=== PATIENT | female | born 1995 | race Caucasian/White ===

== ENCOUNTER → 2017-01-31 | Outpatient (CLI) | payer BC ==
--- NOTE | 2017-01-31 10:18 | REP ---
Clinical: . Technique: AP, lateral, bilateral oblique views right foot. Comparison: 04/05/2014. Findings: The osseous structures and joint spaces are intact and normal. There is no evidence for acute fracture or dislocation. Surrounding soft tissues are unremarkable. No subcutaneous emphysema or radiodense foreign body. Impression: Normal examination. No obvious pathology. Stable compared to 2013. Signed by Kunal Perez MD 01/31/2017 10:10 A
== END ==
LOC: M LRY 09:54
PROVIDERS: ATTEND Physician Assistant
DX: M79.671 Pain in right foot (principal)

== ENCOUNTER → 2017-07-31 | Outpatient (REF) | payer BC | LOC: M SFHCLERA 12:13 | PROVIDERS: ATTEND Nurse Practitioner Family | DX: J02.9 Acute pharyngitis, unspecified (principal) ==

== ENCOUNTER → 2017-12-29 | Outpatient (REF) | payer BC | LOC: M SFHCLERA 09:34 | DX: J02.9 Acute pharyngitis, unspecified (principal) ==

== ENCOUNTER → 2017-12-30 | Outpatient (REF) | payer BC | LOC: M SFHCLERA 10:29 | DX: R30.0 Dysuria (principal) | CPT/HCPCS: 87086 ==

== ENCOUNTER → 2018-10-31 | Outpatient (REF) | payer BC | LOC: M SFHCLERA 10:58 | PROVIDERS: ATTEND Family Medicine | DX: K50.00 Crohn's disease of small intestine without complications (principal) ==

== ENCOUNTER 2019-05-06 06:48 | Day surgery (SDC) | payer BC ==
[~2019-05-06] VITALS: Ht 121.9 cm; Wt 68.5 kg
[~2019-05-06 06:48] MED LIST: DULE100A IN; JULE1TAB PO; NS 1,000 ML IV ONE; SING10TA32 PO; ZYRTTAB8 PO
[2019-05-06] MEDS ORDERED: PROPOFOL 500 MG/50 ML VIAL As Ordered ONE (07:36)
[2019-05-06] MEDS ORDERED: LIDOCAINE 2% INJ 100 MG/5 ML SDV (FOR ANES.) As Ordered ONE (07:36)
--- NOTE | 2019-05-06 08:07 | ROOR ---
Patient Name: Aimee Morales Procedure Date: 05/06/2019 7:29 AM Date of : 1995 Age: 24 Room: [facility] Gender: Female Note Status: Finalized Procedure: Colonoscopy Indications: Suspected Crohn's disease of the small bowel, Abnormal CT of the GI tract Providers: Sonido Santacruz MD Referring MD: [facility] ALYSSA [facility], Admin. Requesting Provider: Medicines: Monitored Anesthesia Care Complications: No immediate complications. Procedure: Pre-Anesthesia Assessment: - Prior to the procedure, a History and Physical was performed, and patient medications and allergies were reviewed. The patient is competent. The risks and benefits of the procedure and the sedation options and risks were discussed with the patient. All questions were answered and informed consent was obtained. Patient identification and proposed procedure were verified by the physician, the nurse and the anesthesiologist in the procedure room. Mental Status Examination: alert and oriented. Airway Examination: normal oropharyngeal airway and neck mobility. Respiratory Examination: clear to auscultation. CV Examination: normal. Prophylactic Antibiotics: The patient does not require prophylactic antibiotics. Prior Anticoagulants: The patient has taken no previous anticoagulant or antiplatelet agents. ASA Grade Assessment: II - A patient with mild systemic disease. After reviewing the risks and benefits, the patient was deemed in satisfactory condition to undergo the procedure. The anesthesia plan was to use monitored anesthesia care (MAC). Immediately prior to administration of medications, the patient was re-assessed for adequacy to receive sedatives. The heart rate, respiratory rate, oxygen saturations, blood pressure, adequacy of pulmonary ventilation, and response to care were monitored throughout the procedure. The physical status of the patient was re-assessed after the procedure. The Colonoscope was introduced through the anus and advanced to the terminal ileum, with identification of the appendiceal orifice and IC valve. The colonoscopy was performed without difficulty. The patient tolerated the procedure well. The quality of the bowel preparation was good. The terminal ileum, ileocecal valve, appendiceal orifice, and rectum were photographed. Scope insertion time was 3 minutes. Scope withdrawal time was 9 minutes. The total duration of the procedure was 12 minutes. Findings: The perianal and digital rectal examinations were normal. The ileocecal valve contained a benign-appearing, intrinsic severe stenosis that was non-traversed. Multiple biopsies were obtained in the terminal ileum and at the ileocecal valve with cold forceps for histology. Verification of patient identification for the specimen was done by the physician and nurse using the patient's name, date and medical record number. Estimated blood loss was minimal. A patchy area of granular mucosa was found in the cecum. Biopsies for histology were taken with a cold forceps for evaluation of celiac disease. Normal mucosa was found from rectum to ascending colon. The retroflexed view of the distal rectum and anal verge was normal and showed no anal or rectal abnormalities. Impression: - Stricture at the ileocecal valve. - Granularity in the cecum. Biopsied. - Normal mucosa from rectum to ascending colon. - The distal rectum and anal verge are normal on retroflexion view. - Multiple biopsies were obtained in the terminal ileum and at the ileocecal valve. Recommendation: - Patient has a contact number available for emergencies. The signs and symptoms of potential delayed complications were discussed with the patient. Return to normal activities tomorrow. Written discharge instructions were provided to the patient. - Resume previous diet. - Continue present medications. - Await pathology results. - Check IBD serology at appointment to be scheduled. - Return to GI clinic 2-3 weeks. Please call GI clinic @ [phone] for apppointment date and time. - Return to primary care physician. Sonido Santacruz MD Sonido Santacruz MD 05/06/2019 8:07:15 AM Electronically signed by Sonido Santacruz MD Number of Addenda: 0 Note Initiated On: 05/06/2019 7:29 AM Estimated Blood Loss: Estimated blood loss was minimal.
[2019-05-06 08:29] VITALS: BP 94/60
== END 2019-05-06 08:31 | disposition home or self-care (01) ==
LOC: M OPP 06:48
PROVIDERS: ATTEND Internal Medicine Gastroenterology
DX: K56.699 Other intestinal obstruction unspecified as to partial versus complete obstruction (principal); K52.9 Noninfective gastroenteritis and colitis, unspecified; R93.3 Abnormal findings on diagnostic imaging of other parts of digestive tract

== ENCOUNTER → 2019-05-26 | Outpatient (CLI) | payer BC ==
[~2019-05-26] MED LIST changes: +AZAT50TA2; +BUDE3CAP; -NS 1,000 ML IV ONE; +OMEP40CA97 PO; +ONDA4TAB6 PO; +PERC5TAB12 PO
[2019-05-26 07:21] LABS: BASO % 0.4 % (0.0-1.0); EOS % 0.1 % (0.0-3.0); HEMATOCRIT 42.4 % (36.0-47.0); HEMOGLOBIN 13.1 g/dl (12.0-15.5); LYMPH # 0.9 10^3/uL (1.5-6.5); LYMPH % 14.1 % (24.0-44.0); MEAN CORPUSCULAR HEMOGLOBIN 25.7 pg (27.0-33.0); MEAN CORPUSCULAR HGB CONC 30.9 g/dl (32.0-36.5); MEAN CORPUSCULAR VOLUME 83.3 fl (80.0-96.0); MONO # 0.2 10^3/uL (0.0-0.8); MONO % 2.5 % (0.0-5.0); NEUTROPHILS # 5.5 10^3/uL (1.8-7.7); NEUTROPHILS % 82.8 % (36.0-66.0); PLATELET COUNT, AUTOMATED 391 10^3/uL (150-450); RED BLOOD COUNT 5.09 10^6/uL (4.00-5.40); WHITE BLOOD COUNT 6.7 10^3/uL (4.0-10.0)
[2019-05-26 07:46] LABS: ALBUMIN 3.5 GM/DL (3.2-5.2); ALT/SGPT 37 U/L (12-78); BILIRUBIN,DIRECT 0.1 MG/DL (0.0-0.2); BILIRUBIN,TOTAL 0.3 MG/DL (0.2-1.0); BLOOD UREA NITROGEN 10 MG/DL (7-18); CREATININE FOR GFR 0.76 MG/DL (0.55-1.30); GLOMERULAR FILTRATION RATE > 60.0 (>60); TOTAL PROTEIN 7.9 GM/DL (6.4-8.2)
[2019-05-26 11:37] LABS: HEPATITIS C VIRUS ABY INDEX 0.1 INDEX (<0.8)
[2019-05-26 12:09] LABS: HEPATITIS B SURFACE ANTIBODY NEGATIVE (POSITIVE)
[2019-05-27 10:39] LABS: HEPATITIS B CORE ANTIBODY IGG Negative (Negative)
== END ==
LOC: M LAB 05-24 13:29
PROVIDERS: ATTEND Internal Medicine Gastroenterology
DX: K50.018 Crohn's disease of small intestine with other complication (principal)

== ENCOUNTER → 2019-06-23 | Outpatient (CLI) | payer BC ==
[~2019-06-23] MED LIST changes: +OMEP40CA2 PO; -OMEP40CA97 PO
[2019-06-23 13:42] LABS: BASO # 0.1 10^3/uL (0.0-0.2); BASO % 0.6 % (0.0-1.0); EOS # 0.3 10^3/uL (0.0-0.50); EOS % 2.6 % (0.0-3.0); HEMATOCRIT 40.7 % (36.0-47.0); HEMOGLOBIN 12.1 g/dl (12.0-15.5); LYMPH # 2.9 10^3/uL (1.5-6.5); LYMPH % 28.6 % (24.0-44.0); MEAN CORPUSCULAR HEMOGLOBIN 25.6 pg (27.0-33.0); MEAN CORPUSCULAR HGB CONC 29.7 g/dl (32.0-36.5); MEAN CORPUSCULAR VOLUME 86.2 fl (80.0-96.0); MONO # 0.7 10^3/uL (0.0-0.8); MONO % 6.4 % (0.0-5.0); NEUTROPHILS # 6.3 10^3/uL (1.8-7.7); NEUTROPHILS % 61.5 % (36.0-66.0); PLATELET COUNT, AUTOMATED 475 10^3/uL (150-450); RED BLOOD COUNT 4.72 10^6/uL (4.00-5.40); WHITE BLOOD COUNT 10.2 10^3/uL (4.0-10.0)
[2019-06-23 14:15] LABS: ALBUMIN 3.3 GM/DL (3.2-5.2); ALT/SGPT 24 U/L (12-78); BILIRUBIN,DIRECT < 0.1 MG/DL (0.0-0.2); BILIRUBIN,TOTAL 0.3 MG/DL (0.2-1.0); TOTAL PROTEIN 7.3 GM/DL (6.4-8.2)
== END ==
LOC: M LAB 07:15
PROVIDERS: ATTEND Internal Medicine Gastroenterology
DX: K50.018 Crohn's disease of small intestine with other complication (principal)

== ENCOUNTER 2019-06-25 11:26 | Emergency (ER) | payer BC ==
[~2019-06-25] VITALS: Ht 149.9 cm; Wt 70.2 kg
[~2019-06-25 11:26] MED LIST changes: -AZAT50TA2; -BUDE3CAP; -OMEP40CA2 PO; -ONDA4TAB6 PO; -PERC5TAB12 PO
[2019-06-25] MEDS ORDERED: AZAT50TA2 (11:32)
[2019-06-25] MEDS ORDERED: OMEP40CA97 PO (11:32)
[2019-06-25] MEDS ORDERED: BUDE3CAP (11:32)
[2019-06-25 12:55] LABS: BASO # 0.1 10^3/uL (0.0-0.2); BASO % 0.4 % (0.0-1.0); EOS # 0.1 10^3/uL (0.0-0.50); EOS % 1.1 % (0.0-3.0); HEMATOCRIT 39.9 % (36.0-47.0); HEMOGLOBIN 11.9 g/dl (12.0-15.5); LYMPH # 1.6 10^3/uL (1.5-6.5); LYMPH % 12.1 % (24.0-44.0); MEAN CORPUSCULAR HEMOGLOBIN 26.6 pg (27.0-33.0); MEAN CORPUSCULAR HGB CONC 29.8 g/dl (32.0-36.5); MEAN CORPUSCULAR VOLUME 89.3 fl (80.0-96.0); MONO # 0.7 10^3/uL (0.0-0.8); MONO % 5.6 % (0.0-5.0); NEUTROPHILS # 10.5 10^3/uL (1.8-7.7); NEUTROPHILS % 80.4 % (36.0-66.0); PLATELET COUNT, AUTOMATED 418 10^3/uL (150-450); RED BLOOD COUNT 4.47 10^6/uL (4.00-5.40)
[2019-06-25 13:19] LABS: ALBUMIN 3.1 GM/DL (3.2-5.2); ALT/SGPT 18 U/L (12-78); BILIRUBIN,DIRECT 0.2 MG/DL (0.0-0.2); BILIRUBIN,TOTAL 0.5 MG/DL (0.2-1.0); BLOOD UREA NITROGEN 10 MG/DL (7-18); CALCIUM LEVEL 8.8 MG/DL (8.5-10.1); CARBON DIOXIDE LEVEL 26 MEQ/L (21-32); CHLORIDE LEVEL 105 MEQ/L (98-107); CREATININE FOR GFR 0.68 MG/DL (0.55-1.30); GLOMERULAR FILTRATION RATE > 60.0 (>60); GLUCOSE, FASTING 73 MG/DL (70-100); LIPASE 296 U/L (73-393); SODIUM LEVEL 140 MEQ/L (136-145); TOTAL PROTEIN 6.9 GM/DL (6.4-8.2)
[2019-06-25] MEDS ORDERED: GI COCKTAIL 50ML BTL(HYOSCYAMINE/MAALOX/LIDOCAINE VISCOUS)(1:3:1) PO ONE (13:45)
[2019-06-25 14:06] LABS: CK-MB VALUE MASS < 1.0 NG/ML (<3.6); CPK CREATINE PHOSPHOKINASE 41 U/L (26-192); MB/CK RELATIVE INDEX 2.44 (< OR =4); TROPONIN I < 0.02 NG/ML (< 0.10)
--- NOTE | 2019-06-25 14:19 | REP ---
Chest x-ray: Two views. History: Epigastric pain . Comparison study: January 18, 2015 . Findings: The lungs are well inflated and free of infiltrate. The pleural angles are sharp. The heart size is normal. Pulmonary vasculature is not increased. No significant bony abnormality is seen. Impression: Negative chest x-ray. Electronically Signed by Vladimir Pena MD 06/25/2019 02:10 P
[2019-06-25] MEDS ORDERED: ONDANSETRON 4MG/2ML VIAL (J2405) IV ONE (14:45)
[2019-06-25] MEDS ORDERED: KETOROLAC 30 MG/ML VIAL (J1885) IV ONE (15:45)
--- NOTE | 2019-06-25 16:44 | REP ---
Right upper quadrant sonography: History: Upper abdominal pain. Rule out gallstones. Comparison study: No comparison study. Findings: Scanning through the right upper quadrant of the abdomen demonstrates a normal sized, thin-walled gallbladder without evidence of stone or polyp. Common bile duct is normal measuring 0.2 cm in greatest diameter. No focal liver lesion is seen. Liver size is normal. No pancreatic abnormality is observed. No right renal abnormality is seen. There is no evidence of ascites. The right kidney measures 8.6 x 4.2 x 3.5 cm. Impression: Negative right upper quadrant sonography. Electronically Signed by Vladimir Pena MD 06/25/2019 04:35 P
[2019-06-25] MEDS ORDERED: ONDA4TAB6 PO (16:58)
[2019-06-25] MEDS ORDERED: PERC5TAB12 PO (16:58)
[2019-06-25 17:21] VITALS: BP 119/76
--- NOTE | 2019-06-25 18:04 | ECGEPIP ---
[facility] - ED Test Date: 2019-06-25 Pat Name: ROJELIO MATOS Department: Room: - Gender: Female Benefits Advisor: RUY : 1995 Requested By: BENITO King PA-C Order Number: [id number] Reading MD: Rachele Germain Measurements Intervals Hubbard Rate: 96 P: 27 LA: 147 QRS: 34 QRSD: 90 T: 9 QT: 342 QTc: 433 Interpretive Statements SINUS RHYTHM NONSPECIFIC T-WAVE ABNORMALITY NO PRIOR Electronically Signed on 06-25-2019 18:04:05 EDT by Rachele Germain
== END 2019-06-25 17:16 | disposition home or self-care (01) ==
LOC: M ED 11:26
DX: R10.13 Epigastric pain (principal); K50.90 Crohn's disease, unspecified, without complications; J45.909 Unspecified asthma, uncomplicated; K52.9 Noninfective gastroenteritis and colitis, unspecified; Z79.899 Other long term (current) drug therapy; Z79.51 Long term (current) use of inhaled steroids; Z79.3 Long term (current) use of hormonal contraceptives
CPT/HCPCS: 71046; 76705; 80048; 80076; 81001; 82550; 82553; 83690; 84484; 84702; 85025; 87086; 93005; 96374; 96375; 99284; J1885; J2405

== ENCOUNTER 2019-09-19 11:05 | Outpatient (CLI) | payer BC ==
[~2019-09-19] VITALS: Ht 149.9 cm; Wt 70.2 kg
[~2019-09-19 11:05] MED LIST changes: +AZAT50TA2; +BUDE3CAP; +OMEP40CA97 PO; +ONDA4TAB6 PO; +PERC5TAB12 PO
[2019-09-19 11:15] VITALS: BP 132/74
[2019-09-19] MEDS ORDERED: 0.22 MICRON FILTER (METHACHOLINE/OCREVUS) XX ONE (11:45)
[2019-09-19 12:30] VITALS: BP 122/59
[2019-09-19] MEDS ORDERED: USTEKINUMAB 390 MG in NS 172 ML IV ONE (12:30)
[2019-09-19 13:00] VITALS: BP 117/65
[2019-09-19 13:30] VITALS: BP 118/67
[2019-09-19 14:00] VITALS: BP 114/65
== END 2019-09-19 14:30 | disposition home or self-care (01) ==
LOC: M INFU 11:05
PROVIDERS: ATTEND Internal Medicine Gastroenterology
DX: K50.90 Crohn's disease, unspecified, without complications (principal)
CPT/HCPCS: 96365; 96366; J3358

== ENCOUNTER → 2019-10-24 | Outpatient (CLI) | payer BC ==
[2019-10-24 10:55] LABS: BASO % 0.5 % (0.0-1.0); EOS # 0.1 10^3/uL (0.0-0.5); EOS % 1.2 % (0.0-3.0); HEMATOCRIT 38.5 % (36.0-47.0); LYMPH # 1.7 10^3/uL (1.5-5.0); LYMPH % 25.6 % (24.0-44.0); MEAN CORPUSCULAR HEMOGLOBIN 26.4 pg (27.0-33.0); MEAN CORPUSCULAR HGB CONC 31.2 g/dl (32.0-36.5); MEAN CORPUSCULAR VOLUME 84.6 fl (80.0-96.0); MONO # 0.5 10^3/uL (0.0-0.8); MONO % 7.3 % (0.0-5.0); NEUTROPHILS # 4.3 10^3/uL (1.5-8.5); NEUTROPHILS % 65.1 % (36.0-66.0); PLATELET COUNT, AUTOMATED 354 10^3/uL (150-450); RED BLOOD COUNT 4.55 10^6/uL (4.00-5.40); WHITE BLOOD COUNT 6.6 10^3/uL (4.0-10.0)
[2019-10-24 11:20] LABS: ALBUMIN 3.5 GM/DL (3.2-5.2); BILIRUBIN,DIRECT 0.1 MG/DL (0.0-0.2); BILIRUBIN,TOTAL 0.3 MG/DL (0.2-1.0); C REACTIVE PROTEIN QUANTITATIV 1.29 MG/DL (0.00-0.30); PERCENT SATURATION 12.1 % (13.2-45.0); TOTAL PROTEIN 7.5 GM/DL (6.4-8.2)
[2019-10-24 11:23] LABS: ERYTHROCYTE SEDIMENTATION RATE 31 mm/hr (0-20)
== END ==
LOC: M LAB 09:57
PROVIDERS: ATTEND Internal Medicine Gastroenterology
DX: K50.018 Crohn's disease of small intestine with other complication (principal)

== ENCOUNTER → 2019-11-14 | Outpatient (CLI) | payer BC ==
--- NOTE | 2019-11-19 08:58 | REP ---
Examination Requested: SBFT Reason For Exam: Crohn disease Small Bowel Follow Through The procedure was performed by LC Toth, under the direct supervision of Dr. Pena. The images were reviewed with Dr. Pena. The wash plant operator film shows no organomegaly or pathological masses. The intestinal gas pattern appears normal. The barium was administered and the barium column was followed through the small bowel to the level of the terminal ileum. Small bowel transit time was approximately 65 minutes. During fluoroscopy gentle palpation demonstrates a long section and irregular mucosa at the terminal ileum. There is a separation of loops. Mucosal irregularities and pad effect appears to have decreased since previous study dated 06/02/2019. These findings are consistent with Crohn disease. The remainder of the small bowel is unremarkable. Impression: 1. There is a separation of loops. Mucosal irregularities and pad effect appears to have decreased since previous study dated 06/02/2019. These findings are consistent with Crohn disease. 0.5 minutes of fluoroscopy time was utilized for this procedure. Some fluoroscopic images are performed with last image hold technology. These images require no additional radiation. Reviewed by LC Page 11/14/2019 05:31 P Electronically Signed by Vladimir Pena MD 11/19/2019 08:50 A
== END ==
LOC: M RAD 08:04
PROVIDERS: ATTEND Internal Medicine Gastroenterology
DX: K50.019 Crohn's disease of small intestine with unspecified complications (principal); R93.3 Abnormal findings on diagnostic imaging of other parts of digestive tract

== ENCOUNTER → 2020-01-06 | Outpatient (REF) | payer BC | LOC: M SFHCLERA 11:51 | PROVIDERS: ATTEND Nurse Practitioner Family | DX: R39.9 Unspecified symptoms and signs involving the genitourinary system (principal) ==

== ENCOUNTER → 2020-01-06 | Outpatient (CLI) | payer BC ==
[2020-01-06 08:11] LABS: BASO # 0.1 10^3/uL (0.0-0.2); BASO % 0.7 % (0.0-1.0); EOS # 0.2 10^3/uL (0.0-0.5); EOS % 2.2 % (0.0-3.0); HEMATOCRIT 38.8 % (36.0-47.0); HEMOGLOBIN 12.2 g/dl (12.0-15.5); LYMPH # 1.8 10^3/uL (1.5-5.0); LYMPH % 25.9 % (24.0-44.0); MEAN CORPUSCULAR HEMOGLOBIN 26.3 pg (27.0-33.0); MEAN CORPUSCULAR HGB CONC 31.4 g/dl (32.0-36.5); MEAN CORPUSCULAR VOLUME 83.6 fl (80.0-96.0); MONO # 0.5 10^3/uL (0.0-0.8); MONO % 6.8 % (0.0-5.0); NEUTROPHILS # 4.4 10^3/uL (1.5-8.5); NEUTROPHILS % 64.3 % (36.0-66.0); PLATELET COUNT, AUTOMATED 327 10^3/uL (150-450); RED BLOOD COUNT 4.64 10^6/uL (4.00-5.40); WHITE BLOOD COUNT 6.9 10^3/uL (4.0-10.0)
[2020-01-06 08:29] LABS: ERYTHROCYTE SEDIMENTATION RATE 26 mm/hr (0-20)
[2020-01-06 08:40] LABS: ALBUMIN 3.6 GM/DL (3.2-5.2); ALT/SGPT 22 U/L (12-78); BILIRUBIN,DIRECT < 0.1 MG/DL (0.0-0.2); BILIRUBIN,TOTAL 0.3 MG/DL (0.2-1.0); C REACTIVE PROTEIN QUANTITATIV 1.26 MG/DL (0.00-0.30); IRON (FE) 50 UG/DL (50-170); PERCENT SATURATION 9.7 % (13.2-45.0); TOTAL IRON BINDING CAPACITY 518 UG/DL (250-450); TOTAL PROTEIN 7.8 GM/DL (6.4-8.2)
[2020-01-06 09:42] LABS: H PYLORI QUALITATIVE IgG NEGATIVE (NEGATIVE)
[2020-01-08 08:06] LABS: IGASUB2 138.5 mg/dL (73.2-301.2); IGASUB3 30.5 mg/dL (13.4-97.9); IgA SERUM (part of Subclasses) 182 mg/dL (87-352); TISSUE TRANSGLUTAMINASE IgA <2 U/mL (0-3); UNITSIGA FOR GLIADIN IGA 5 units (0-19); UNITSIGG FOR GLIADIN IGG 5 units (0-19)
== END ==
LOC: M LAB 07:27
PROVIDERS: ATTEND Internal Medicine Gastroenterology
DX: K50.018 Crohn's disease of small intestine with other complication (principal)

== ENCOUNTER → 2020-01-10 | Outpatient (REF) | payer BC ==
[2020-01-10 14:46] LABS: APPEARANCE, URINE CLOUDY (CLEAR); BACTERIA, URINE AUTO 1+ (NEGATIVE); BILIRUBIN, URINE AUTO NEGATIVE (NEGATIVE); BLOOD, URINE BLOOD NEGATIVE (NEGATIVE); COLOR, URINE YELLOW (YELLOW); GLUCOSE, URINE (UA) AUTO NEGATIVE (NEGATIVE); KETONE, URINE AUTO NEGATIVE (NEGATIVE); LEUKOCYTE ESTERASE, URINE AUTO TRACE (NEGATIVE); MUCUS, URINE SMALL (NEGATIVE); NITRITE, URINE AUTO NEGATIVE (NEGATIVE); PROTEIN, URINE AUTO NEGATIVE (NEGATIVE); RBC, URINE AUTO 3 /HPF (0-3); SQUAMOUS EPITHELIAL CELL UR AU 17 /HPF (0-6); UROBILINOGEN, URINE AUTO 0.2 mg/dL (0.0-2.0); WBC, URINE AUTO 6 /HPF (0-3)
[2020-01-10 14:49] LABS: BLOOD UREA NITROGEN 7 MG/DL (7-18); CALCIUM LEVEL 9.3 MG/DL (8.5-10.1); CARBON DIOXIDE LEVEL 24 MEQ/L (21-32); CHLORIDE LEVEL 107 MEQ/L (98-107); CREATININE FOR GFR 0.73 MG/DL (0.55-1.30); GLOMERULAR FILTRATION RATE > 60.0 (>60); GLUCOSE, FASTING 76 MG/DL (70-100); POTASSIUM SERUM 4.2 MEQ/L (3.5-5.1); SODIUM LEVEL 138 MEQ/L (136-145)
== END ==
LOC: M SFHCLERA 09:26
PROVIDERS: ATTEND Family Medicine
DX: R31.9 Hematuria, unspecified (principal)

== ENCOUNTER → 2020-01-12 | Outpatient (CLI) | payer BC ==
--- NOTE | 2020-01-12 17:14 | REP ---
RENAL ULTRASOUND: Real-time sonographic evaluation of the kidneys performed. The study is limited due to patient body habitus and motion. The left kidney is smaller than the right. The right kidney measures 9. 2 x 4.6 x 3.6 cm and left kidney 8.2 x 3.5 x 4.2 cm. There is no hydronephrosis bilaterally. No gross renal stone or mass is seen. Urinary bladder is empty. IMPRESSION: Limited exam due to patient body habitus and motion. Somewhat small size left kidney. No hydronephrosis or other abnormality. Electronically Signed by Marques Crowder MD 01/13/2020 07:48 P
== END ==
LOC: M RAD 14:55
PROVIDERS: ATTEND Family Medicine
DX: R31.9 Hematuria, unspecified (principal)

== ENCOUNTER → 2020-01-13 | Outpatient (REF) | payer BC | LOC: M SFHCLERA 11:33 | PROVIDERS: ATTEND Family Medicine | DX: R35.0 Frequency of micturition (principal); Z53.9 Procedure and treatment not carried out, unspecified reason ==

== ENCOUNTER → 2020-01-23 | Outpatient (REF) | payer BC ==
[2020-01-23 13:38] LABS: APPEARANCE, URINE CLOUDY (CLEAR); BILIRUBIN, URINE AUTO NEGATIVE (NEGATIVE); BLOOD, URINE BLOOD NEGATIVE (NEGATIVE); COLOR, URINE YELLOW (YELLOW); GLUCOSE, URINE (UA) AUTO NEGATIVE (NEGATIVE); KETONE, URINE AUTO NEGATIVE (NEGATIVE); LEUKOCYTE ESTERASE, URINE AUTO TRACE (NEGATIVE); NITRITE, URINE AUTO NEGATIVE (NEGATIVE); PROTEIN, URINE AUTO NEGATIVE (NEGATIVE); SPECIFIC GRAVITY URINE AUTO 1.019 (1.002-1.035); UROBILINOGEN, URINE AUTO 0.2 mg/dL (0.0-2.0)
[2020-01-23 13:45] LABS: BACTERIA, URINE AUTO 2+ (NEGATIVE); MUCUS, URINE SMALL (NEGATIVE); RBC, URINE AUTO 3 /HPF (0-3); SQUAMOUS EPITHELIAL CELL UR AU 8 /HPF (0-6); WBC, URINE AUTO 6 /HPF (0-3)
== END ==
LOC: M SMT 13:19
PROVIDERS: ATTEND Nurse Practitioner Women's Health
DX: R39.89 Other symptoms and signs involving the genitourinary system (principal)

== ENCOUNTER → 2020-01-27 | Outpatient (REF) | payer BC ==
[2020-01-27 13:18] LABS: APPEARANCE, URINE CLEAR (CLEAR); BACTERIA, URINE AUTO 1+ (NEGATIVE); BILIRUBIN, URINE AUTO NEGATIVE (NEGATIVE); BLOOD, URINE BLOOD NEGATIVE (NEGATIVE); COLOR, URINE YELLOW (YELLOW); GLUCOSE, URINE (UA) AUTO NEGATIVE (NEGATIVE); KETONE, URINE AUTO NEGATIVE (NEGATIVE); LEUKOCYTE ESTERASE, URINE AUTO NEGATIVE (NEGATIVE); MUCUS, URINE SMALL (NEGATIVE); NITRITE, URINE AUTO NEGATIVE (NEGATIVE); PROTEIN, URINE AUTO NEGATIVE (NEGATIVE); RBC, URINE AUTO 2 /HPF (0-3); SPECIFIC GRAVITY URINE AUTO 1.021 (1.002-1.035); SQUAMOUS EPITHELIAL CELL UR AU 2 /HPF (0-6); UROBILINOGEN, URINE AUTO 0.2 mg/dL (0.0-2.0); WBC, URINE AUTO 2 /HPF (0-3)
== END ==
LOC: M SMT 12:39
PROVIDERS: ATTEND Nurse Practitioner Women's Health
DX: R39.9 Unspecified symptoms and signs involving the genitourinary system (principal)

== ENCOUNTER → 2020-02-23 | Outpatient (CLI) | payer BC ==
[2020-02-23 10:37] LABS: BASO % 0.4 % (0.0-1.0); EOS # 0.2 10^3/uL (0.0-0.5); EOS % 2.3 % (0.0-3.0); HEMATOCRIT 41.1 % (36.0-47.0); HEMOGLOBIN 13.2 g/dl (12.0-15.5); LYMPH # 2.1 10^3/uL (1.5-5.0); LYMPH % 29.3 % (24.0-44.0); MEAN CORPUSCULAR HGB CONC 32.1 g/dl (32.0-36.5); MEAN CORPUSCULAR VOLUME 81.1 fl (80.0-96.0); MONO # 0.4 10^3/uL (0.0-0.8); MONO % 5.1 % (0.0-5.0); NEUTROPHILS # 4.5 10^3/uL (1.5-8.5); NEUTROPHILS % 62.6 % (36.0-66.0); PLATELET COUNT, AUTOMATED 319 10^3/uL (150-450); RED BLOOD COUNT 5.07 10^6/uL (4.00-5.40); WHITE BLOOD COUNT 7.1 10^3/uL (4.0-10.0)
[2020-02-23 11:02] LABS: ALBUMIN 3.3 GM/DL (3.2-5.2); ALT/SGPT 21 U/L (12-78); BILIRUBIN,TOTAL 0.3 MG/DL (0.2-1.0); BLOOD UREA NITROGEN 7 MG/DL (7-18); CALCIUM LEVEL 8.8 MG/DL (8.5-10.1); CARBON DIOXIDE LEVEL 22 MEQ/L (21-32); CHLORIDE LEVEL 108 MEQ/L (98-107); CREATININE FOR GFR 0.74 MG/DL (0.55-1.30); GLOMERULAR FILTRATION RATE > 60.0 (>60); GLUCOSE, FASTING 76 MG/DL (70-100); IMMUNOGLOBULIN G 1170 MG/DL (681-1648); POTASSIUM SERUM 4.1 MEQ/L (3.5-5.1); RHEUMATOID FACTOR QUANT < 10.0 IU/ML (<15.0); SODIUM LEVEL 140 MEQ/L (136-145); TOTAL PROTEIN 7.6 GM/DL (6.4-8.2)
--- NOTE | 2020-02-24 03:53 | REP ---
Clinical: Chronic asthma with restrictive pulmonary function testing Comparison: 06/25/2019 . Technique: PA and lateral. Findings: The mediastinum and cardiac silhouette are normal. The lung babcock are clear and without acute consolidation, effusion, or pneumothorax. The skeletal structures are intact and normal. Impression: 1. No acute cardiopulmonary process. Electronically Signed by Kunal Perez MD 02/24/2020 03:45 A
[2020-02-24 14:15] LABS: ANTINUCLEAR ANTIBODIES DIRECT Negative (Negative)
== END ==
LOC: M LAB 09:46
PROVIDERS: ATTEND Allergy & Immunology
DX: R05 Cough (principal); R06.00 Dyspnea, unspecified; R53.81 Other malaise

== ENCOUNTER → 2020-05-17 | Outpatient (CLI) | payer BC ==
[2020-05-17 11:55] LABS: BASO % 0.5 % (0.0-1.0); EOS # 0.2 10^3/uL (0.0-0.5); EOS % 2.5 % (0.0-3.0); HEMATOCRIT 41.3 % (36.0-47.0); HEMOGLOBIN 12.9 g/dl (12.0-15.5); LYMPH % 33.3 % (24.0-44.0); MEAN CORPUSCULAR HEMOGLOBIN 25.2 pg (27.0-33.0); MEAN CORPUSCULAR HGB CONC 31.2 g/dl (32.0-36.5); MEAN CORPUSCULAR VOLUME 80.7 fl (80.0-96.0); MONO # 0.3 10^3/uL (0.0-0.8); MONO % 5.4 % (0.0-5.0); NEUTROPHILS # 3.5 10^3/uL (1.5-8.5); NEUTROPHILS % 58.1 % (36.0-66.0); PLATELET COUNT, AUTOMATED 357 10^3/uL (150-450); RED BLOOD COUNT 5.12 10^6/uL (4.00-5.40)
[2020-05-17 12:43] LABS: ERYTHROCYTE SEDIMENTATION RATE 36 mm/hr (0-20)
[2020-05-17 12:55] LABS: ALBUMIN 3.6 GM/DL (3.2-5.2); ALT/SGPT 14 U/L (12-78); BILIRUBIN,DIRECT < 0.1 MG/DL (0.0-0.2); BILIRUBIN,TOTAL 0.4 MG/DL (0.2-1.0); C REACTIVE PROTEIN QUANTITATIV 1.31 MG/DL (0.00-0.30); FERRITIN 13 NG/ML (8-252); IRON (FE) 59 UG/DL (50-170); TOTAL IRON BINDING CAPACITY 537 UG/DL (250-450)
== END ==
LOC: M LAB 10:51
PROVIDERS: ATTEND Internal Medicine Gastroenterology
DX: K50.018 Crohn's disease of small intestine with other complication (principal)

== ENCOUNTER → 2020-05-26 | Outpatient (REF) | payer BC ==
[2020-05-26 19:18] LABS: AMORPHOUS SEDIMENT SMALL (NEGATIVE); APPEARANCE, URINE TURBID (CLEAR); BACTERIA, URINE AUTO NEGATIVE (NEGATIVE); BILIRUBIN, URINE AUTO NEGATIVE (NEGATIVE); BLOOD, URINE BLOOD 1+ (NEGATIVE); COLOR, URINE YELLOW (YELLOW); GLUCOSE, URINE (UA) AUTO NEGATIVE (NEGATIVE); KETONE, URINE AUTO NEGATIVE (NEGATIVE); LEUKOCYTE ESTERASE, URINE AUTO TRACE (NEGATIVE); NITRITE, URINE AUTO NEGATIVE (NEGATIVE); PROTEIN, URINE AUTO NEGATIVE (NEGATIVE); RBC, URINE AUTO 0 /HPF (0-3); SQUAMOUS EPITHELIAL CELL UR AU 4 /HPF (0-6); UROBILINOGEN, URINE AUTO 0.2 mg/dL (0.0-2.0); WBC, URINE AUTO 10 /HPF (0-3)
== END ==
LOC: M SMT 16:40
PROVIDERS: ATTEND Nurse Practitioner Women's Health
DX: R35.0 Frequency of micturition (principal)

== ENCOUNTER 2020-06-18 07:30 | Day surgery (SDC) | payer BC ==
[2020-06-18] MEDS ORDERED: propofoL 200 MG/20 ML VIAL As Ordered ONE ×2 (08:29→09:10)
--- NOTE | 2020-07-21 11:33 | ROOR ---
Patient Name: Aimee Morales Procedure Date: 06/18/2020 9:10 AM Date of : 1995 Age: 25 Room: [facility] Gender: Female Note Status: Finalized Procedure: Colonoscopy Indications: Disease activity assessment of Crohn's disease of the small bowel and colon, Assess therapeutic response to therapy of Crohn's disease of the small bowel and colon Providers: Sonido Santacruz MD Referring MD: More Hinton Md Requesting Provider: Medicines: Monitored Anesthesia Care Complications: No immediate complications. Procedure: Pre-Anesthesia Assessment: - Prior to the procedure, a History and Physical was performed, and patient medications and allergies were reviewed. The patient is competent. The risks and benefits of the procedure and the sedation options and risks were discussed with the patient. All questions were answered and informed consent was obtained. Patient identification and proposed procedure were verified by the physician, the nurse and the anesthesiologist in the procedure room. Mental Status Examination: alert and oriented. Airway Examination: normal oropharyngeal airway and neck mobility. Respiratory Examination: clear to auscultation. CV Examination: normal. Prophylactic Antibiotics: The patient does not require prophylactic antibiotics. Prior Anticoagulants: The patient has taken no previous anticoagulant or antiplatelet agents. ASA Grade Assessment: I - A normal, healthy patient. After reviewing the risks and benefits, the patient was deemed in satisfactory condition to undergo the procedure. The anesthesia plan was to use monitored anesthesia care (MAC). Immediately prior to administration of medications, the patient was re-assessed for adequacy to receive sedatives. The heart rate, respiratory rate, oxygen saturations, blood pressure, adequacy of pulmonary ventilation, and response to care were monitored throughout the procedure. The physical status of the patient was re-assessed after the procedure. The Colonoscope was introduced through the anus and advanced to the terminal ileum, with identification of the appendiceal orifice and IC valve. The colonoscopy was performed without difficulty. The patient tolerated the procedure well. The quality of the bowel preparation was excellent. The terminal ileum, ileocecal valve, appendiceal orifice, and rectum were photographed. Scope insertion time was 2 minutes. Scope withdrawal time was 10 minutes. The total duration of the procedure was 12 minutes. Findings: The perianal and digital rectal examinations were normal. The terminal ileum appeared normal. Biopsies were taken with a cold forceps for histology. Verification of patient identification for the specimen was done by the physician and nurse using the patient's name, date and medical record number. Estimated blood loss was minimal. Normal mucosa was found in the entire colon. Biopsies for histology were taken with a cold forceps from the right colon, left colon, transverse colon and rectosigmoid colon for evaluation of microscopic colitis. The retroflexed view of the distal rectum and anal verge was normal and showed no anal or rectal abnormalities. There is no endoscopic evidence of inflammation, stricture or ulcerations at 20 cm from the IC valve. Impression: - The examined portion of the ileum was normal. Biopsied. - Normal mucosa in the entire examined colon. Biopsied. Recommendation: - Patient has a contact number available for emergencies. The signs and symptoms of potential delayed complications were discussed with the patient. Return to normal activities tomorrow. Written discharge instructions were provided to the patient. - High fiber diet. - Continue present medications. - Await pathology results. - Repeat colonoscopy in 8 years for surveillance based on pathology results. - Telephone GI clinic for pathology results in 2 weeks. - Return to primary care physician. Sonido Santacruz MD Sonido Santacruz MD 06/18/2020 9:45:13 AM Number of Addenda: 0 Note Initiated On: 06/18/2020 9:10 AM Estimated Blood Loss: Estimated blood loss was minimal.
== END 2020-06-18 10:10 | disposition home or self-care (01) ==
LOC: M OPP 07:30
PROVIDERS: ATTEND Internal Medicine Gastroenterology
DX: K50.80 Crohn's disease of both small and large intestine without complications (principal); R10.31 Right lower quadrant pain; Z08 Encounter for follow-up examination after completed treatment for malignant neoplasm; Z79.899 Other long term (current) drug therapy

== ENCOUNTER → 2021-02-15 | Outpatient (CLI) | payer BC ==
[2021-02-15 12:48] LABS: ALBUMIN 3.3 GM/DL (3.2-5.2); ALT/SGPT 16 U/L (12-78); BILIRUBIN,DIRECT < 0.1 MG/DL (0.0-0.2); BILIRUBIN,TOTAL 0.2 MG/DL (0.2-1.0); BLOOD UREA NITROGEN 8 MG/DL (7-18); C REACTIVE PROTEIN QUANTITATIV 1.18 MG/DL (0.00-0.30); CREATININE FOR GFR 0.67 MG/DL (0.55-1.30); GLOMERULAR FILTRATION RATE > 60.0 (>60); IRON (FE) 55 UG/DL (50-170); PERCENT SATURATION 11.6 % (13.2-45.0); TOTAL IRON BINDING CAPACITY 473 UG/DL (250-450)
== END ==
LOC: M LAB 10:46
PROVIDERS: ATTEND Internal Medicine Gastroenterology
DX: K50.80 Crohn's disease of both small and large intestine without complications (principal)

== ENCOUNTER → 2021-03-17 | Outpatient (CLI) | payer BC ==
[2021-03-17 14:44] LABS: FREE T4 0.95 NG/DL (0.76-1.46); THYROID STIMULATING HORMONE 2.54 uIU/ML (0.358-3.740)
== END ==
LOC: M LAB 13:33
PROVIDERS: ATTEND Family Medicine
DX: R00.2 Palpitations (principal)

== ENCOUNTER → 2021-03-31 | Outpatient (CLI) | payer BC ==
--- NOTE | 2021-04-04 10:13 | ECHO ---
DATE OF PROCEDURE: 03/31/2021 Age: 25 Gender: Female REFERRING PHYSICIAN: More Hinton MD. REASON FOR STUDY: Palpitations. 2D MEASUREMENTS: IVS 0.84 cm LV 4.0 cm LVPW 0.92 cm LA 3.7 cm Aorta 2.6 cm IVC 1.4 cm DOPPLER MEASUREMENT Peak velocity across the aortic valve 1.3 m/s Peak velocity across the LVOT 0.71 m/s Mitral E 0.86 Mitral A 0.75 with a ratio of 1.1 Maximum tricuspid valve velocity 2.4 m/s 2D COMMENTS: 1. Normal left ventricular size, wall thickness, and normal global left ventricular systolic function. The estimated left ventricular systolic ejection fraction is 60% to 65%. 2. Normal left atrium. Normal right atrium and right ventricle. 3. The atrial septum appeared to be normal without evidence of defect or shunt. 4. Normal aortic root. 5. No pericardial effusion seen. 6. The aortic valve, mitral valve, tricuspid valve, and pulmonic valve appear to be normal. 7. The inferior vena cava was normal in size. Central venous pressure is most likely normal. DOPPLER: Only [id number] tricuspid regurgitation detected. The calculated pulmonary artery systolic pressure varies between 30 to 40 mmHg. Assessment of the left ventricular diastolic function was normal. IMPRESSION: 1. Normal global left ventricular systolic and diastolic function. 2. [id number] tricuspid regurgitation with probably mild pulmonary hypertension. MTDD
== END ==
LOC: M CARPUL 14:29
PROVIDERS: ATTEND Family Medicine
DX: R00.2 Palpitations (principal)

== ENCOUNTER → 2021-09-02 | Outpatient (CLI) | payer BC ==
[~2021-09-02] MED LIST changes: +OMEP40CA4 PO; -OMEP40CA97 PO
--- NOTE | 2021-09-02 08:06 | REP ---
INDICATION: PAIN IN RIGHT KNEE COMPARISON: None. TECHNIQUE: AP, lateral, bilateral oblique and sunrise views. FINDINGS: The osseous structures and joint spaces are intact and normal. There is no evidence for acute fracture or dislocation. No joint effusion is appreciated. Surrounding soft tissues are unremarkable. No subcutaneous emphysema or radiodense foreign body. IMPRESSION: Normal age-appropriate right knee examination. No acute fracture or dislocation. <Electronically signed by Kunal Perez > 09/02/21 0841
== END ==
LOC: M RAD 07:21
PROVIDERS: ATTEND Student in an Organized Health Care Education/Training Program
DX: M25.561 Pain in right knee (principal)

== ENCOUNTER 2021-10-17 16:17 | Emergency (ER) | payer OTHER, BC ==
[~2021-10-17] VITALS: Ht 149.9 cm; Wt 80.6 kg
--- OUTSIDE RECORDS SUMMARY | 2021-10-17 16:24 | CCD ---
Author Author [facility] Organization [facility] Address Unknown Phone Unavailable Care Team Providers Care Volleyball Assembler Name Role Phone Carroll, Emliy Unavailable PROBLEMS Type Condition ICD9-CM Code AST51-UP Code Onset Dates Condition S tatus W/U Status Risk SNOMED Code Notes Problem Moderate persistent asthma without complication J4 5.40 Active confirmed 908447749 Problem Obesity (BMI 30.0-34.9) E66.9 Active confirmed 269094896902602 Problem Nocturia R35.1 Active confirmed 234235005 Problem Generalized anxiety disorder F41.1 Active confirme d 82637257 Problem Crohn's disease without comp lication, unspecified gastrointestinal tract location K50.90 Active confirmed 78778400 Problem Seasonal allergic rhinitis, unspecified trigger J3 0.2 Active confirmed 712270192 Problem Intrinsic eczema L20.84 Active confirmed 240 68013 ALLERGIES Allergen (clinical drug ingredient) Drug/Non Drug Allergy do cumented on EMR Reaction Allergy Type Onset Date Status seasonal and environmental sneezing, watery, itchiness Non Drug Allergy Active ENCOUNTERS from 1995 to 2021-08-16 Encounter Location Date Provider Diagnosis [facility] Dermatology [address] [place] [address] [place] [address] Aug, Emily Hodges IMMUNIZATIONS Vaccine Route Administration Date Status COVID-19 dose #2 given elsewhere Unspecified Unknown March 14, 2021 Administered COVID-19 dose #1 given elsewhere Unspecified Unknown Apr 2020 Administered Meningococcal 0.5mL Menveo Groups A,C,Y & W-135 IM Intramuscular Oct 31, 2017 Administered TDAP 0.5mL (Boostrix) IM Intramuscular Jun 26, 2019 Administe red Influenza 6mo & up Fluzone Unknown Sep 19, 2017 Admin istered Influenza 6mo & up Fluzone Unknown January 18, 2015 Other s Hepatitis B Adult 1.0mL Engerix-B IM Intramuscular March 16, 2020 Administered Hepatitis B Adult 1.0mL Engerix-B IM Intramuscular Nov 19, 2019 Administered Hepatitis B Adult 1.0mL Engerix-B IM Intramuscular Aug 22, 2019 Administered SOCIAL HISTORY Tobacco Use: Social History Observation Description Date Details (start date - stop date) Never Smoker Sex Assigned At : Social History Observation Description Sex Assigned At Unknown Education: Question Answer Notes Level of Education: College Audit Question Answer Notes Total Score: 0 Interpretation: Alcohol Education Language: Question Answer Notes Languages spoken: Emir[place] Latter Day: Question Answer Notes Latter Day 33 None Sexual Hx: Question Answer Notes Had sex in the last 12 months (vaginal, oral, or anal)? No Have you ever had an STD? No Drug and Alcohol Question Answer Notes Total Score: 0 Interpretation: No problems reported Alcohol Screening: Question Answer Notes Did you have a drink containing alcohol in the past year? Ye s Points 1 Interpretation Negative How often did you have six or more drinks on one occas ion in the past year? Never (0 points) How many drinks did you have on a typica l day when you were drinking in the past year? 1 or 2 (0 points) How often did you have a drink containing alcohol in t he past year? Monthly or less (1 point) BMI Care Goal Follow-Up Question Answer Notes Above Normal BMI Follow-Up Dietary management educatio n, guidance, and counseling Tobacco Use: Question Answer Notes Are you a: never smoker REASON FOR REFERRAL No Information VITAL SIGNS No information MEDICATIONS Medication SIG (Take, Route, Frequency, Duration) Notes Start Da te End Date Status Dulera 100-5 MCG/ACT 2 puffs Inhalation Twice a day PRN Not-Taking Enskyce 0.15-30 MG-MCG TAKE 1 TABLET BY MOUTH EVERY DAY for 84 Active Hylatopic Plus - as directed Externally twice daily to trunk and extremities Dec, Not-Taking hydrOXYzine HCl 25 MG 2 tablet as needed Orally before bedtime f or 30 days Nov, Active Venlafaxine HCl 75 MG 1 tablet with food Orally Once a day for 3 0 day(s) May, Active Enskyce 0.15-0.03 MG 1 tablet Orally Once a day for 90 day(s) di maria isabel 3 packs Active Clobetasol Propionate 0.05 % 1 application Externally Twice a day for 14 day(s) Feb, Not-Taking Clindamycin Phosphate 1 % 1 application Externally Twice a day f or 30 days Feb, Not-Taking Albuterol Sulfate HFA 108 (90 Base) MCG/ACT 2 puffs as needed Inhalation every 4 hrs PRN Active ALPRAZolam 0.25 MG 1 tablet Orally Twice a day as needed for severe anxiety (MDD2) for 30 days Apr, Not-Taking Atopaderm - as directed Externally twice daily for 30 days Dec, Not-Taking Singulair 10 MG 1 tablet in the evening Orally Once a day Not-Taking Oxybutynin Chloride ER 15 MG 1 tablet Orally Once a day for 90 d ay(s) Feb, Active EPINEPHrine 0.3 MG/0.3ML INJECT INTRAMUSCULARLY INTO THIGH NEEDED FOR ALLERGIC EMERGENCY Injection for 2 Active Stelara 90 MG/ML INJECT THE CONTENTS OF ONE P EN UNDER THE SKIN EVERY 8 WEEKS FOR MAINTENANCE START AFTER 8 WEEKS OF IV INDUCTION DOSE Subcutaneous Active PROCEDURES No Information RESULTS No Results REASON FOR VISIT Cancel Appointment Request MEDICAL (GENERAL) HISTORY Type Description Date Medical History Allergies Medical History Asthma allergy induced Medical History GISSELLE Medical History CHROHN'S Medical History ANXIETY Medical History Depression Surgical History TONSILLS AND ADENOIDS Surgical History TUBES IN EARS X3 Hospitalization History abdominal pain 10/16/18 Hospitalization History AND INFANT FOR UTI'S Goals Section No Information Health Concerns No Information MEDICAL EQUIPMENT No Information MENTAL STATUS No Information FUNCTIONAL STATUS No Information ASSESSMENTS No Information PLAN OF TREATMENT Medication Medication Name Sig Start Date Stop Date Enskyce 0.15-0.03 MG 1 tablet Orally Once a day for 90 day(s) Oxybutynin Chloride ER 15 MG 1 tablet Orally Once a day for 90 day(s) Feb, Venlafaxine HCl 75 MG 1 tablet with food Orally Once a day f or 30 day(s) May, hydrOXYzine HCl 25 MG 2 tablet as needed Orally before bedti me for 30 days Nov, Enskyce 0.15-30 MG-MCG TAKE 1 TABLET BY MOUTH EVERY DAY for 84 Next Appt Details Provider Name:Liza Freitas, 2021-09-01 10:00:00 AM, [id number] [facility], , [place], [address], Provider Name:Beau Vick, 2021-11-21 03:15:00 PM, [address], , [place], [address], Provider Name:Emily Hodges, 2022-02-13 07:15:00 AM, [address] [place] [address], , [place], [address], Insurance Providers Payer Name Payer Address Payer Phone Insured Name Patient Relati onship to Insured Coverage Start Date Coverage End Date BCBS EFE [employer] PPO [phone] [facility] [place] [id number] VANESSA MATOS
--- OUTSIDE RECORDS SUMMARY | 2021-10-17 16:24 | CCD ---
Author Author [facility] Organization [facility] Address Unknown Phone Unavailable Care Team Providers Care Receptionist Clerk Name Role Phone Liza Freitas Unavailable PROBLEMS Type Condition ICD9-CM Code ZON69-SN Code Onset Dates Condition S tatus W/U Status Risk SNOMED Code Notes Problem Moderate persistent asthma without complication J4 5.40 Active confirmed 866466430 Problem Obesity (BMI 30.0-34.9) E66.9 Active confirmed 935398885132345 Problem Nocturia R35.1 Active confirmed 363488255 Problem Generalized anxiety disorder F41.1 Active confirme d 55773898 Problem Crohn's disease without comp lication, unspecified gastrointestinal tract location K50.90 Active confirmed 19067538 Problem Seasonal allergic rhinitis, unspecified trigger J3 0.2 Active confirmed 587234112 Problem Intrinsic eczema L20.84 Active confirmed 240 33253 ALLERGIES Allergen (clinical drug ingredient) Drug/Non Drug Allergy do cumented on EMR Reaction Allergy Type Onset Date Status seasonal and environmental sneezing, watery, itchiness Non Drug Allergy Active ENCOUNTERS from 1997 to 2021-09-06 Encounter Location Date Provider Diagnosis [facility] [address] [facility] [phone] [place] [address] Aug, Liza Freitas Acute pain of right knee M25 .561 and Elevated BP without diagnosis of hypertension R03.0 IMMUNIZATIONS Vaccine Route Administration Date Status TDAP 0.5mL (Boostrix) IM Intramuscular Jun 26, 2019 Administe red Meningococcal 0.5mL Menveo Groups A,C,Y & W-135 IM Intramuscular Oct 31, 2017 Administered COVID-19 dose #2 given elsewhere Unspecified Unknown March 14, 2021 Administered COVID-19 dose #1 given elsewhere Unspecified Unknown Feb Administered Influenza 6mo & up Fluzone Unknown Sep [...] Education Language: Question Answer Notes Languages spoken: Guinean Tenriism: Question Answer Notes Tenriism 33 None Sexual Hx: Question Answer Notes [...] REASON FOR REFERRAL No Information VITAL SIGNS Weight 175.4 lbs Aug, Weight-kg 79.56 kg Aug, Height 59 in Aug, BMI 35.42 kg/m2 Aug, Heart Rate 95 /min Aug, Respiratory Rate 18 /min Aug, Temperature 98.6 degrees Fahrenheit Aug, Oximetry 98 Aug, Blood pressure systolic 142 mm Hg Aug, Blood pressure diastolic 83 mm Hg Aug, MEDICATIONS Medication SIG (Take, Route, Frequency, Duration) Notes Start Da te End Date Status Atopaderm - as directed Externally twice daily for 30 days Dec, Not-Taking Singulair 10 MG 1 tablet in the evening Orally Once a day Not-Taking Stelara 90 MG/ML INJECT THE CONTENTS OF ONE P EN UNDER THE SKIN EVERY 8 WEEKS FOR MAINTENANCE START AFTER 8 WEEKS OF IV INDUCTION DOSE Subcutaneous Active Clindamycin Phosphate 1 % 1 application Externally Twice a day f or 30 days Feb, Not-Taking ALPRAZolam 0.25 MG 1 tablet Orally Twice a day as needed for severe anxiety (MDD2) for 30 days Apr, Not-Taking Clobetasol Propionate 0.05 % 1 application Externally Twice a day for 14 day(s) Feb, Not-Taking Dulera 100-5 MCG/ACT 2 puffs Inhalation Twice a day PRN Not-Taking Enskyce 0.15-0.03 MG 1 tablet Orally Once a day for 90 day(s) di spense 3 packs Active Albuterol Sulfate HFA 108 (90 Base) MCG/ACT 2 puffs as needed Inhalation every 4 hrs PRN Active Hylatopic Plus - as directed Externally twice daily to trunk and extremities Dec, Not-Taking Oxybutynin Chloride ER 15 MG 1 tablet Orally Once a day for 90 d ay(s) Feb, Active Enskyce 0.15-30 MG-MCG TAKE 1 TABLET BY MOUTH EVERY DAY for 84 Not-Taking Venlafaxine HCl 75 MG 1 tablet with food Orally Once a day for 3 0 day(s) May, Active EPINEPHrine 0.3 MG/0.3ML INJECT INTRAMUSCULARLY INTO THIGH NEEDED FOR ALLERGIC EMERGENCY Injection for 2 Active hydrOXYzine HCl 25 MG 2 tablet as needed Orally before bedtime f or 90 days Nov, Active PROCEDURES No Information RESULTS Component Value Reference Range [facility] Knee, complete Reviewed date:09/02/2021 12:47:41 Interpretation:Normal Performing Lab:[facility],[address]], ,[place] [address] REASON FOR VISIT FOLLOW UP MEDICAL (GENERAL) HISTORY Type Description Date Medical [...] No Information FUNCTIONAL STATUS No Information ASSESSMENTS Encounter Date Diagnosis Assessment Notes Treatment Notes Treatm ent Clinical Notes Aug, Acute pain of right knee (ICD-10 - M25.561) Aug, Elevated BP without diagnosis of hypertension (I CD-10 - R03.0) BP noted to be above 140/90 today. Advised low-salt diet and exercise as tolerated. Will continue to monitor at subsequent visits. PLAN OF TREATMENT Treatment Notes Assessment Notes Clinical Notes Elevated BP without diagnosis of hypertension BP noted to be above 140/90 today. Advised low-salt diet and exercise as tolerated. Will continue to monitor at subsequent visits. Next Appt Details prn Reason:as needed Provider Name:Isaias Gardner, 03:00:00 PM, [address], , [place], [address], Provider Name:Beau Vick IN ACTIVE, 2021-11-21 03:15:00 PM, [address], , [place], [address], Provider Name:Emily Hodges, 2022-02-13 07:15:00 AM, [address] [place] [address], , [place], [address], Follow Up:prnas needed Insurance Providers Payer Name Payer Address Payer Phone Insured Name Patient Relati onship to Insured Coverage Start Date Coverage End Date BCBS [place] PPO [id number] [facility] [employer] [address] VANESSA MATOS
--- OUTSIDE RECORDS SUMMARY | 2021-10-17 16:24 | CCD ---
Author Author Rex Nguyen MD [facility] Organization Rex Nguyen MD [facility] Address [address] [address] Phone Care Team Providers Care Refund Specialist Name Role Phone Patrick GREEN, MAX, Rex Tavares Unavailable [phone] Maury GREEN, More PP [phone] Alycia GREEN, FAAP, Juan Diego Unavailable [phone] Reason for Referral No Reason for Referral Recorded Problems Includes: Active, inactive, and resolved Problems All Visits Onset Date - Time Resolved Date - Time Provider Co ndition Status Ptosis Myogenic 05/28/2017 - 12:00AM Rex pérez MD, FACS Inactive Refractive Error - Myopia Bilateral 06/03/2015 - 12:00AM Rex Nguyen MD, FACS Active Note: Unchanged Astigmatism - Regular 05/19/2014 - 12:00AM Rex Sam MD, FACS Active Note: Unchanged - of the rig ht eye 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 - 12:00AM Rex Fontaine MD, FACS Active Note: Unchanged Refractive Error - Hypermetropia 05/19/2014 - 12:00AM Rex Nguyen MD, FACS Inactive Note: Unchanged - of the lef t eye Refractive Error - Myopia 05/19/2014 - 12:00AM Rex Nguyen MD, FACS Inactive Note: Unchanged - of the rig ht eye Conjunctivitis Chronic Allergic 10/16/2013 - 12:00AM Rex Nguyen MD, FACS Active Note: Unchanged - of both ey es Ptosis of Right Upper Eyelid 10/16/2013 - 12:00AM Rex Nguyen MD, FACS Active Note: Unchanged - congenital Plan of Treatment Future Appointments Date Time Location Provider 1 Year Follow-Up 05/31/2022 9:15AM Rex Nguyen MD [facility] Rex Nguyen MD, FACS Assessments Includes: Assessments for all patient encounters Findings Encounter Date Chronic allergic conjunctivitis 1 Year Follow-Up with Rex Nguyen MD, FACS 06/01/2021 Congenital ptosis 1 Year Follow-Up with Rex wade MD, FACS 06/01/2021 Chronic allergic conjunctivitis 1 Year Follow-Up with Rex Nguyen MD, FACS 06/01/2020 Congenital ptosis 1 Year Follow-Up with Rex wade MD, FACS 06/01/2020 Chronic allergic conjunctivitis 1 Year Follow-Up with Rex Nguyen MD, FACS 05/28/2019 Myogenic ptosis 1 Year Follow-Up with Rex wade MD, FACS 05/28/2019 Chronic allergic conjunctivitis 1 Year Follow-Up with Rex Nguyen MD, FACS 05/28/2018 Myogenic ptosis 1 Year Follow-Up with Rex wade MD, FACS 05/28/2018 Chronic allergic conjunctivitis 1 Year Follow-Up with Rex Nguyen MD, FACS 05/28/2017 Myogenic ptosis 1 Year Follow-Up with Rex wade MD, FACS 05/28/2017 Chronic allergic conjunctivitis 1 Year Follow-Up with Rex Nguyen MD, FACS 05/25/2016 Congenital ptosis 1 Year Follow-Up with Rex wade MD, FACS 05/25/2016 Bilateral myopia 1 Year Follow-Up with Rex wade MD, FACS 05/18/2015 Chronic allergic conjunctivitis both eyes 1 Year Foll ow-Up with Rex Fontaine MD, FACS 05/18/2015 Congenital ptosis right eye 1 Year Follow-Up with Rex Nguyen MD, FACS 05/18/2015 Ptosis of the right upper eyelid 1 Year Follow-Up with Rex Nguyen MD, FACS 05/18/2015 Chronic allergic conjunctivitis 6 Month Follow-Up with Rex Nguyen MD, FACS 05/19/2014 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 6 Month F ollow-Up with Rxe Nguyen MD, FACS 05/19/2014 Hypermetropia of the left eye 6 Month Follow-Up with Rex Nguyen MD, FACS 05/19/2014 Myopia of the right eye 6 Month Follow-Up with Rex Younger MD, FACS 05/19/2014 Regular astigmatism of the right eye 6 Month Follow-U p with Rex Nguyen MD, [facility] 05/19/2014 Chronic allergic conjunctivitis of both eyes 1 Year F ollow-Up with Rex Nguyen MD, [facility] 10/16/2013 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 1 Year Follow-Up with Rex Nguyen MD, [facility] 10/16/2013 Instructions Instructions not supported for this document typeNo Instructions Recorded Medical Equipment - Implanted Devices Includes: Current and historical DevicesNo Medical Equipment Recorded Medications Includes: Current and historical Medications Current Medications (continue as prescribed) PARoxetine HCl 10MG Oral Tablet 05/28/2018 Provider : Diagnosis: HydrOXYzine HCl 25MG Oral Tablet 05/28/2018 Provide r: Diagnosis: every 8 hours Dulera 100-5 MCG/ACT Aerosol 05/25/2016 Provider: Diagnosis: ZyrTEC Allergy 10 MG OR CAPS 10/16/2013 Provider: Diagnosis: Singulair 10 MG OR TABS 10/16/2013 Provider: Diagnosis: Ventolin HFA 108 (90 Base) MCG/ACT IN AERS 10/16/2013 Provider: Diagnosis: Allergy Shots SC INJ 10/16/2013 Provider: Diagnosis: Once every 3 weeks Past Medications on file Qvar 40 MCG/ACT IN AERS 05/19/2014 - 05/18/2015 Provider: Diagnosis: Lastacaft 0.25% OP SOLN 05/19/2014 - 05/18/2015 Provider: Rex Nguyen MD FACS Diagnosis: Chr Allrg Conjunctiv NEC Lastacaft 0.25% OP SOLN 10/16/2013 - 05/19/2014 Provider: Rex Nguyen MD FACS Diagnosis: Chr Allrg Conjunctiv NEC patient has savings card Medications Administered Includes: Administered Medications in patient's chartNo Administered Medications Recorded Vital Signs Includes: Vital Signs from 09/10/2020 through 09/10/2021No Vital Signs Recorded For Specified Dates Results Includes: Results from 09/10/2020 through 09/10/2021No Results Recorded For Specified Dates History of Present Illness History of Present Illness not supported for this document typeNo History of Present Illness Recorded Social History Description Last Updated Tobacco non-user 06/01/2021 Never smoked 06/01/2020 No consumption of alcohol 06/01/2020 No tobacco use 06/01/2020 Not using drugs 06/01/2020 Smoking status : Never smoker 06/01/2020 Never drank alcohol 10/16/2013 Procedures and Surgical History Surgical History Last Updated Surgical / procedural history : Bilateral Tubes Ears, T & A, Tonsillectomy 10/16/2013 Medical History Includes: Medical History in patient's chart Description Last Updated Not currently wearing eyeglasses 06/01/2020 Reported medical history : Seasonal Allergies, Crohn's Disease 06/01/2020 History of asthma 10/16/2013 No recent change in medical history 10/16/2013 Family History Includes: Family History in patient's chart Description Last Updated Paternal history of glaucoma 06/01/2020 Family medical history was unknown 05/18/2015 Review of Systems Review of Systems not supported for this document typeNo Review of Systems Recorded Mental Status Mental Status not supported for this document type Description Oriented to time, place, and person Functional Status Functional Status not supported for this document typeNo Functional Status Recorded Physical Exam Physical Exam not supported for this document typeNo Physical Exam Recorded Immunizations Includes: Immunizations in patient's chartNo Immunizations Recorded Allergies Includes: Active, inactive, and resolved AllergiesNo Known Allergies Encounters Includes: Encounters from 09/10/2020 through 09/10/2021 Encounter Provider Location Date Check-In Time Check-Out Time D iagnosis 1 Year Follow-Up Rex Nguyen MD, FACS Rex Garcia [facility] 06/01/2021 11:41AM 12:10PM Congenital Ptosis, C onjunctivitis Chronic Allergic Insurance Includes: Active Insurance Policies Plan Name Member ID Group # Subscriber Relationship Effective Da lin 1 - [employer] BC/BS [id number] Cristina Morales Child Advance Directives Includes: Current Advance DirectivesNo Advance Directives Recorded Health Concerns Includes: Active Health ConcernsNo Active Health Concerns Recorded Goals Includes: Active GoalsNo Active Goals Recorded Interventions Includes: Interventions for active GoalsNo Interventions Recorded Evaluations & Outcomes Includes: Evaluations & Outcomes for active GoalsNo Outcomes Recorded
--- OUTSIDE RECORDS SUMMARY | 2021-10-17 16:24 | CCD ---
Author Author [facility] Organization [facility] Address Unknown Phone Unavailable Care Team Providers Care Head Banquet Waitress Name Role Phone Zena, Liza Unavailable PROBLEMS Type Condition ICD9-CM Code [id number] Code Onset Dates Condition S tatus W/U Status Risk SNOMED Code Notes Problem Moderate persistent asthma without complication J4 5.40 Active confirmed 463507529 Problem Obesity (BMI 30.0-34.9) E66.9 Active confirmed 862098150271234 Problem Nocturia R35.1 Active confirmed 948404097 Problem Generalized anxiety disorder F41.1 Active confirme d 84308517 Problem Crohn's disease without comp lication, unspecified gastrointestinal tract location K50.90 Active confirmed 72942574 Problem Seasonal allergic rhinitis, unspecified trigger J3 0.2 Active confirmed 690092174 Problem Intrinsic eczema L20.84 Active confirmed 240 99629 ALLERGIES Allergen (clinical drug ingredient) Drug/Non Drug Allergy do cumented on EMR Reaction Allergy Type Onset Date Status seasonal and environmental sneezing, watery, itchiness Non Drug Allergy Active ENCOUNTERS from 1997 to 2021-08-01 Encounter Location Date Provider Diagnosis [facility] [address] [facility] [phone] [place] [address] 18 Jul, 2021 Liza Freitas Generalized anxiety disorder F41.1 IMMUNIZATIONS Vaccine Route Administration Date Status TDAP [...] Education Language: Question Answer Notes Languages spoken: Georgian Mandaeism: Question Answer Notes Mandaeism 33 None Sexual Hx: Question Answer Notes [...] Orally Once a day for 90 day(s) leida nicolas 3 packs Active Clobetasol Propionate 0.05 % [...] Information RESULTS No Results REASON FOR VISIT New Refill Request MEDICAL (GENERAL) HISTORY Type Description Date [...] Notes Treatment Notes Treatm ent Clinical Notes Jul, Generalized anxiety disorder (ICD-10 - F41.1) PLAN OF TREATMENT Medication Medication Name Sig Start Date Stop Date Enskyce 0.15-0.03 MG 1 tablet Orally Once a day for 90 day(s) Oxybutynin Chloride ER 15 MG 1 tablet Orally Once a day for 90 day(s) Feb, Venlafaxine HCl 75 MG 1 tablet with food Orally Once a day f or 30 day(s) 27 Wis[place], 2021 hydrOXYzine HCl 25 MG 2 tablet as needed Orally before bedti me for 30 days Nov, Enskyce 0.15-30 MG-MCG TAKE 1 TABLET BY MOUTH EVERY DAY for 84 Next Appt Details Provider Name:Liza Freitas, 2021-09-01 10:00:00 AM, [address] [facility], , [place], [address], Provider Name:Emily Hodges, 2021-09-01 11:15:00 AM, [address] [place] [address], , [place], [address], Provider Name:Beau Vick, 2021-11-21 03:15:00 PM, [address], , [place], [address], Insurance Providers Payer Name Payer Address Payer Phone Insured Name Patient Relati onship to Insured Coverage Start Date Coverage End Date BCBS [place] [employer] PPO [phone] [id number] [facility] [employer] [address] VANESSA MATOS
--- OUTSIDE RECORDS SUMMARY | 2021-10-17 16:24 | CCD ---
Author Author Rex Nguyen MD [facility] Organization Rex Nguyen MD [facility] Address [address] [address] Phone Care Team Providers Care Commis Chef Name Role Phone Patrick GREEN, MAX, Rex Tavares Unavailable [phone] Maury GREEN, More PP [phone] Alycia GREEN, FAAP, Juan Diego Unavailable [phone] Reason for Referral No Reason for Referral [...] Year Follow-Up 05/31/2022 9:15AM Rex Nguyen MD [facility] Rex Nguyen MD, FACS Assessments Includes: Assessments [...] upper eyelid 6 Month F ollow-Up with Rex Nguyen MD, FACS 05/19/2014 Hypermetropia of the left eye 6 Month Follow-Up with Rex Nguyen MD, FACS 05/19/2014 Myopia of the right eye 6 Month Follow-Up with Rex Younger MD, FACS 05/19/2014 Regular astigmatism of the right eye 6 Month Follow-U p with Rex Nguyen MD, [facility] 05/19/2014 Chronic allergic conjunctivitis of both eyes 1 Year F ollow-Up with Rex Nguyen MD, [facility] 10/16/2013 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 1 Year Follow-Up with Rex Nguyen MD, [facility] 10/16/2013 Instructions Instructions not supported for [...] Recorded Vital Signs Includes: Vital Signs from 10/13/2020 through 10/13/2021No Vital Signs Recorded For Specified Dates Results Includes: Results from 10/13/2020 through 10/13/2021No Results Recorded For Specified Dates History of Present Illness History of Present Illness not supported for this document typeNo History of Present Illness Recorded Social History Description Last Updated Tobacco non-user 06/01/2021 Never smoked 05/28/2019 No consumption of alcohol 05/28/2019 No tobacco use 05/28/2019 Not using drugs 05/28/2019 Smoking status : Never smoker 05/28/2019 Never drank alcohol 10/16/2013 Procedures and Surgical History Surgical History Last Updated Surgical / procedural history : Bilateral Tubes Ears, T & A, Tonsillectomy 10/16/2013 Medical History Includes: Medical History in patient's chart Description Last Updated Recent change in medical history Crohn's Disease 05/12 Reported medical history : Seasonal Allergies, Crohn's Disease 05/28/2019 Not currently wearing eyeglasses 05/28/2019 History of asthma 10/16/2013 Family History Includes: Family History in patient's chart Description Last Updated Paternal history of glaucoma 05/28/2019 Family medical history was unknown 05/18/2015 Review [...] AllergiesNo Known Allergies Encounters Includes: Encounters from 10/13/2020 through 10/13/2021 Encounter Provider Location Date Check-In Time Check-Out Time D iagnosis 1 Year Follow-Up Rex Nguyen MD, FACS Rex Garcia [facility] 06/01/2021 11:41AM 12:10PM Congenital Ptosis, C onjunctivitis Chronic Allergic Insurance Includes: Active Insurance Policies Plan Name Member ID Group # Subscriber Relationship Effective Da lin 1 - [employer] BC/BS [id number] Cristina Morales Child Advance Directives Includes: Current Advance DirectivesNo Advance Directives Recorded Health Concerns Includes: Active Health ConcernsNo Active Health Concerns Recorded Goals Includes: Active GoalsNo Active Goals Recorded Interventions Includes: Interventions for active GoalsNo Interventions Recorded Evaluations & Outcomes Includes: Evaluations & Outcomes for active GoalsNo Outcomes Recorded
--- OUTSIDE RECORDS SUMMARY | 2021-10-17 16:24 | CCD ---
Author Author [facility] Organization [facility] Address Unknown Phone Unavailable Care Team Providers Care Rig Hand Name Role Phone KendraIsaias ramos Unavailable PROBLEMS Type Condition ICD9-CM Code HIB26-HG Code Onset Dates Condition S tatus W/U Status Risk SNOMED Code Notes Problem Moderate persistent asthma without complication J4 5.40 Active confirmed 375013028 Problem Obesity (BMI 30.0-34.9) E66.9 Active confirmed 441178463208772 Problem Nocturia R35.1 Active confirmed 427125978 Problem Generalized anxiety disorder F41.1 Active confirme d 85775596 Problem Crohn's disease without comp lication, unspecified gastrointestinal tract location K50.90 Active confirmed 16861987 Problem Seasonal allergic rhinitis, unspecified trigger J3 0.2 Active confirmed 121665226 Problem Intrinsic eczema L20.84 Active confirmed 240 36449 ALLERGIES Allergen (clinical drug ingredient) Drug/Non Drug Allergy do cumented on EMR Reaction Allergy Type Onset Date Status seasonal and environmental sneezing, watery, itchiness Non Drug Allergy Active ENCOUNTERS from 1997 to 2021-10-14 Encounter Location Date Provider Diagnosis [facility] [address] [phone] [place] [address] Oct, Isaias Gardner IMMUNIZATIONS Vaccine Route Administration Date Status COVID-19 [...] Education Language: Question Answer Notes Languages spoken: Romanian Temple: Question Answer Notes Temple 33 None Sexual Hx: Question Answer Notes [...] Notes Start Da te End Date Status hydrOXYzine HCl 25 MG 2 tablet as needed Orally before bedtime f or 90 days Nov, Active Singulair 10 MG 1 tablet in the evening Orally Once a day Not-Taking Stelara 90 MG/ML INJECT THE CONTENTS OF ONE P EN UNDER THE SKIN EVERY 8 WEEKS FOR MAINTENANCE START AFTER 8 WEEKS OF IV INDUCTION DOSE Subcutaneous Active Venlafaxine HCl 75 MG 1 tablet with food Orally Once a day for 3 0 day(s) May, Active Oxybutynin Chloride ER 15 MG 1 tablet Orally Once a day for 90 d ay(s) 14 Feb, 2021 Active Clobetasol Propionate 0.05 % 1 application Externally Twice a day for 14 day(s) Feb, Not-Taking Atopaderm - as directed Externally twice daily for 30 days Dec, Not-Taking Clindamycin Phosphate 1 % 1 application Externally Twice a day f or 30 days Feb, Not-Taking ALPRAZolam 0.25 MG 1 tablet Orally Twice a day as needed for severe anxiety (MDD2) for 30 days Apr, Not-Taking Albuterol Sulfate HFA 108 (90 Base) MCG/ACT 2 puffs as needed Inhalation every 4 hrs PRN Active Mupirocin 2 % 1 application to left thumb nail Externally Twice a day for 10 days Sep, Active Dulera 100-5 MCG/ACT 2 puffs Inhalation Twice a day PRN Not-Taking Enskyce 0.15-0.03 MG 1 tablet Orally Once a day for 90 day(s) leida nicolas 3 packs Active EPINEPHrine 0.3 MG/0.3ML INJECT INTRAMUSCULARLY INTO THIGH NEEDED FOR ALLERGIC EMERGENCY Injection for 2 Active Hylatopic Plus - as directed Externally twice daily to trunk and extremities Dec, Not-Taking Enskyce 0.15-30 MG-MCG TAKE 1 TABLET BY MOUTH EVERY DAY for 84 Not-Taking PROCEDURES No Information RESULTS No Results REASON [...] Medication Name Sig Start Date Stop Date Mupirocin 2 % 1 application to left thumb nail Externally Twice a day for 10 days Sep, Next Appt Details Provider Name:Beau Longory IN ACTIVE, 2021-11-21 03:15:00 PM, [address], , [place], [address], Provider Name:Emily Hodges, 2022-02-13 07:15:00 AM, [address] [facility], , [place], [place], [facility], Insurance Providers Payer Name Payer Address Payer Phone Insured Name Patient Relati onship to Insured Coverage Start Date Coverage End Date BCBS EFE MERCADO O [id number] [facility] [place] [id number] VANESSA MATOS
--- OUTSIDE RECORDS SUMMARY | 2021-10-17 16:24 | CCD ---
Author Author [facility] Organization [facility] Address Unknown Phone Unavailable Care Team Providers Care Data Warehouse Architect Name Role Phone Zena, Liza Unavailable PROBLEMS Type Condition ICD9-CM Code [id number] Code Onset Dates Condition S tatus W/U Status Risk SNOMED Code Notes Problem Moderate persistent asthma without complication J4 5.40 Active confirmed 852021015 Problem Obesity (BMI 30.0-34.9) E66.9 Active confirmed 131350897345648 Problem Nocturia R35.1 Active confirmed 988581175 Problem Generalized anxiety disorder F41.1 Active confirme d 47847088 Problem Crohn's disease without comp lication, unspecified gastrointestinal tract location K50.90 Active confirmed 28685877 Problem Seasonal allergic rhinitis, unspecified trigger J3 0.2 Active confirmed 286866241 Problem Intrinsic eczema L20.84 Active confirmed 240 27550 ALLERGIES Allergen (clinical drug ingredient) Drug/Non Drug Allergy do cumented on EMR Reaction Allergy Type Onset Date Status seasonal and environmental sneezing, watery, itchiness Non Drug Allergy Active ENCOUNTERS from 1997 to 2021-08-22 Encounter Location Date Provider Diagnosis [facility] [address] [facility] [phone] [place] [address] Aug, Liza Freitas Generalized anxiety disorder F41.1 IMMUNIZATIONS Vaccine Route Administration Date Status COVID-19 [...] Education Language: Question Answer Notes Languages spoken: Urdu Temple: Question Answer Notes Temple 33 None [...] BY MOUTH EVERY DAY for 84 Active Albuterol Sulfate HFA 108 (90 Base) MCG/ACT 2 puffs as needed Inhalation every 4 hrs PRN Active Venlafaxine HCl 75 MG 1 tablet with food Orally Once a day for 3 0 day(s) May, Active Hylatopic Plus - as directed Externally twice daily to trunk and extremities Dec, Not-Taking Enskyce 0.15-0.03 MG 1 tablet Orally Once a day for 90 day(s) di gerdadenilson 3 packs Active Clobetasol Propionate 0.05 % 1 application Externally Twice a day for 14 day(s) Feb, Not-Taking Clindamycin Phosphate 1 % 1 application Externally Twice a day f or 30 days Feb, Not-Taking EPINEPHrine 0.3 MG/0.3ML INJECT INTRAMUSCULARLY INTO THIGH NEEDED FOR ALLERGIC EMERGENCY Injection for 2 Active ALPRAZolam 0.25 MG 1 tablet Orally Twice a day as needed for severe anxiety (MDD2) for 30 days Apr, Not-Taking Atopaderm - as directed Externally twice daily for 30 days Dec, Not-Taking Singulair 10 MG 1 tablet in the evening Orally Once a day Not-Taking Oxybutynin Chloride ER 15 MG 1 tablet Orally Once a day for 90 d ay(s) Feb, Active hydrOXYzine HCl 25 MG 2 tablet as needed Orally before bedtime f or 90 days Nov, Active Stelara 90 MG/ML INJECT THE CONTENTS OF ONE P EN UNDER THE SKIN EVERY 8 WEEKS FOR MAINTENANCE START AFTER 8 WEEKS OF IV INDUCTION DOSE Subcutaneous Active PROCEDURES No Information RESULTS No Results REASON FOR VISIT Hydroxyzine refill MEDICAL (GENERAL) HISTORY Type Description Date Medical [...] Treatment Notes Treatm ent Clinical Notes Aug, Generalized anxiety disorder (ICD-10 - F41.1) PLAN OF TREATMENT Medication Medication Name Sig Start Date Stop Date Enskyce 0.15-0.03 MG 1 tablet Orally Once a day for 90 day(s) Oxybutynin Chloride ER 15 MG 1 tablet Orally Once a day for 90 day(s) Feb, hydrOXYzine HCl 25 MG 2 tablet as needed Orally before bedti me for 90 days Nov, Venlafaxine HCl 75 MG 1 tablet with food Orally Once a day f or 30 day(s) May, Enskyce 0.15-30 MG-MCG TAKE 1 TABLET BY MOUTH EVERY DAY for 84 Next Appt Details Provider Name:Liza Freitas, 2021-09-01 10:00:00 AM, [address] [facility], , [place], [address], Provider Name:Beau Vick, 2021-11-21 03:15:00 PM, [address] , , [place], [address], Provider Name:Emily Hodges, 2022-02-13 07:15:00 AM, [address] [place] [address], , [place], [address], Insurance Providers Payer Name Payer Address Payer Phone Insured Name Patient Relati onship to Insured Coverage Start Date Coverage End Date BCBS EFE MERCADO PPO [phone] [facility] [place] [address] VANESSA MATOS
--- OUTSIDE RECORDS SUMMARY | 2021-10-17 16:24 | CCD | Continuity of Care Document ---
Author Author Aimee CASTILLO D.O. Organization Unknown Address [address] [place] [address], [address] [place] [address] Phone [phone] Care Team Providers Care Ground Crewman Aircraft Support Name Role Phone More Hinton MD AUT [phone] Problems Active Problems Provider Date Chronic allergic conjunctivitis Vladimir Gonzalez Onset: 0 03/10/2011 Allergic rhinitis Vladimir Gonzalez Onset: 03/10/2011 Allergic rhinitis due to pollen Vladimir Gonzalez Onset: 0 03/10/2011 Intrinsic asthma without status asthmaticus Vladimir Gonzalez Onset: 03/10/2011 Allergic asthma without status asthmaticus Anila Soria M.S., PA-C Onset: 04/30/2014 Exacerbation of asthma Anila Soria M.S., PA-C Onset: 03/08/2015 Cough Anila Soria M.S., PA-C Onset: Allergic rhinitis due to animals Frandy Castillo DO Onset : 06/06/2017 Uncomplicated moderate persistent asthma Frandy Castillo DO Onset: 06/06/2017 Social History Type Date Description Comments Sex Unknown Tobacco Use Reviewed: 08/08/19 Patient has never smoked Tobacco Use Reviewed: 05/26/21 Patient has never smoked Smoking Status Reviewed: 05/26/21 Patient has never smoked Allergies, Adverse Reactions, Alerts Description No Known Drug Allergies Medications Active Medications SIG Qnty Indications Ordering Provide r Date Ventolin HFA 108(90Base) mcg/Act A erosol inhale 2 puffs by mouth every 4-6 hours as needed 36gm J45.20 Frandy Castillo DO 04/04/2013 Epipen 2-Valentín 0.3mg/0 .3ML Solution Auto-Inject inject into thigh as needed for allergic emergency 2units Frandy Castillo, DO Stelara 90mg/ml Soln Prefill Syringe Unknown Hydroxyzine HCL 25mg Tablets Take Two Tablets By Mouth Every Day as Needed Before Bedtime Unknown Albuterol Sulfate HFA 108(90Base) mcg/Act Aerosol inhale 2 puffs by mouth every 4 to 6 hours as needed 8.500gm Frandy Castillo, DO Oxybutynin Chloride ER 15mg Tablets ER 24HR Unknown Venlafaxine HCL 37.5mg Tablets Take One Tablet By Mouth Every Day With Food Unknown Alprazolam 0.25mg Tablets More Mendiola MD Clindamycin Phosphate 1% Lotion Apply To Affected Area S Two Times A Day For 30 Days Unk nown Clobetasol Propionate 0.05% Ointme nt Apply To Affected Area S Two Times A Day For 14 Days Unknown Medications Administered in Office Medication SIG Qnty Indications Ordering Provider Date Covid-19 vaccine, Unspecified Inj ection Unknown 03/14/2021 Covid-19 vaccine, Unspecified Inj ection Unknown 02/11/2021 Immunizations CPT Code Status Date Vaccine Lot # U-[id number] Given 09/02/2020 Influenza,Unspecified Vital Signs Date Vital Result Comment 05/26/2021 10:49am Respiratory Rate 16 /min Heart Rate 130 /min BP Systolic 110 mmHg left arm BP Diastolic 78 mmHg left arm Height 59.5 inches 4'11.50" Weight 165.00 lb Body Temperature 98.8 F O2 % BldC Oximetry 98 % BMI (Body Mass Index) 32.8 kg/m2 01/20/2021 9:57am Respiratory Rate 16 /min Heart Rate 97 /min BP Systolic 106 mmHg left arm BP Diastolic 70 mmHg left arm Height 59.5 inches 4'11.50" Weight 164.25 lb Body Temperature 97.9 F O2 % BldC Oximetry 97 % BMI (Body Mass Index) 32.6 kg/m2 Results Description No Information Available Procedures Date Code Description Status 08/10/2021 83844 Allergy Mixed Antigens Completed 05/26/2021 25697 Office Visit - Level 4 Completed Medical Devices Description No Information Available Encounters Description No Information Available Assessments Date Code Description Provider 08/10/2021 J30.81 Allergic rhinitis due to animal (cat) (dog) hair and dander Allergy Injections 08/10/2021 J30.89 Other allergic rhinitis Allergy Injections 08/10/2021 J30.1 Allergic rhinitis due to pollen Allergy Injections 08/10/2021 H10.45 Other chronic allergic conjuncti vitis Allergy Injections 05/26/2021 J30.1 Allergic rhinitis due to pollen Frandy Castillo, DO 05/26/2021 J30.89 Other allergic rhinitis Frandy Castillo, 05/26/2021 J30.81 Allergic rhinitis due to animal (cat) (dog) hair and dander Frandy Castillo, 05/26/2021 H10.45 Other chronic allergic conjuncti vitis Frandy Castillo, DO 05/26/2021 J45.20 Mild intermittent asthma, uncomp licated Frandy Castillo DO Plan of Treatment Future Appointment(s):* 09/22/2021 9:45 am - Frandy Castillo DO at [place] [facility] * 09/21/2021 10:00 am - [facility] [place] [facility] [place] 05/26/2021 - Frandy Castillo DO* J30.1 Allergic rhinitis due to pollen* Comments:* To continue the allergy injections on 2 week schedule. * Follow up:* recheck in september PFT at that visit injections q 2 * J30.89 Other allergic rhinitis * J30.81 Allergic rhinitis due to animal (cat) (dog) hair and dander * H10.45 Other chronic allergic conjunctivitis * J45.20 Mild intermittent asthma, uncomplicated Functional Status Description No Information Available Mental Status Description No Information Available Referrals Description No Information Available
--- OUTSIDE RECORDS SUMMARY | 2021-10-17 16:24 | CCD ---
Author Author [facility] Organization [facility] Address Unknown Phone Unavailable Care Team Providers Care Geological Scout Name Role Phone Zena, Liza Unavailable PROBLEMS Type Condition ICD9-CM Code [id number] Code Onset Dates Condition S tatus W/U Status Risk SNOMED Code Notes Problem Moderate persistent asthma without complication J4 5.40 Active confirmed 750645404 Problem Obesity (BMI 30.0-34.9) E66.9 Active confirmed 154679082488928 Problem Nocturia R35.1 Active confirmed 779281270 Problem Generalized anxiety disorder F41.1 Active confirme d 38762484 Problem Crohn's disease without comp lication, unspecified gastrointestinal tract location K50.90 Active confirmed 33680952 Problem Seasonal allergic rhinitis, unspecified trigger J3 0.2 Active confirmed 211272697 Problem Intrinsic eczema L20.84 Active confirmed 240 57558 ALLERGIES Allergen (clinical drug ingredient) Drug/Non Drug Allergy do cumented on EMR Reaction Allergy Type Onset Date Status seasonal and environmental sneezing, watery, itchiness Non Drug Allergy Active ENCOUNTERS from 1997 to 2021-08-25 Encounter Location Date Provider Diagnosis [facility] [address] [facility] [phone] [place] [address] Aug, Liza Freitas Generalized anxiety disorder F41.1 [...] Education Language: Question Answer Notes Languages spoken: Pashto Muslim: Question Answer Notes Muslim 33 None Sexual Hx: Question Answer Notes [...] BY MOUTH EVERY DAY for 84 Active EPINEPHrine 0.3 MG/0.3ML INJECT INTRAMUSCULARLY INTO THIGH NEEDED FOR ALLERGIC EMERGENCY Injection for 2 Active Hylatopic Plus - as directed Externally twice daily to trunk and extremities Dec, Not-Taking Albuterol Sulfate HFA 108 (90 Base) MCG/ACT 2 puffs as needed Inhalation every 4 hrs PRN Active Enskyce 0.15-0.03 MG 1 tablet Orally Once a day for 90 day(s) di maria isabel 3 packs Active Clobetasol Propionate 0.05 % 1 application Externally Twice a day for 14 day(s) Feb, Not-Taking Clindamycin Phosphate 1 % 1 application Externally Twice a day f or 30 days Feb, Not-Taking hydrOXYzine HCl 25 MG 2 tablet as needed Orally before bedtime f or 90 days Nov, Active ALPRAZolam 0.25 MG 1 tablet Orally Twice a day as needed for severe anxiety (MDD2) for 30 days Apr, Not-Taking Atopaderm - as directed Externally twice daily for 30 days Dec, Not-Taking Singulair 10 MG 1 tablet in the evening Orally Once a day Not-Taking Oxybutynin Chloride ER 15 MG 1 tablet Orally Once a day for 90 d ay(s) Feb, Active Venlafaxine HCl 75 MG 1 tablet with food Orally Once a day for 3 0 day(s) May, Active Stelara 90 MG/ML INJECT THE CONTENTS [...] before bedti me for 90 days Nov, Enskyce 0.15-30 MG-MCG TAKE 1 TABLET BY MOUTH EVERY DAY for 84 Next Appt Details Provider Name:Liza Freitas, 2021-09-01 10:00:00 AM, [address] [facility], , [place], [address], Provider Name:Beau Vick, 2021-11-21 03:15:00 PM, [address] , , [place], [address], Provider Name:Emily Hodges, 2022-02-13 07:15:00 AM, [address] [place] [address], , [place], [address], Insurance Providers Payer Name Payer Address Payer Phone Insured Name Patient Relati onship to Insured Coverage Start Date Coverage End Date BCBS UTIBRIDGETTE MERCADO PPO [phone] [id number] [facility] [email or web address] [id number] VANESSA MATOS
--- OUTSIDE RECORDS SUMMARY | 2021-10-17 16:24 | CCD ---
Author Author [facility] Organization [facility] Address Unknown Phone Unavailable Care Team Providers Care Supervisor Shipping Room Name Role Phone Carroll, Emily Unavailable PROBLEMS Type Condition ICD9-CM Code [id number] Code Onset Dates Condition S tatus W/U Status Risk SNOMED Code Notes Problem Moderate persistent asthma without complication J4 5.40 Active confirmed 990624204 Problem Obesity (BMI 30.0-34.9) E66.9 Active confirmed 478838524790784 Problem Nocturia R35.1 Active confirmed 488879690 Problem Generalized anxiety disorder F41.1 Active confirme d 83549661 Problem Crohn's disease without comp lication, unspecified gastrointestinal tract location K50.90 Active confirmed 90317006 Problem Seasonal allergic rhinitis, unspecified trigger J3 0.2 Active confirmed 842509266 Problem Intrinsic eczema L20.84 Active confirmed 240 63999 ALLERGIES Allergen (clinical drug ingredient) Drug/Non Drug Allergy do cumented on EMR Reaction Allergy Type Onset Date Status seasonal and environmental sneezing, watery, itchiness Non Drug Allergy Active ENCOUNTERS from 1997 to 2021-08-16 Encounter Location Date Provider Diagnosis [facility] Dermatology [address] [place] [address] [place] [address] Aug, Emily Hodges IMMUNIZATIONS Vaccine Route Administration [...] Education Language: Question Answer Notes Languages spoken: Marshallese Evangelical: Question Answer Notes Evangelical 33 None Sexual Hx: Question Answer Notes [...] Information RESULTS No Results REASON FOR VISIT Reschedule Appointment Request MEDICAL (GENERAL) HISTORY Type Description Date Medical History Allergies Medical History Asthma allergy induced Medical History GISSELLE Medical History CHROHN'S Medical History ANXIETY Medical History Depression Surgical History TONSILLS AND ADENOIDS Surgical History TUBES IN EARS X3 Hospitalization History abdominal pain 10/16/18 Hospitalization History AND FOR UTI'S Goals Section No Information Health [...] Details Provider Name:Liza Freitas, 2021-09-01 10:00:00 AM, [address] [facility], , [place], [address], Provider Name:Beau Vick, 2021-11-21 03:15:00 PM, [address] [facility], , [place], [address], Provider Name:Emily Hodges, 2022-02-13 07:15:00 AM, [address] [place] [address], , [place], [address], Insurance Providers Payer Name Payer Address Payer Phone Insured Name Patient Relati onship to Insured Coverage Start Date Coverage End Date BCBS UTIBRIDGETTE MERCADO PPO [phone] [facility] [place] [address] VANESSA MATOS
--- OUTSIDE RECORDS SUMMARY | 2021-10-17 16:24 | CCD ---
Author Author [facility] Organization [facility] Address Unknown Phone Unavailable Care Team Providers Care Injection Wax Molder Name Role Phone Emily Hodges Unavailable PROBLEMS ALLERGIES ENCOUNTERS from 1997 to 2021-09-28 IMMUNIZATIONS SOCIAL HISTORY REASON FOR REFERRAL No Information VITAL SIGNS MEDICATIONS PROCEDURES No Information RESULTS No Results REASON FOR VISIT MEDICAL (GENERAL) HISTORY Goals Section Health Concerns MEDICAL EQUIPMENT No Information MENTAL STATUS FUNCTIONAL STATUS ASSESSMENTS PLAN OF TREATMENT Insurance Providers
--- OUTSIDE RECORDS SUMMARY | 2021-10-17 16:24 | CCD ---
Author Author [facility] Organization [facility] Address Unknown Phone Unavailable Care Team Providers Care Staff Toxicologist Name Role Phone KendraIsaias ramos Unavailable PROBLEMS Type Condition ICD9-CM Code [id number] Code Onset Dates Condition S tatus W/U Status Risk SNOMED Code Notes Problem Moderate persistent asthma without complication J4 5.40 Active confirmed 501865426 Problem Obesity (BMI 30.0-34.9) E66.9 Active confirmed 588711643041156 Problem Nocturia R35.1 Active confirmed 899710286 Problem Generalized anxiety disorder F41.1 Active confirme d 02437835 Problem Crohn's disease without comp lication, unspecified gastrointestinal tract location K50.90 Active confirmed 32403347 Problem Seasonal allergic rhinitis, unspecified trigger J3 0.2 Active confirmed 759675777 Problem Intrinsic eczema L20.84 Active confirmed 240 16638 ALLERGIES Allergen (clinical drug ingredient) Drug/Non Drug Allergy do cumented on EMR Reaction Allergy Type Onset Date Status seasonal and environmental sneezing, watery, itchiness Non Drug Allergy Active ENCOUNTERS from 1997 to 2021-10-14 Encounter Location Date Provider Diagnosis [facility] Urology [address] [phone] [place] [address] Oct, Isaias Gardner IMMUNIZATIONS Vaccine Route Administration [...] Education Language: Question Answer Notes Languages spoken: Luxembourger Confucianist: Question Answer Notes Confucianist 33 None Sexual Hx: Question Answer Notes [...] Name:Beau Longory IN ACTIVE, 2021-11-21 03:15:00 PM, [address], , [place], [address], Provider Name:Emily Hodges, 2022-02-13 07:15:00 AM, [address] [facility], , [place], [place], [facility], Insurance Providers Payer Name Payer Address Payer Phone Insured Name Patient Relati onship to Insured Coverage Start Date Coverage End Date BCBS EFE MERCADO O [id number] [facility] [place] [address] VANESSA MATOS
--- OUTSIDE RECORDS SUMMARY | 2021-10-17 16:25 | CCD ---
Author Author [facility] Organization [facility] Address Unknown Phone Unavailable Care Team Providers Care Customer Support Professional Name Role Phone Kathryn Fontaine, Kulwinder Goodman MD, FACS Unavailable Unavailable Peralta Fontaine, Kulwinder Goodman MD, FACS Unavailable Unavailable Peralta Fontaine, Kulwinder Goodman MD, FACS Unavailable Unavailable Peralta Fontaine, Kulwinder Goodman MD, FACS Unavailable Unavailable Peralta Fontaine, Kulwinder Goodman MD, FACS Unavailable Unavailable Peralta Fontaine, Kulwinder Goodman MD, FACS Unavailable Unavailable Peralta Fontaine, Kulwinder Goodman MD, FACS Unavailable Unavailable Peralta Fontaine, Kulwinder Goodman MD, FACS Unavailable Unavailable Peralta Fontaine, Kulwinder Goodman MD, FACS Unavailable Unavailable Peralta Fontaine, Kulwinder Goodman MD, FACS Unavailable Unavailable Peralta Fontaine, Kulwinder Goodman MD, FACS Unavailable Unavailable Peralta Fontaine, Kulwinder Goodman MD, FACS Unavailable Unavailable Peralta Fontaine, Kulwinder Goodman MD, FACS Unavailable Unavailable Peralta Fontaine, Kulwinder Goodman MD, FACS Unavailable Unavailable Peralta Fontaine, Kulwinder Goodman MD, FACS Unavailable Unavailable Peralta Zhen, Kulwinder Goodman MD, FACS Unavailable Unavailable Peralta Zhen, Kulwinder Goodman MD, FACS Unavailable Unavailable Peralta Fontaine, Kulwinder Goodman MD, FACS Unavailable Unavailable Peralta Zhen, Kulwinder Goodman MD, FACS Unavailable Unavailable Peralta Fontaine, Kulwinder Goodman MD, FACS Unavailable Unavailable Peralta Fontaine, Kulwinder Goodman MD, FACS Unavailable Unavailable Peralta Fontaine, Kulwinder Goodman MD, FACS Unavailable Unavailable Peralta Fontaine, Kulwinder Goodman MD, FACS Unavailable Unavailable Peralta Fontaine, Kulwinder Goodman MD, FACS Unavailable Unavailable Peralta Fontaine, uKlwinder Goodman MD, FACS Unavailable Unavailable Peralta Fontaine, Kulwinder Goodman MD, FACS Unavailable Unavailable Peralta Fontaine, Kulwinder Goodman MD, FACS Unavailable Unavailable Peralta Fontaine, Kulwinder Goodman MD, FACS Unavailable Unavailable Peralta Fontaine, Kulwinder Goodman MD, FACS Unavailable Unavailable Peralta Fontaine, Kulwinder Goodman MD, FACS Unavailable Unavailable Peralta Fontaine, Kulwinder Goodman MD, FACS Unavailable Unavailable Peralta Fontaine, Kulwinder Goodman MD, FACS Unavailable Unavailable Peralta Fontaine, Kulwinder Goodman MD, FACS Unavailable Unavailable Peralta Fontaine, Kulwinder Goodman MD, FACS Unavailable Unavailable Peralta Fontaine, Kulwinder Goodman MD, FACS Unavailable Unavailable Peralta Fontaine, Kulwinder Goodman MD, FACS Unavailable Unavailable Peralta Fontaine, Kulwinder Goodman MD, FACS Unavailable Unavailable Peralta Fontaine, Kulwinder Goodman MD, FACS Unavailable Unavailable Peralta Fontaine, Kulwinder Goodman MD, FACS Unavailable Unavailable Trae SOMMER MD Unavailable Unavailable Trae SOMMER MD Unavailable Unavailable Trae SOMMER MD Unavailable Unavailable Trae SOMMER MD Unavailable Unavailable Trae SOMMER MD Unavailable Unavailable Trae SOMMER MD Unavailable Unavailable Trae SOMMER MD Unavailable Unavailable Trae SOMMER MD Unavailable Unavailable Trae SOMMER MD Unavailable Unavailable Trae SOMMER MD Unavailable Unavailable Trae SOMMER MD Unavailable Unavailable Trae SOMMER MD Unavailable Unavailable Trae SOMMER MD Unavailable Unavailable Trae SOMMER MD Unavailable Unavailable Trae SOMMER MD Unavailable Unavailable Trae SOMMER MD Unavailable Unavailable Trae SOMMER MD Unavailable Unavailable Trae SOMMER MD Unavailable Unavailable Trae SOMMER MD Unavailable Unavailable Trae SOMMER MD Unavailable Unavailable Trae SOMMER MD Unavailable Unavailable Trae SOMMER MD Unavailable Unavailable Trae SOMMER MD Unavailable Unavailable Trae SOMMER MD Unavailable Unavailable Trae SOMMER MD Unavailable Unavailable Trae SOMMER MD Unavailable Unavailable Trae SOMMER MD Unavailable Unavailable Trae SOMMER MD Unavailable Unavailable Trae SOMMER MD Unavailable Unavailable Trae SOMMER MD Unavailable Unavailable Trae SOMMER MD Unavailable Unavailable Trae SOMMER MD Unavailable Unavailable Trae SOMMER MD Unavailable Unavailable Trae SOMMER MD Unavailable Unavailable MIGUEL, J RAMOS DPM PC Unavailable Unavailable MIGUEL, J RAMOS DPM PC Unavailable Unavailable MIGUEL, J RAMOS DPM PC Unavailable Unavailable MIGUEL, J RAMOS DPM PC Unavailable Unavailable MIGUEL, J RAMOS DPM PC Unavailable Unavailable MIGULE, J RAMOS DPM PC Unavailable Unavailable MIGUEL, J RAMOS DPM PC Unavailable Unavailable MIGUEL, J RAMOS DPM PC Unavailable Unavailable MIGUEL, J RAMOS DPM PC Unavailable Unavailable MIGUEL, J RAMOS DPM PC Unavailable Unavailable MIGUEL, J RAMOS DPM PC Unavailable Unavailable MIGUEL, J RAMOS DPM PC Unavailable Unavailable MIGUEL, J RAMOS DPM PC Unavailable Unavailable MIGUEL, J RAMOS DPM PC Unavailable Unavailable MIGUEL, J RAMOS DPM PC Unavailable Unavailable MIGUEL, J RAMOS DPM PC Unavailable Unavailable MIGUEL, J RAMOS DPM PC Unavailable Unavailable MIGUEL, J RAMOS DPM PC Unavailable Unavailable MIGUEL, J RAMOS DPM PC Unavailable Unavailable MIGUEL, J RAMOS DPM PC Unavailable Unavailable MIGUEL, J RAMOS DPM PC Unavailable Unavailable MIGUEL, J RAMOS DPM PC Unavailable Unavailable MIGUEL, J RAMOS DPM PC Unavailable Unavailable MIGUEL, J RAMOS DPM PC Unavailable Unavailable MIGUEL, J RAMOS DPM PC Unavailable Unavailable MIGUEL, J RAMOS DPM PC Unavailable Unavailable MIGUEL, J RAMOS DPM PC Unavailable Unavailable MIGUEL, J RAMOS DPM PC Unavailable Unavailable MIGUEL, J RAMOS DPM PC Unavailable Unavailable MIGUEL, J RAMOS DPM PC Unavailable Unavailable MIGUEL, J RAMOS DPM PC Unavailable Unavailable MIGUEL, J RAMOS DPM PC Unavailable Unavailable MIGUEL, J RAMOS DPM PC Unavailable Unavailable MIGUEL, J RAMOS DPM PC Unavailable Unavailable MIGUEL, J RAMOS DPM PC Unavailable Unavailable MIGUEL, J RAMOS DPM PC Unavailable Unavailable MIGUEL, J RAMOS DPM PC Unavailable Unavailable MIGUEL, J RAMOS DPM PC Unavailable Unavailable MIGUEL, J RAMOS DPM PC Unavailable Unavailable MIGUEL, J RAMOS DPM PC Unavailable Unavailable MIGUEL, J RAMOS DPM PC Unavailable Unavailable MIGUEL, J RAMOS DPM PC Unavailable Unavailable MIGUEL, J RAMOS DPM PC Unavailable Unavailable MIGUEL, J RAMOS DPM PC Unavailable Unavailable MIGUEL, J RAMOS DPM PC Unavailable Unavailable MIGUEL, J RAMOS DPM PC Unavailable Unavailable Sarah RIVERA RAMOS DPM PC Unavailable Unavailable Sarah RIVERA RAMOS DPM PC Unavailable Unavailable Sarah RIVERA RAMOS DPM PC Unavailable Unavailable MIGUEL J RAMOS DPM PC Unavailable Unavailable MIGUEL, J RAMOS DPM PC Unavailable Unavailable MIGUEL J RAMOS DPM PC Unavailable Unavailable Sarah RIVERA RAMOS DPM PC Unavailable Unavailable Sarah RIVERA RAMOS DPM PC Unavailable Unavailable Sarah RIVERA RAMOS DPM PC Unavailable Unavailable MIGUEL J RAMOS DPM PC Unavailable Unavailable TAMIA, E SMILEY PA Unavailable Unavailable TAMIA, E SMILEY PA Unavailable Unavailable TAMIA, E SMILEY PA Unavailable Unavailable TAMIA, E SMILEY PA Unavailable Unavailable TAMIA, E SMILEY PA Unavailable Unavailable TAMIA, E SMILEY PA Unavailable Unavailable TAMIA, E SMILEY PA Unavailable Unavailable Re-disclosure Warning The records that you are about to access may contain information from federally-assisted alcohol or drug abuse programs. If such information is present, then the following federally mandated warning applies: This information has been disclosed to you from records protected by federal confidentiality rules (42 CFR part 2). The federal rules prohibit you from making any further disclosure of this information unless further disclosure is expressly permitted by the written consent of the person to whom it pertains or as otherwise permitted by 42 CFR part 2. A general authorization for the release of medical or other information is NOT sufficient for this purpose. The Federal rules restrict any use of the information to criminally investigate or prosecute any alcohol or drug abuse patient.The records that you are about to access may contain highly sensitive health information, the redisclosure of which is protected by Article 27-F of the [facility] Public Health law. If you continue you may have access to information: Regarding HIV / AIDS; Provided by facilities licensed or operated by the [facility] Office of Mental Health; or Provided by the [facility] Office for People With Developmental Disabilities. If such information is present, then the following [facility] mandated warning applies: This information has been disclosed to you from confidential records which are protected by state law. State law prohibits you from making any further disclosure of this information without the specific written consent of the person to whom it pertains, or as otherwise permitted by law. Any unauthorized further disclosure in violation of state law may result in a fine or detention sentence or both. A general authorization for the release of medical or other information is NOT sufficient authorization for further disc losure. Allergies and Adverse Reactions Type Description Substance Reaction Status Data Source(s ) Allergy to substance No Known Allergies No known allergies (situation ) JORY (Rex Fontaine MD [facility]) Allergy to substance No Known Allergies No known allergies (situation ) JORY (Rex Fontaine MD [facility]) Allergy to substance No Known Allergies No known allergies (situation ) JORY (Rex Fontaine MD [facility]) No Known Drug Allergies No Known Drug Allergies [facility] Family History Family Member Name Family Member Gender Family Member Status Date o f Status Description Data Source(s) Unknown Unknown Problem MEDENT ([facility] ) Unknown Female Problem MED[facility] ([facility] Unknown Female Problem MED[facility] ([facility]) Encounters Encounter Providers Location Date Indications Data Source(s ) Unknown [address] [address] 10/14/2021 12:00:00 AM EST eCW1 ([facility]) Unknown [address] [facility] [place] [address] 10/14/2021 12:00:00 AM EST eCW1 ([facility]) Outpatient [address] [facility] [place] [address] 09/27/2021 12:00:00 AM EST eCW1 ([facility]) Outpatient [address] [facility] [place] [address] 09/01/2021 12:00:00 AM EDT eCW1 ([facility]) [place] [address] [facility] [place] [address] 08/24/2021 12:00:00 AM EDT eCW1 [facility] Unknown [address] [facility] [place] [address] 08/21/2021 12:00:00 AM EDT eCW1 ([facility]) Unknown [address] [place] [address] 08/16/2021 12:00:00 AM EDT [facility] [place] [address] [facility] [place] [address] 08/16/2021 12:00:00 AM EDT [facility]CW1 [facility]) [place] [address] [facility] [place] [address] 07/30/2021 12:00:00 AM EDT [facility]) [place] [address] [facility] [place] [address] 06/24/2021 12:00:00 AM EDT [facility]) [place] [address] [facility] [place] [address] 06/19/2021 12:00:00 AM EDT [facility]) [place] [address] [facility] [place] [address] 06/14/2021 12:00:00 AM EDT eCW1 ([facility]) Unknown [address] [facility] [place] [address] 06/14/2021 12:00:00 AM EDT [facility]CW1 [facility]) [place] [address] [facility] [place] [address] 06/07/2021 12:00:00 AM EDT eCW1 [facility]) Outpatient<td ID="encounterTypeDescripti onID0">1 Year Follow-Up</td><td>Rex Nguyen MD, FACS</td><td>Rex Nguyen MD [facility]</td><td>06/01/2021</td><td>11:41AM</td><td>12:10PM</td><td><content ID="encounterDiagnosisID0-0">Congenital Ptosis</content>, <content ID="encounterDiagnosisID0-1">Conjunctivitis Chronic Allergic</content></td> Attender: Rex Fontaine MD, FACS Rex Nguyen MD [facility] 06/01/2021 11:41:0 0 AM EDT - 06/01/2021 12:10:00 PM EDT Congenital PtosisCongenital PtosisCongen ital PtosisConjunctivitis Chronic AllergicConjunctivitis Chronic AllergicConjunctivitis Chronic Allergic JORY (Rex Fontaine MD [facility]) 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 Chronic Allergic Conjunctivitis Chronic Allergic Conjunctivitis Chronic Allergic Out[place] [address] [facility] [place] [address] 05/18/2021 12:00:00 AM EDT eCW1 ([facility]) Unknown [address] [facility] [place] [address] 05/07/2021 12:00:00 AM EDT eCW1 ([facility]) Unknown [address] [facility] [place] [address] 04/22/2021 12:00:00 AM EDT [facility]CW1 [facility]) [place] [address] [facility] [place] [address] 04/14/2021 12:00:00 AM EDT [facility]) [place] [address] [facility] [place] [address] 04/06/2021 12:00:00 AM EDT eCW1 ([facility]) Outpatient [address] [facility] [place] [address] 03/17/2021 12:00:00 AM EDT eCW1 ([facility]) Unknown [address] [facility] [place] [address] 03/17/2021 12:00:00 AM EDT eCW1 [facility]) Outpatient Attender: RAMOS RIVERA DPM [facility] 02/24/2021 10:45:00 AM EDT MEDENT ([facility]) Outpatient Attender: RAMOS RIVERA DPM PCConsultant: ANTONIETTA MATA 02/24/2021 10:40:00 AM EDT - 02/24/2021 10:40:00 AM EDT [facility] Outpatient [address] [facility] [place] [address] 02/24/2021 12:00:00 AM EDT eCW1 ([facility]) [place] [address] [facility] [place] [address] 02/23/2021 12:00:00 AM EDT eCW1 ([facility]) Outpatient Attender: WILL Mckeon/William/Jorge garay/Luis 02/22/2021 01:30:00 PM EDT MEDENT ([facility]) [place] [address] [facility] [place] [address] 01/09/2021 12:00:00 AM EST eCW1 ([facility]) Unknown [address] [facility] [place] [address] 01/04/2021 12:00:00 AM EST eCW1 ([facility]) Unknown [address] [facility] [place] [address] 11/21/2020 12:00:00 AM EST eCW1 ([facility]) [place] [address] [facility] [place] [address] 11/11/2020 12:00:00 AM EST eCW1 ([facility]) [place] [address] [facility] [place] [address] 11/09/2020 12:00:00 AM EST eCW1 ([facility]) Unknown [address] [facility] [place] [address] 11/06/2020 12:00:00 AM EST eCW1 ([facility]) [place] [address] [facility] [place] [address] 10/17/2020 12:00:00 AM EST eCW1 ([facility]) Unknown [address] [facility] [place] [address] 09/14/2020 12:00:00 AM EST eCW1 ([facility]) Unknown [address] [facility] [place] [address] 09/12/2020 12:00:00 AM EDT eCW1 ([facility]) [place]patient [address] [facility] [place] [address] 08/31/2020 12:00:00 AM EDT eCW1 ([facility]) [place] [address] [facility] [place] [address] 08/25/2020 12:00:00 AM EDT eCW1 ([facility]) Immunizations Vaccine Date Status Description Data Source(s) COVID-19 dose #2 given elsewhere Unspecified 03/14/2021 10:3 2:00 AM EDT completed eCW1 ([facility]) COVID-19 dose #2 given elsewhere Unspecified 03/14/2021 10:3 2:00 AM EDT completed eCW1 ([facility]) COVID-19 dose #2 given elsewhere Unspecified 03/14/2021 10:3 2:00 AM EDT completed eCW1 ([facility]) COVID-19 dose #2 given elsewhere Unspecified 03/14/2021 10:3 2:00 AM EDT completed eCW1 ([facility]) COVID-19 dose #2 given elsewhere Unspecified 03/14/2021 10:3 2:00 AM EDT completed eCW1 ([facility]) COVID-19 dose #2 given elsewhere Unspecified 03/14/2021 10:3 2:00 AM EDT completed eCW1 ([facility]) COVID-19 dose #2 given elsewhere Unspecified 03/14/2021 10:3 2:00 AM EDT completed eCW1 ([facility]) COVID-19 dose #2 given elsewhere Unspecified 03/14/2021 10:3 2:00 AM EDT completed eCW1 ([facility]) COVID-19 dose #2 given elsewhere Unspecified 03/14/2021 10:3 2:00 AM EDT completed eCW1 ([facility]) COVID-19 dose #2 given elsewhere Unspecified 03/14/2021 10:3 2:00 AM EDT completed eCW1 ([facility]) COVID-19 dose #2 given elsewhere Unspecified 03/14/2021 10:3 2:00 AM EDT completed eCW1 ([facility]) COVID-19 dose #2 given elsewhere Unspecified 03/14/2021 10:3 2:00 AM EDT completed eCW1 ([facility]) COVID-19 dose #2 given elsewhere Unspecified 03/14/2021 10:3 2:00 AM EDT completed eCW1 ([facility]) COVID-19 dose #2 given elsewhere Unspecified 03/14/2021 10:3 2:00 AM EDT completed eCW1 ([facility]) COVID-19 dose #2 given elsewhere Unspecified 03/14/2021 10:3 2:00 AM EDT completed eCW1 ([facility]) COVID-19 dose #2 given elsewhere Unspecified 03/14/2021 10:3 2:00 AM EDT completed eCW1 ([facility]) COVID-19 dose #2 given elsewhere Unspecified 03/14/2021 10:3 2:00 AM EDT completed eCW1 ([facility]) COVID-19 dose #2 given elsewhere Unspecified 03/14/2021 10:3 2:00 AM EDT completed eCW1 ([facility]) COVID-19 dose #2 given elsewhere Unspecified 03/14/2021 10:3 2:00 AM EDT completed eCW1 ([facility]) COVID-19 dose #2 given elsewhere Unspecified 03/14/2021 10:3 2:00 AM EDT completed eCW1 ([facility]) COVID-19 dose #2 given elsewhere Unspecified 03/14/2021 10:3 2:00 AM EDT completed eCW1 ([facility]) COVID-19 VACC,MRNA(MODERNA)/PF 03/14/2021 12:00:00 AM EDT completed [facility] COVID-19 VACCINE Moderna 03/14/2021 12:00:00 AM EDT completed [employer] Vaccine Series Complete: YESThis Data wa s Submitted to [facility] Via [employer]. COVID-19 dose #1 given elsewhere Unspecified 02/11/2021 10:3 2:00 AM EDT completed eCW1 ([facility]) COVID-19 dose #1 given elsewhere Unspecified 02/11/2021 10:3 2:00 AM EDT completed eCW1 ([facility]) COVID-19 dose #1 given elsewhere Unspecified 02/11/2021 10:3 2:00 AM EDT completed eCW1 ([facility]) COVID-19 dose #1 given elsewhere Unspecified 02/11/2021 10:3 2:00 AM EDT completed eCW1 ([facility]) COVID-19 dose #1 given elsewhere Unspecified 02/11/2021 10:3 2:00 AM EDT completed eCW1 ([facility]) COVID-19 dose #1 given elsewhere Unspecified 02/11/2021 10:3 2:00 AM EDT completed eCW1 ([facility]) COVID-19 dose #1 given elsewhere Unspecified 02/11/2021 10:3 2:00 AM EDT completed eCW1 ([facility]) COVID-19 dose #1 given elsewhere Unspecified 02/11/2021 10:3 2:00 AM EDT completed eCW1 ([facility]) COVID-19 dose #1 given elsewhere Unspecified 02/11/2021 10:3 2:00 AM EDT completed eCW1 ([facility]) COVID-19 dose #1 given elsewhere Unspecified 02/11/2021 10:3 2:00 AM EDT completed eCW1 ([facility]) COVID-19 dose #1 given elsewhere Unspecified 02/11/2021 10:3 2:00 AM EDT completed eCW1 ([facility]) COVID-19 dose #1 given elsewhere Unspecified 02/11/2021 10:3 2:00 AM EDT completed eCW1 ([facility]) COVID-19 dose #1 given elsewhere Unspecified 02/11/2021 10:3 2:00 AM EDT completed eCW1 ([facility]) COVID-19 dose #1 given elsewhere Unspecified 02/11/2021 10:3 2:00 AM EDT completed eCW1 ([facility]) COVID-19 dose #1 given elsewhere Unspecified 02/11/2021 10:3 2:00 AM EDT completed eCW1 ([facility]) COVID-19 dose #1 given elsewhere Unspecified 02/11/2021 10:3 2:00 AM EDT completed eCW1 ([facility]) COVID-19 dose #1 given elsewhere Unspecified 02/11/2021 10:3 2:00 AM EDT completed eCW1 ([facility]) COVID-19 dose #1 given elsewhere Unspecified 02/11/2021 10:3 2:00 AM EDT completed eCW1 ([facility]) COVID-19 dose #1 given elsewhere Unspecified 02/11/2021 10:3 2:00 AM EDT completed eCW1 ([facility]) COVID-19 dose #1 given elsewhere Unspecified 02/11/2021 10:3 2:00 AM EDT completed eCW1 ([facility]) COVID-19 dose #1 given elsewhere Unspecified 02/11/2021 10:3 2:00 AM EDT completed eCW1 ([facility]) COVID-19 VACCINE Moderna 02/11/2021 12:00:00 AM EDT completed [employer] Vaccine Series Complete: NOThis Data was Submitted to [facility] Via [employer]. COVID-19 VACCINE, MRNA-1273, LNP-S (MODERNA)/PF 02/11/2021 1 2:00:00 AM EDT completed [facility] This CVX code allows reporting of a vacc ination when formulation is unknown (for example, when recording a Influenza vaccination when noted on a vaccination card) 09/02/2020 09:58:00 AM EDT completed MEDEN T ([facility]) INFLUENZA VIRUS VACCINE QUADRIVAL 2897-8538(6 MOS AND UP)/PF 09/02/2020 12:00:00 AM EDT completed [facility] Medications Medication Brand Name Start Date Product Form Dose Route Admi nistrative Instructions Pharmacy Instructions Status Indications Reaction Description Data Source(s) Mupirocin 0.02 MG/MG Topical Ointment Mupirocin 2 % Mupiroci n 2 % 09/27/2021 12:00:00 AM EST active e CW1 ([facility]) Mupirocin 0.02 MG/MG Topical Ointment Mupirocin 2 % Mupiroci n 2 % 09/27/2021 12:00:00 AM EST active Mupiroci n 2 % eCW1 ([facility]) Mupirocin 0.02 MG/MG Topical Ointment Mupirocin 2 % Mupiroci n 2 % 09/27/2021 12:00:00 AM EST active Mupiroci n 2 % eCW1 ([facility]) 2 % 09/27/2021 12:00:00 AM EST ointment 22 APPLY TWO TIMES A DAY TO LEFT THUMB NAIL FOR 10 DAYS APPLY TWO TIMES A DAY TO LEFT THUMB NAIL FOR 10 DAYS SOLD: 09/27/2021 [facility] 0.3 % 08/05/2021 12:00:00 AM EDT drops 5 INSTILL 1 DROP INTO RIGHT EYE FOUR TIMES A DAY INSTILL 1 DROP INTO RIGHT EYE FOUR TIMES A DAY SOLD: 08/05/2021 [facility] 25 mg 08/02/2021 12:00:00 AM EDT tablet 60 TAKE TWO TABLETS BY MOUTH AT BEDTIME NEEDED TAKE TWO TABLETS BY MOUTH AT BEDTIME NEEDED SOLD: 08/03/2021 [facility] 25 mg 06/15/2021 12:00:00 AM EDT tablet 60 TAKE TWO TABLETS BY MOUTH BEFORE BEDTIME NEEDED TAKE TWO TABLETS BY MOUTH BEFORE BEDTIME NEEDED RAMÓN [facility] venlafaxine 75 MG Oral Tablet VENLAFAXINE HCL 06/08/2021 12:00:00 A M EDT tablet 30 TAKE ONE TABLET BY MOUTH EVERY DAY - OLGA E WITH FOOD TAKE ONE TABLET BY MOUTH EVERY DAY - TAKE WITH FOOD SOLD: 06/09/2021 [facility] venlafaxine 75 MG Oral Tablet Venlafaxine HCl 75 MG Venlafax ine HCl 75 MG 06/07/2021 12:00:00 AM EDT 1.0 {tablet_with_food} active Venlafaxine HCl 75 MG eCW1 ([facility]) venlafaxine 75 MG Oral Tablet Venlafaxine HCl 75 MG Venlafax ine HCl 75 MG 06/07/2021 12:00:00 AM EDT 1.0 {tablet_with_food} active Venlafaxine HCl 75 MG eCW1 ([facility]) venlafaxine 75 MG Oral Tablet Venlafaxine HCl 75 MG Venlafax ine HCl 75 MG 06/07/2021 12:00:00 AM EDT 1.0 {tablet_with_food} ac tive eCW1 ([facility]) venlafaxine 75 MG Oral Tablet Venlafaxine HCl 75 MG Venlafax ine HCl 75 MG 06/07/2021 12:00:00 AM EDT 1.0 {tablet_with_food} active Venlafaxine HCl 75 MG eCW1 ([facility]) venlafaxine 75 MG Oral Tablet Venlafaxine HCl 75 MG Venlafax ine HCl 75 MG 06/07/2021 12:00:00 AM EDT 1.0 {tablet_with_food} active Venlafaxine HCl 75 MG eCW1 ([facility]) venlafaxine 75 MG Oral Tablet Venlafaxine HCl 75 MG Venlafax ine HCl 75 MG 06/07/2021 12:00:00 AM EDT 1.0 {tablet_with_food} active Venlafaxine HCl 75 MG eCW1 ([facility]) venlafaxine 75 MG Oral Tablet Venlafaxine HCl 75 MG Venlafax ine HCl 75 MG 06/07/2021 12:00:00 AM EDT 1.0 {tablet_with_food} ac tive eCW1 ([facility]) venlafaxine 75 MG Oral Tablet Venlafaxine HCl 75 MG Venlafax ine HCl 75 MG 06/07/2021 12:00:00 AM EDT 1.0 {tablet_with_food} active Venlafaxine HCl 75 MG eCW1 ([facility]) venlafaxine 75 MG Oral Tablet Venlafaxine HCl 75 MG Venlafax ine HCl 75 MG 06/07/2021 12:00:00 AM EDT 1.0 {tablet_with_food} active Venlafaxine HCl 75 MG eCW1 ([facility]) venlafaxine 75 MG Oral Tablet Venlafaxine HCl 75 MG Venlafax ine HCl 75 MG 06/07/2021 12:00:00 AM EDT 1.0 {tablet_with_food} active Venlafaxine HCl 75 MG eCW1 ([facility]) venlafaxine 75 MG Oral Tablet Venlafaxine HCl 75 MG Venlafax ine HCl 75 MG 06/07/2021 12:00:00 AM EDT 1.0 {tablet_with_food} active Venlafaxine HCl 75 MG eCW1 ([facility]) venlafaxine 75 MG Oral Tablet Venlafaxine HCl 75 MG Venlafax ine HCl 75 MG 06/07/2021 12:00:00 AM EDT 1.0 {tablet_with_food} active Venlafaxine HCl 75 MG eCW1 ([facility]) venlafaxine 75 MG Oral Tablet Venlafaxine HCl 75 MG Venlafax ine HCl 75 MG 06/07/2021 12:00:00 AM EDT 1.0 {tablet_with_food} active Venlafaxine HCl 75 MG eCW1 ([facility]) venlafaxine 75 MG Oral Tablet Venlafaxine HCl 75 MG Venlafax ine HCl 75 MG 06/07/2021 12:00:00 AM EDT 1.0 {tablet_with_food} active Venlafaxine HCl 75 MG eCW1 ([facility]) Alprazolam 0.25 MG Oral Tablet ALPRAZolam 0.25 MG ALPRAZolam 0.25 MG 04/14/2021 12:00:00 AM EDT 1.0 {tablet} suspended eCW1 ([facility]) Alprazolam 0.25 MG Oral Tablet ALPRAZolam 0.25 MG ALPRAZolam 0.25 MG 04/14/2021 12:00:00 AM EDT 1.0 {tablet} suspended ALPRAZolam 0.25 MG eCW1 ([facility]) venlafaxine 37.5 MG Oral Tablet Venlafaxine HCl 37.5 MG Venl afaxine HCl 37.5 MG 04/14/2021 12:00:00 AM EDT 1.0 {tablet_with_food} active Venlafaxine HCl 37.5 MG eCW1 ([facility]) venlafaxine 37.5 MG Oral Tablet Venlafaxine HCl 37.5 MG Venl afaxine HCl 37.5 MG 04/14/2021 12:00:00 AM EDT 1.0 {tablet_with_food} active Venlafaxine HCl 37.5 MG eCW1 ([facility]) Alprazolam 0.25 MG Oral Tablet ALPRAZolam 0.25 MG ALPRAZolam 0.25 MG 04/14/2021 12:00:00 AM EDT 1.0 {tablet} suspended ALPRAZolam 0.25 MG eCW1 ([facility]) Alprazolam 0.25 MG Oral Tablet ALPRAZolam 0.25 MG ALPRAZolam 0.25 MG 04/14/2021 12:00:00 AM EDT 1.0 {tablet} suspended ALPRAZolam 0.25 MG eCW1 ([facility]) venlafaxine 37.5 MG Oral Tablet Venlafaxine HCl 37.5 MG Venl afaxine HCl 37.5 MG 04/14/2021 12:00:00 AM EDT 1.0 {tablet_with_food} active Venlafaxine HCl 37.5 MG eCW1 ([facility]) Alprazolam 0.25 MG Oral Tablet ALPRAZolam 0.25 MG ALPRAZolam 0.25 MG 04/14/2021 12:00:00 AM EDT 1.0 {tablet} suspended ALPRAZolam 0.25 MG eCW1 ([facility]) Alprazolam 0.25 MG Oral Tablet ALPRAZolam 0.25 MG ALPRAZolam 0.25 MG 04/14/2021 12:00:00 AM EDT 1.0 {tablet} suspended ALPRAZolam 0.25 MG eCW1 ([facility]) venlafaxine 37.5 MG Oral Tablet VENLAFAXINE HCL 04/14/2021 12:00 :00 AM EDT tablet 30 TAKE ONE TABLET BY MOUTH EVERY D AY WITH FOOD TAKE ONE TABLET BY MOUTH EVERY DAY WITH FOOD SOLD: 05/24/2021 [facility] Alprazolam 0.25 MG Oral Tablet ALPRAZolam 0.25 MG ALPRAZolam 0.25 MG 04/14/2021 12:00:00 AM EDT 1.0 {tablet} suspended ALPRAZolam 0.25 MG eCW1 ([facility]) Alprazolam 0.25 MG Oral Tablet ALPRAZolam 0.25 MG ALPRAZolam 0.25 MG 04/14/2021 12:00:00 AM EDT 1.0 {tablet} suspended ALPRAZolam 0.25 MG eCW1 ([facility]) Alprazolam 0.25 MG Oral Tablet ALPRAZolam 0.25 MG ALPRAZolam 0.25 MG 04/14/2021 12:00:00 AM EDT 1.0 {tablet} active AL PRAZolam 0.25 MG eCW1 ([facility]) Alprazolam 0.25 MG Oral Tablet ALPRAZolam 0.25 MG ALPRAZolam 0.25 MG 04/14/2021 12:00:00 AM EDT 1.0 {tablet} suspended ALPRAZolam 0.25 MG eCW1 ([facility]) Alprazolam 0.25 MG Oral Tablet ALPRAZolam 0.25 MG ALPRAZolam 0.25 MG 04/14/2021 12:00:00 AM EDT 1.0 {tablet} suspended ALPRAZolam 0.25 MG eCW1 ([facility]) Alprazolam 0.25 MG Oral Tablet ALPRAZolam 0.25 MG ALPRAZolam 0.25 MG 04/14/2021 12:00:00 AM EDT 1.0 {tablet} suspended ALPRAZolam 0.25 MG eCW1 ([facility]) Alprazolam 0.25 MG Oral Tablet ALPRAZolam 0.25 MG ALPRAZolam 0.25 MG 04/14/2021 12:00:00 AM EDT 1.0 {tablet} active AL PRAZolam 0.25 MG eCW1 ([facility]) venlafaxine 37.5 MG Oral Tablet VENLAFAXINE HCL 04/14/2021 12:00 :00 AM EDT tablet 30 TAKE ONE TABLET BY MOUTH EVERY D AY WITH FOOD TAKE ONE TABLET BY MOUTH EVERY DAY WITH FOOD SOLD: 04/15/2021 [facility] Alprazolam 0.25 MG Oral Tablet ALPRAZolam 0.25 MG ALPRAZolam 0.25 MG 04/14/2021 12:00:00 AM EDT 1.0 {tablet} suspended eCW1 ([facility]) Alprazolam 0.25 MG Oral Tablet Alprazolam 0.25 MG 04/14/2021 12:00: 00 AM EDT 1.0 {tablet} active Alprazolam 0.25 MG eCW1 ([facility]) Alprazolam 0.25 MG Oral Tablet ALPRAZolam 0.25 MG ALPRAZolam 0.25 MG 04/14/2021 12:00:00 AM EDT 1.0 {tablet} suspended ALPRAZolam 0.25 MG eCW1 ([facility]) venlafaxine 37.5 MG Oral Tablet Venlafaxine HCl 37.5 MG Venl afaxine HCl 37.5 MG 04/14/2021 12:00:00 AM EDT 1.0 {tablet_with_food} active Venlafaxine HCl 37.5 MG eCW1 ([facility]) Alprazolam 0.25 MG Oral Tablet ALPRAZOLAM 04/14/2021 12:00:00 AM EDT t ablet 6 TAKE ONE TABLET BY MOUTH TWICE A DAY NEEDED FOR SEVERE ANXIETY, MAXIMUM DAILY DOSE = 2 TABLETS TAKE ONE TABLET BY MOUTH TWICE A DAY NEEDED FOR SEVERE ANXIETY, MAXIMUM DAILY DOSE = 2 TABLETS SOLD: 04/15/2021 [facility] Alprazolam 0.25 MG Oral Tablet ALPRAZolam 0.25 MG ALPRAZolam 0.25 MG 04/14/2021 12:00:00 AM EDT 1.0 {tablet} suspended ALPRAZolam 0.25 MG eCW1 ([facility]) Alprazolam 0.25 MG Oral Tablet ALPRAZolam 0.25 MG ALPRAZolam 0.25 MG 04/14/2021 12:00:00 AM EDT 1.0 {tablet} active AL PRAZolam 0.25 MG eCW1 ([facility]) 15 mg 04/07/2021 12:00:00 AM EDT tablet extended release 24hr 30 TAKE ONE TABLET BY MOUTH EVERY DAY TAKE ONE TABLET BY MOUTH EVERY DAY SOLD: 04/08/2021 [facility] 15 mg 04/07/2021 12:00:00 AM EDT tablet extended release 24hr 30 TAKE ONE TABLET BY MOUTH EVERY DAY TAKE ONE TABLET BY MOUTH EVERY DAY SOLD: 05/04/2021 [facility] Covid-19 vaccine, Unspecified 03/14/2021 12:00:00 AM EDT completed [facility] ([facility]) Medication administered onsite 0.05 % 02/25/2021 12:00:00 AM EDT ointment 60 APPLY TO AFFECTED AREA(S) TWO TIMES A DAY FOR 14 DAYS APPLY TO AFFECTED AREA(S) TWO TIMES A DAY FOR 14 DAYS SOLD: 02/26/2021 [facility] 1 % 02/25/2021 12:00:00 AM EDT lotion 60 APPLY TO AFFECTED AREA(S) TWO TIMES A DAY FOR 30 DAYS APPLY TO AFFECTED AREA(S) TWO TIMES A DAY FOR 30 DAYS SOLD: 02/26/2021 [facility] Clobetasol Propionate 0.0005 MG/MG Topic al Ointment Clobetasol Propionate 0.05 % Clobetasol Propionate 0.05 % 02/24/2021 12:00:00 AM EDT 1.0 {application} suspended eCW1 ([facility]) Clindamycin 10 MG/ML Topical Lotion Clindamycin Phosph ate 1 % Clindamycin Phosphate 1 % 02/24/2021 12:00:00 AM EDT 1.0 {application} active Clindamycin Phosphate 1 % eCW1 ([facility]) Clobetasol Propionate 0.0005 MG/MG Topic al Ointment Clobetasol Propionate 0.05 % Clobetasol Propionate 0.05 % 02/24/2021 12:00:00 AM EDT 1.0 {application} active Clobetasol Propionate 0.05 % eCW1 ([facility]) Clobetasol Propionate 0.0005 MG/MG Topic al Ointment Clobetasol Propionate 0.05 % Clobetasol Propionate 0.05 % 02/24/2021 12:00:00 AM EDT 1.0 {application} active Clobetasol Propionate 0.05 % eCW1 ([facility]) Clindamycin 10 MG/ML Topical Lotion Clindamycin Phosph ate 1 % Clindamycin Phosphate 1 % 02/24/2021 12:00:00 AM EDT 1.0 {application} suspended eCW1 ([facility]) Clobetasol Propionate 0.0005 MG/MG Topic al Ointment Clobetasol Propionate 0.05 % Clobetasol Propionate 0.05 % 02/24/2021 12:00:00 AM EDT 1.0 {application} suspended Clobetasol Propionate 0.05 % eCW1 ([facility]) Clobetasol Propionate 0.0005 MG/MG Topic al Ointment Clobetasol Propionate 0.05 % Clobetasol Propionate 0.05 % 02/24/2021 12:00:00 AM EDT 1.0 {application} suspended eCW1 ([facility]) Clobetasol Propionate 0.0005 MG/MG Topic al Ointment Clobetasol Propionate 0.05 % Clobetasol Propionate 0.05 % 02/24/2021 12:00:00 AM EDT 1.0 {application} active Clobetasol Propionate 0.05 % eCW1 ([facility]) Clobetasol Propionate 0.0005 MG/MG Topic al Ointment Clobetasol Propionate 0.05 % Clobetasol Propionate 0.05 % 02/24/2021 12:00:00 AM EDT 1.0 {application} suspended Clobetasol Propionate 0.05 % eCW1 ([facility]) Clobetasol Propionate 0.0005 MG/MG Topic al Ointment Clobetasol Propionate 0.05 % Clobetasol Propionate 0.05 % 02/24/2021 12:00:00 AM EDT 1.0 {application} suspended Clobetasol Propionate 0.05 % eCW1 ([facility]) Clobetasol Propionate 0.0005 MG/MG Topic al Ointment Clobetasol Propionate 0.05 % Clobetasol Propionate 0.05 % 02/24/2021 12:00:00 AM EDT 1.0 {application} active Clobetasol Propionate 0.05 % eCW1 ([facility]) Clindamycin 10 MG/ML Topical Lotion Clindamycin Phosph ate 1 % Clindamycin Phosphate 1 % 02/24/2021 12:00:00 AM EDT 1.0 {application} active Clindamycin Phosphate 1 % eCW1 ([facility]) Clindamycin 10 MG/ML Topical Lotion Clindamycin Phosph ate 1 % Clindamycin Phosphate 1 % 02/24/2021 12:00:00 AM EDT 1.0 {application} active Clindamycin Phosphate 1 % eCW1 ([facility]) Clobetasol Propionate 0.0005 MG/MG Topic al Ointment Clobetasol Propionate 0.05 % Clobetasol Propionate 0.05 % 02/24/2021 12:00:00 AM EDT 1.0 {application} suspended Clobetasol Propionate 0.05 % eCW1 ([facility]) Clobetasol Propionate 0.0005 MG/MG Topic al Ointment Clobetasol Propionate 0.05 % Clobetasol Propionate 0.05 % 02/24/2021 12:00:00 AM EDT 1.0 {application} suspended Clobetasol Propionate 0.05 % eCW1 ([facility]) Clobetasol Propionate 0.0005 MG/MG Topic al Ointment Clobetasol Propionate 0.05 % Clobetasol Propionate 0.05 % 02/24/2021 12:00:00 AM EDT 1.0 {application} suspended Clobetasol Propionate 0.05 % eCW1 ([facility]) Clindamycin 10 MG/ML Topical Lotion Clindamycin Phosph ate 1 % Clindamycin Phosphate 1 % 02/24/2021 12:00:00 AM EDT 1.0 {application} suspended Clindamycin Phosphate 1 % eCW1 ([facility]) Clobetasol Propionate 0.0005 MG/MG Topic al Ointment Clobetasol Propionate 0.05 % Clobetasol Propionate 0.05 % 02/24/2021 12:00:00 AM EDT 1.0 {application} suspended Clobetasol Propionate 0.05 % eCW1 ([facility]) Clindamycin 10 MG/ML Topical Lotion Clindamycin Phosph ate 1 % Clindamycin Phosphate 1 % 02/24/2021 12:00:00 AM EDT 1.0 {application} suspended Clindamycin Phosphate 1 % eCW1 ([facility]) Clindamycin 10 MG/ML Topical Lotion Clindamycin Phosph ate 1 % Clindamycin Phosphate 1 % 02/24/2021 12:00:00 AM EDT 1.0 {application} suspended Clindamycin Phosphate 1 % eCW1 ([facility]) Clobetasol Propionate 0.0005 MG/MG Topic al Ointment Clobetasol Propionate 0.05 % Clobetasol Propionate 0.05 % 02/24/2021 12:00:00 AM EDT 1.0 {application} suspended Clobetasol Propionate 0.05 % eCW1 ([facility]) Clindamycin 10 MG/ML Topical Lotion Clindamycin Phosph ate 1 % Clindamycin Phosphate 1 % 02/24/2021 12:00:00 AM EDT 1.0 {application} suspended Clindamycin Phosphate 1 % eCW1 ([facility]) Clobetasol Propionate 0.0005 MG/MG Topic al Ointment Clobetasol Propionate 0.05 % Clobetasol Propionate 0.05 % 02/24/2021 12:00:00 AM EDT 1.0 {application} suspended Clobetasol Propionate 0.05 % eCW1 ([facility]) Clobetasol Propionate 0.0005 MG/MG Topic al Ointment Clobetasol Propionate 0.05 % Clobetasol Propionate 0.05 % 02/24/2021 12:00:00 AM EDT 1.0 {application} suspended Clobetasol Propionate 0.05 % eCW1 ([facility]) Clindamycin 10 MG/ML Topical Lotion Clindamycin Phosph ate 1 % Clindamycin Phosphate 1 % 02/24/2021 12:00:00 AM EDT 1.0 {application} active Clindamycin Phosphate 1 % eCW1 ([facility]) Clindamycin 10 MG/ML Topical Lotion Clindamycin Phosph ate 1 % Clindamycin Phosphate 1 % 02/24/2021 12:00:00 AM EDT 1.0 {application} suspended Clindamycin Phosphate 1 % eCW1 ([facility]) Clindamycin 10 MG/ML Topical Lotion Clindamycin Phosph ate 1 % Clindamycin Phosphate 1 % 02/24/2021 12:00:00 AM EDT 1.0 {application} active Clindamycin Phosphate 1 % eCW1 ([facility]) Clindamycin 10 MG/ML Topical Lotion Clindamycin Phosph ate 1 % Clindamycin Phosphate 1 % 02/24/2021 12:00:00 AM EDT 1.0 {application} suspended Clindamycin Phosphate 1 % eCW1 ([facility]) Clobetasol Propionate 0.0005 MG/MG Topic al Ointment Clobetasol Propionate 0.05 % Clobetasol Propionate 0.05 % 02/24/2021 12:00:00 AM EDT 1.0 {application} active Clobetasol Propionate 0.05 % eCW1 ([facility]) Clindamycin 10 MG/ML Topical Lotion Clindamycin Phosph ate 1 % Clindamycin Phosphate 1 % 02/24/2021 12:00:00 AM EDT 1.0 {application} suspended eCW1 ([facility]) Clindamycin 10 MG/ML Topical Lotion Clindamycin Phosph ate 1 % Clindamycin Phosphate 1 % 02/24/2021 12:00:00 AM EDT 1.0 {application} active Clindamycin Phosphate 1 % eCW1 ([facility]) Clindamycin 10 MG/ML Topical Lotion Clindamycin Phosph ate 1 % Clindamycin Phosphate 1 % 02/24/2021 12:00:00 AM EDT 1.0 {application} suspended Clindamycin Phosphate 1 % eCW1 ([facility]) Clobetasol Propionate 0.0005 MG/MG Topic al Ointment Clobetasol Propionate 0.05 % Clobetasol Propionate 0.05 % 02/24/2021 12:00:00 AM EDT 1.0 {application} active Clobetasol Propionate 0.05 % eCW1 ([facility]) Clindamycin 10 MG/ML Topical Lotion Clindamycin Phosph ate 1 % Clindamycin Phosphate 1 % 02/24/2021 12:00:00 AM EDT 1.0 {application} suspended Clindamycin Phosphate 1 % eCW1 ([facility]) Clobetasol Propionate 0.0005 MG/MG Topic al Ointment Clobetasol Propionate 0.05 % Clobetasol Propionate 0.05 % 02/24/2021 12:00:00 AM EDT 1.0 {application} active Clobetasol Propionate 0.05 % eCW1 ([facility]) Clindamycin 10 MG/ML Topical Lotion Clindamycin Phosph ate 1 % Clindamycin Phosphate 1 % 02/24/2021 12:00:00 AM EDT 1.0 {application} suspended Clindamycin Phosphate 1 % eCW1 ([facility]) Clobetasol Propionate 0.0005 MG/MG Topic al Ointment Clobetasol Propionate 0.05 % Clobetasol Propionate 0.05 % 02/24/2021 12:00:00 AM EDT 1.0 {application} suspended Clobetasol Propionate 0.05 % eCW1 ([facility]) Clindamycin 10 MG/ML Topical Lotion Clindamycin Phosph ate 1 % Clindamycin Phosphate 1 % 02/24/2021 12:00:00 AM EDT 1.0 {application} active Clindamycin Phosphate 1 % eCW1 ([facility]) Clindamycin 10 MG/ML Topical Lotion Clindamycin Phosph ate 1 % Clindamycin Phosphate 1 % 02/24/2021 12:00:00 AM EDT 1.0 {application} suspended Clindamycin Phosphate 1 % eCW1 ([facility]) Clindamycin 10 MG/ML Topical Lotion Clindamycin Phosph ate 1 % Clindamycin Phosphate 1 % 02/24/2021 12:00:00 AM EDT 1.0 {application} suspended Clindamycin Phosphate 1 % eCW1 ([facility]) Clobetasol Propionate 0.0005 MG/MG Topic al Ointment Clobetasol Propionate 0.05 % Clobetasol Propionate 0.05 % 02/24/2021 12:00:00 AM EDT 1.0 {application} active Clobetasol Propionate 0.05 % eCW1 ([facility]) Clindamycin 10 MG/ML Topical Lotion Clindamycin Phosph ate 1 % Clindamycin Phosphate 1 % 02/24/2021 12:00:00 AM EDT 1.0 {application} suspended Clindamycin Phosphate 1 % eCW1 ([facility]) Clobetasol Propionate 0.0005 MG/MG Topic al Ointment Clobetasol Propionate 0.05 % Clobetasol Propionate 0.05 % 02/24/2021 12:00:00 AM EDT 1.0 {application} suspended Clobetasol Propionate 0.05 % eCW1 ([facility]) Clindamycin 10 MG/ML Topical Lotion Clindamycin Phosph ate 1 % Clindamycin Phosphate 1 % 02/24/2021 12:00:00 AM EDT 1.0 {application} active Clindamycin Phosphate 1 % eCW1 ([facility]) Clindamycin 10 MG/ML Topical Lotion Clindamycin Phosph ate 1 % Clindamycin Phosphate 1 % 02/24/2021 12:00:00 AM EDT 1.0 {application} active Clindamycin Phosphate 1 % eCW1 ([facility]) Clobetasol Propionate 0.0005 MG/MG Topic al Ointment Clobetasol Propionate 0.05 % Clobetasol Propionate 0.05 % 02/24/2021 12:00:00 AM EDT 1.0 {application} active Clobetasol Propionate 0.05 % eCW1 ([facility]) 24 HR Oxybutynin chloride 15 MG Extended Release Oral Tablet Oxybutynin Chloride ER 15 MG Oxybutynin Chloride ER 15 MG 02/23/2021 12:00:00 AM EDT 1.0 {tablet} active Oxybutynin Chloride ER 15 MG eCW1 ([facility]) 24 HR Oxybutynin chloride 15 MG Extended Release Oral Tablet Oxybutynin Chloride ER 15 MG Oxybutynin Chloride ER 15 MG 02/23/2021 12:00:00 AM EDT 1.0 {tablet} active Oxybutynin Chloride ER 15 MG eCW1 ([facility]) 24 HR Oxybutynin chloride 15 MG Extended Release Oral Tablet Oxybutynin Chloride ER 15 MG Oxybutynin Chloride ER 15 MG 02/23/2021 12:00:00 AM EDT 1.0 {tablet} active Oxybutynin Chloride ER 15 MG eCW1 ([facility]) 24 HR Oxybutynin chloride 15 MG Extended Release Oral Tablet Oxybutynin Chloride ER 15 MG Oxybutynin Chloride ER 15 MG 02/23/2021 12:00:00 AM EDT 1.0 {tablet} active Oxybutynin Chloride ER 15 MG eCW1 ([facility]) 24 HR Oxybutynin chloride 10 MG Extended Release Oral Tablet Oxybutynin Chloride ER 10 MG Oxybutynin Chloride ER 10 MG 02/23/2021 12:00:00 AM EDT 1.0 {tablet} active Oxybutynin Chloride ER 10 MG eCW1 ([facility]) 24 HR Oxybutynin chloride 15 MG Extended Release Oral Tablet Oxybutynin Chloride ER 15 MG Oxybutynin Chloride ER 15 MG 02/23/2021 12:00:00 AM EDT 1.0 {tablet} active Oxybutynin Chloride ER 15 MG eCW1 ([facility]) 24 HR Oxybutynin chloride 15 MG Extended Release Oral Tablet Oxybutynin Chloride ER 15 MG Oxybutynin Chloride ER 15 MG 02/23/2021 12:00:00 AM EDT 1.0 {tablet} active Oxybutynin Chloride ER 15 MG eCW1 ([facility]) 24 HR Oxybutynin chloride 15 MG Extended Release Oral Tablet Oxybutynin Chloride ER 15 MG Oxybutynin Chloride ER 15 MG 02/23/2021 12:00:00 AM EDT 1.0 {tablet} active Oxybutynin Chloride ER 15 MG eCW1 ([facility]) 24 HR Oxybutynin chloride 15 MG Extended Release Oral Tablet Oxybutynin Chloride ER 15 MG Oxybutynin Chloride ER 15 MG 02/23/2021 12:00:00 AM EDT 1.0 {tablet} active Oxybutynin Chloride ER 15 MG eCW1 ([facility]) 10 mg 02/23/2021 12:00:00 AM EDT tablet extended release 24hr 30 TAKE ONE TABLET BY MOUTH EVERY DAY TAKE ONE TABLET BY MOUTH EVERY DAY SOLD: 03/22/2021 [facility] 24 HR Oxybutynin chloride 15 MG Extended Release Oral Tablet Oxybutynin Chloride ER 15 MG Oxybutynin Chloride ER 15 MG 02/23/2021 12:00:00 AM EDT 1.0 {tablet} active Oxybutynin Chloride ER 15 MG eCW1 ([facility]) 24 HR Oxybutynin chloride 15 MG Extended Release Oral Tablet Oxybutynin Chloride ER 15 MG Oxybutynin Chloride ER 15 MG 02/23/2021 12:00:00 AM EDT 1.0 {tablet} active eCW1 ([facility]) 24 HR Oxybutynin chloride 15 MG Extended Release Oral Tablet Oxybutynin Chloride ER 15 MG Oxybutynin Chloride ER 15 MG 02/23/2021 12:00:00 AM EDT 1.0 {tablet} active Oxybutynin Chloride ER 15 MG eCW1 ([facility]) 24 HR Oxybutynin chloride 15 MG Extended Release Oral Tablet Oxybutynin Chloride ER 15 MG Oxybutynin Chloride ER 15 MG 02/23/2021 12:00:00 AM EDT 1.0 {tablet} active Oxybutynin Chloride ER 15 MG eCW1 ([facility]) 24 HR Oxybutynin chloride 15 MG Extended Release Oral Tablet Oxybutynin Chloride ER 15 MG Oxybutynin Chloride ER 15 MG 02/23/2021 12:00:00 AM EDT 1.0 {tablet} active Oxybutynin Chloride ER 15 MG eCW1 ([facility]) 24 HR Oxybutynin chloride 15 MG Extended Release Oral Tablet Oxybutynin Chloride ER 15 MG Oxybutynin Chloride ER 15 MG 02/23/2021 12:00:00 AM EDT 1.0 {tablet} active Oxybutynin Chloride ER 15 MG eCW1 ([facility]) 24 HR Oxybutynin chloride 15 MG Extended Release Oral Tablet Oxybutynin Chloride ER 15 MG Oxybutynin Chloride ER 15 MG 02/23/2021 12:00:00 AM EDT 1.0 {tablet} active Oxybutynin Chloride ER 15 MG eCW1 ([facility]) 24 HR Oxybutynin chloride 15 MG Extended Release Oral Tablet Oxybutynin Chloride ER 15 MG Oxybutynin Chloride ER 15 MG 02/23/2021 12:00:00 AM EDT 1.0 {tablet} active Oxybutynin Chloride ER 15 MG eCW1 ([facility]) 24 HR Oxybutynin chloride 15 MG Extended Release Oral Tablet Oxybutynin Chloride ER 15 MG Oxybutynin Chloride ER 15 MG 02/23/2021 12:00:00 AM EDT 1.0 {tablet} active Oxybutynin Chloride ER 15 MG eCW1 ([facility]) 24 HR Oxybutynin chloride 10 MG Extended Release Oral Tablet Oxybutynin Chloride ER 10 MG Oxybutynin Chloride ER 10 MG 02/23/2021 12:00:00 AM EDT 1.0 {tablet} active Oxybutynin Chloride ER 10 MG eCW1 ([facility]) 24 HR Oxybutynin chloride 15 MG Extended Release Oral Tablet Oxybutynin Chloride ER 15 MG Oxybutynin Chloride ER 15 MG 02/23/2021 12:00:00 AM EDT 1.0 {tablet} active Oxybutynin Chloride ER 15 MG eCW1 ([facility]) 24 HR Oxybutynin chloride 15 MG Extended Release Oral Tablet Oxybutynin Chloride ER 15 MG Oxybutynin Chloride ER 15 MG 02/23/2021 12:00:00 AM EDT 1.0 {tablet} active eCW1 ([facility]) 10 mg 02/23/2021 12:00:00 AM EDT tablet extended release 24hr 30 TAKE ONE TABLET BY MOUTH EVERY DAY TAKE ONE TABLET BY MOUTH EVERY DAY SOLD: 02/23/2021 [facility] 24 HR Oxybutynin chloride 10 MG Extended Release Oral Tablet Oxybutynin Chloride ER 10 MG Oxybutynin Chloride ER 10 MG 02/23/2021 12:00:00 AM EDT 1.0 {tablet} active Oxybutynin Chloride ER 10 MG eCW1 ([facility]) 24 HR Oxybutynin chloride 10 MG Extended Release Oral Tablet Oxybutynin Chloride ER 10 MG Oxybutynin Chloride ER 10 MG 02/23/2021 12:00:00 AM EDT 1.0 {tablet} active Oxybutynin Chloride ER 10 MG eCW1 ([facility]) Psyllium 14.2 MG/ML Oral Suspension [Metamucil] Metamucil 02/22/2021 12:00:00 AM EDT ORAL active MEDENT ([facility], ) Covid-19 vaccine, Unspecified 02/11/2021 12:00:00 AM EDT completed MED[facility] ([facility]) Medication administered onsite 0.3 mg/0.3 mL 01/20/2021 12:00:00 AM EST auto-injector 2 INJECT INTRAMUSCULARLY INTO THIGH NEEDED FOR ALLERGIC EMERGENCY INJECT INTRAMUSCULARLY INTO THIGH NEEDED FOR ALLERGIC EMERGENCY SOLD: 01/20/2021 [facility] Sodium Chloride 0.111 MEQ/ML Nasal Solution Saline Mist Spra y 01/20/2021 12:00:00 AM EST completed MEDENT ([facility]) 25 mg 01/12/2021 12:00:00 AM EST tablet 180 TAKE TWO TABLETS BY MOUTH EVERY DAY NEEDED BEFORE BEDTIME TAKE TWO TABLETS BY MOUTH EVERY DAY N EEDED BEFORE BEDTIME SOLD: 01/13/2021 Cesar troncoso 25 mg 01/12/2021 12:00:00 AM EST tablet 180 TAKE TWO TABLETS BY MOUTH EVERY DAY NEEDED BEFORE BEDTIME TAKE TWO TABLETS BY MOUTH EVERY DAY N EEDED BEFORE BEDTIME SOLD: 04/08/2021 Cesar troncoso Atopaderm - Atopaderm - 01/04/2021 12:00:00 AM EST suspended Atopaderm - eCW1 ([facility]) Atopaderm - Atopaderm - 01/04/2021 12:00:00 AM EST suspended Atopaderm - eCW1 ([facility]) Atopaderm - Atopaderm - 01/04/2021 12:00:00 AM EST suspended Atopaderm - eCW1 ([facility]) Atopaderm - Atopaderm - 01/04/2021 12:00:00 AM EST active Atopaderm - eCW1 ([facility]) Atopaderm - Atopaderm - 01/04/2021 12:00:00 AM EST active Atopaderm - eCW1 ([facility]) Atopaderm - Atopaderm - 01/04/2021 12:00:00 AM EST suspended Atopaderm - eCW1 ([facility]) Atopaderm - Atopaderm - 01/04/2021 12:00:00 AM EST suspended Atopaderm - eCW1 ([facility]) Atopaderm - Atopaderm - 01/04/2021 12:00:00 AM EST suspended Atopaderm - eCW1 ([facility]) Atopaderm - Atopaderm - 01/04/2021 12:00:00 AM EST active Atopaderm - eCW1 ([facility]) Atopaderm - Atopaderm - 01/04/2021 12:00:00 AM EST active Atopaderm - eCW1 ([facility]) Atopaderm - Atopaderm - 01/04/2021 12:00:00 AM EST suspended Atopaderm - eCW1 ([facility]) Atopaderm - Atopaderm - 01/04/2021 12:00:00 AM EST active Atopaderm - eCW1 ([facility]) Atopaderm - Atopaderm - 01/04/2021 12:00:00 AM EST suspended eCW1 ([facility]) Atopaderm - Atopaderm - 01/04/2021 12:00:00 AM EST active Atopaderm - eCW1 ([facility]) Atopaderm - Atopaderm - 01/04/2021 12:00:00 AM EST active Atopaderm - eCW1 ([facility]) Atopaderm - Atopaderm - 01/04/2021 12:00:00 AM EST active Atopaderm - eCW1 ([facility]) Atopaderm - Atopaderm - 01/04/2021 12:00:00 AM EST suspended Atopaderm - eCW1 ([facility]) Atopaderm - Atopaderm - 01/04/2021 12:00:00 AM EST suspended eCW1 ([facility]) Atopaderm - Atopaderm - 01/04/2021 12:00:00 AM EST suspended Atopaderm - eCW1 ([facility]) Atopaderm - Atopaderm - 01/04/2021 12:00:00 AM EST suspended Atopaderm - eCW1 ([facility]) Atopaderm - Atopaderm - 01/04/2021 12:00:00 AM EST active Atopaderm - eCW1 ([facility]) Atopaderm - Atopaderm - 01/04/2021 12:00:00 AM EST active Atopaderm - eCW1 ([facility]) Atopaderm - Atopaderm - 01/04/2021 12:00:00 AM EST suspended Atopaderm - eCW1 ([facility]) Atopaderm - Atopaderm - 01/04/2021 12:00:00 AM EST active Atopaderm - eCW1 ([facility]) Atopaderm - Atopaderm - 01/04/2021 12:00:00 AM EST suspended Atopaderm - eCW1 ([facility]) Hylatopic Plus - Hylatopic Plus - 01/03/2021 12:00:00 AM EST suspended Hylatopic Plus - eCW1 ([facility]) Hylatopic Plus - Hylatopic Plus - 01/03/2021 12:00:00 AM EST active Hylatopic Plus - eCW1 ([facility]) Hylatopic Plus - Hylatopic Plus - 01/03/2021 12:00:00 AM EST suspended eCW1 ([facility]) Hylatopic Plus - Hylatopic Plus - 01/03/2021 12:00:00 AM EST active Hylatopic Plus - eCW1 ([facility]) Hylatopic Plus - Hylatopic Plus - 01/03/2021 12:00:00 AM EST suspended eCW1 ([facility]) Hylatopic Plus - Hylatopic Plus - 01/03/2021 12:00:00 AM EST active Hylatopic Plus - eCW1 ([facility]) Hylatopic Plus - Hylatopic Plus - 01/03/2021 12:00:00 AM EST suspended Hylatopic Plus - eCW1 ([facility]) Hylatopic Plus - Hylatopic Plus - 01/03/2021 12:00:00 AM EST suspended Hylatopic Plus - eCW1 ([facility]) Hylatopic Plus - Hylatopic Plus - 01/03/2021 12:00:00 AM EST active Hylatopic Plus - eCW1 ([facility]) Hylatopic Plus - Hylatopic Plus - 01/03/2021 12:00:00 AM EST active Hylatopic Plus - eCW1 ([facility]) Hylatopic Plus - Hylatopic Plus - 01/03/2021 12:00:00 AM EST suspended Hylatopic Plus - eCW1 ([facility]) Hylatopic Plus - Hylatopic Plus - 01/03/2021 12:00:00 AM EST suspended Hylatopic Plus - eCW1 ([facility]) Hylatopic Plus - Hylatopic Plus - 01/03/2021 12:00:00 AM EST active Hylatopic Plus - eCW1 ([facility]) Hylatopic Plus - Hylatopic Plus - 01/03/2021 12:00:00 AM EST active Hylatopic Plus - eCW1 ([facility]) Hylatopic Plus - Hylatopic Plus - 01/03/2021 12:00:00 AM EST active Hylatopic Plus - eCW1 ([facility]) Hylatopic Plus - Hylatopic Plus - 01/03/2021 12:00:00 AM EST suspended Hylatopic Plus - eCW1 ([facility]) Hylatopic Plus - Hylatopic Plus - 01/03/2021 12:00:00 AM EST active Hylatopic Plus - eCW1 ([facility]) Hylatopic Plus - Hylatopic Plus - 01/03/2021 12:00:00 AM EST active Hylatopic Plus - eCW1 ([facility]) Hylatopic Plus - Hylatopic Plus - 01/03/2021 12:00:00 AM EST suspended Hylatopic Plus - eCW1 ([facility]) Hylatopic Plus - Hylatopic Plus - 01/03/2021 12:00:00 AM EST suspended Hylatopic Plus - eCW1 ([facility]) Hylatopic Plus - Hylatopic Plus - 01/03/2021 12:00:00 AM EST suspended Hylatopic Plus - eCW1 ([facility]) Hylatopic Plus - Hylatopic Plus - 01/03/2021 12:00:00 AM EST suspended Hylatopic Plus - eCW1 ([facility]) Hylatopic Plus - Hylatopic Plus - 01/03/2021 12:00:00 AM EST active Hylatopic Plus - eCW1 ([facility]) Hylatopic Plus - Hylatopic Plus - 01/03/2021 12:00:00 AM EST suspended Hylatopic Plus - eCW1 ([facility]) Hylatopic Plus - Hylatopic Plus - 01/03/2021 12:00:00 AM EST suspended Hylatopic Plus - eCW1 ([facility]) Hydroxyzine Hydrochloride 25 MG Oral Tablet HydrOXYzin e HCl 25 MG HydrOXYzine HCl 25 MG 11/22/2020 12:00:00 AM EST 2.0 {tablet_as_needed} active HydrOXYzine HCl 25 MG eCW1 ([facility]) Hydroxyzine Hydrochloride 25 MG Oral Tablet hydrOXYzin e HCl 25 MG hydrOXYzine HCl 25 MG 11/22/2020 12:00:00 AM EST 2.0 {tablet_as_needed} active hydrOXYzine HCl 25 MG eCW1 ([facility]) Hydroxyzine Hydrochloride 25 MG Oral Tablet HydrOXYzin e HCl 25 MG HydrOXYzine HCl 25 MG 11/22/2020 12:00:00 AM EST 2.0 {tablet_as_needed} active HydrOXYzine HCl 25 MG eCW1 ([facility]) Hydroxyzine Hydrochloride 25 MG Oral Tablet HydrOXYzin e HCl 25 MG HydrOXYzine HCl 25 MG 11/22/2020 12:00:00 AM EST 1.0 {tablet_as_needed} active HydrOXYzine HCl 25 MG eCW1 ([facility]) Hydroxyzine Hydrochloride 25 MG Oral Tablet hydrOXYzin e HCl 25 MG hydrOXYzine HCl 25 MG 11/22/2020 12:00:00 AM EST 2.0 {tablet_as_needed} active hydrOXYzine HCl 25 MG eCW1 ([facility]) Hydroxyzine Hydrochloride 25 MG Oral Tablet hydrOXYzin e HCl 25 MG hydrOXYzine HCl 25 MG 11/22/2020 12:00:00 AM EST 2.0 {tablet_as_needed} active hydrOXYzine HCl 25 MG eCW1 ([facility]) Hydroxyzine Hydrochloride 25 MG Oral Tablet HydrOXYzin e HCl 25 MG HydrOXYzine HCl 25 MG 11/22/2020 12:00:00 AM EST 2.0 {tablet_as_needed} active HydrOXYzine HCl 25 MG eCW1 ([facility]) Hydroxyzine Hydrochloride 25 MG Oral Tablet hydrOXYzin e HCl 25 MG hydrOXYzine HCl 25 MG 11/22/2020 12:00:00 AM EST 2.0 {tablet_as_needed} active hydrOXYzine HCl 25 MG eCW1 ([facility]) Hydroxyzine Hydrochloride 25 MG Oral Tablet HydrOXYzin e HCl 25 MG HydrOXYzine HCl 25 MG 11/22/2020 12:00:00 AM EST 2.0 {tablet_as_needed} active HydrOXYzine HCl 25 MG eCW1 ([facility]) Hydroxyzine Hydrochloride 25 MG Oral Tablet hydrOXYzin e HCl 25 MG hydrOXYzine HCl 25 MG 11/22/2020 12:00:00 AM EST 2.0 {tablet_as_needed} active hydrOXYzine HCl 25 MG eCW1 ([facility]) Hydroxyzine Hydrochloride 25 MG Oral Tablet hydrOXYzin e HCl 25 MG hydrOXYzine HCl 25 MG 11/22/2020 12:00:00 AM EST 2.0 {tablet_as_needed} active eCW1 ([facility]) Hydroxyzine Hydrochloride 25 MG Oral Tablet hydrOXYzin e HCl 25 MG hydrOXYzine HCl 25 MG 11/22/2020 12:00:00 AM EST 2.0 {tablet_as_needed} active hydrOXYzine HCl 25 MG eCW1 ([facility]) Hydroxyzine Hydrochloride 25 MG Oral Tablet hydrOXYzin e HCl 25 MG hydrOXYzine HCl 25 MG 11/22/2020 12:00:00 AM EST 2.0 {tablet_as_needed} active hydrOXYzine HCl 25 MG eCW1 ([facility]) Hydroxyzine Hydrochloride 25 MG Oral Tablet hydrOXYzin e HCl 25 MG hydrOXYzine HCl 25 MG 11/22/2020 12:00:00 AM EST 2.0 {tablet_as_needed} active eCW1 ([facility]) Hydroxyzine Hydrochloride 25 MG Oral Tablet hydrOXYzin e HCl 25 MG hydrOXYzine HCl 25 MG 11/22/2020 12:00:00 AM EST 2.0 {tablet_as_needed} active hydrOXYzine HCl 25 MG eCW1 ([facility]) Hydroxyzine Hydrochloride 25 MG Oral Tablet HydrOXYzin e HCl 25 MG HydrOXYzine HCl 25 MG 11/22/2020 12:00:00 AM EST 2.0 {tablet_as_needed} active HydrOXYzine HCl 25 MG eCW1 ([facility]) Hydroxyzine Hydrochloride 25 MG Oral Tablet hydrOXYzin e HCl 25 MG hydrOXYzine HCl 25 MG 11/22/2020 12:00:00 AM EST 2.0 {tablet_as_needed} active hydrOXYzine HCl 25 MG eCW1 ([facility]) 25 mg 11/22/2020 12:00:00 AM EST tablet 90 TAKE ONE TABLET BY MOUTH EVERY DAY BEFORE BEDTIME NEEDED TAKE ONE TABLET BY MOUTH EVERY DAY BEFOR E BEDTIME NEEDED SOLD: 11/23/2020 Cesar Venegas s Hydroxyzine Hydrochloride 25 MG Oral Tablet HydrOXYzin e HCl 25 MG HydrOXYzine HCl 25 MG 11/22/2020 12:00:00 AM EST 2.0 {tablet_as_needed} active HydrOXYzine HCl 25 MG eCW1 ([facility]) Hydroxyzine Hydrochloride 25 MG Oral Tablet hydrOXYzin e HCl 25 MG hydrOXYzine HCl 25 MG 11/22/2020 12:00:00 AM EST 2.0 {tablet_as_needed} active hydrOXYzine HCl 25 MG eCW1 ([facility]) Hydroxyzine Hydrochloride 25 MG Oral Tablet hydrOXYzin e HCl 25 MG hydrOXYzine HCl 25 MG 11/22/2020 12:00:00 AM EST 2.0 {tablet_as_needed} active hydrOXYzine HCl 25 MG eCW1 ([facility]) Hydroxyzine Hydrochloride 25 MG Oral Tablet HydrOXYzin e HCl 25 MG HydrOXYzine HCl 25 MG 11/22/2020 12:00:00 AM EST 2.0 {tablet_as_needed} active HydrOXYzine HCl 25 MG eCW1 ([facility]) Hydroxyzine Hydrochloride 25 MG Oral Tablet HydrOXYzin e HCl 25 MG HydrOXYzine HCl 25 MG 11/22/2020 12:00:00 AM EST 1.0 {tablet_as_needed} active HydrOXYzine HCl 25 MG eCW1 ([facility]) Hydroxyzine Hydrochloride 25 MG Oral Tablet HydrOXYzin e HCl 25 MG HydrOXYzine HCl 25 MG 11/22/2020 12:00:00 AM EST 1.0 {tablet_as_needed} active HydrOXYzine HCl 25 MG eCW1 ([facility]) Hydroxyzine Hydrochloride 25 MG Oral Tablet hydrOXYzin e HCl 25 MG hydrOXYzine HCl 25 MG 11/22/2020 12:00:00 AM EST 2.0 {tablet_as_needed} active hydrOXYzine HCl 25 MG eCW1 ([facility]) Hydroxyzine Hydrochloride 25 MG Oral Tablet hydrOXYzin e HCl 25 MG hydrOXYzine HCl 25 MG 11/22/2020 12:00:00 AM EST 2.0 {tablet_as_needed} active hydrOXYzine HCl 25 MG eCW1 ([facility]) Hydroxyzine Hydrochloride 25 MG Oral Tablet hydrOXYzin e HCl 25 MG hydrOXYzine HCl 25 MG 11/22/2020 12:00:00 AM EST 2.0 {tablet_as_needed} active hydrOXYzine HCl 25 MG eCW1 ([facility]) Hydroxyzine Hydrochloride 25 MG Oral Tablet hydrOXYzin e HCl 25 MG hydrOXYzine HCl 25 MG 11/22/2020 12:00:00 AM EST 2.0 {tablet_as_needed} active hydrOXYzine HCl 25 MG eCW1 ([facility]) Enskyce 0.15-30 MG-MCG Enskyce 0.15-30 MG-MCG 11/09/2020 12:00:00 A M EST 1.0 {tablet} active Enskyce 0.15-30 MG-MCG eCW1 ([facility]) Enskyce 0.15-30 MG-MCG Enskyce 0.15-30 MG-MCG 11/09/2020 12:00:00 A M EST 1.0 {tablet} active Enskyce 0.15-30 MG-MCG eCW1 ([facility]) Enskyce 0.15-30 MG-MCG Enskyce 0.15-30 MG-MCG 11/09/2020 12:00:00 A M EST 1.0 {tablet} active Enskyce 0.15-30 MG-MCG eCW1 ([facility]) Enskyce 0.15-30 MG-MCG Enskyce 0.15-30 MG-MCG 11/09/2020 12:00:00 A M EST 1.0 {tablet} active Enskyce 0.15-30 MG-MCG eCW1 ([facility]) Enskyce 0.15-30 MG-MCG Enskyce 0.15-30 MG-MCG 11/09/2020 12:00:00 A M EST 1.0 {tablet} active Enskyce 0.15-30 MG-MCG eCW1 ([facility]) Enskyce 0.15-30 MG-MCG Enskyce 0.15-30 MG-MCG 11/09/2020 12:00:00 A M EST 1.0 {tablet} active Enskyce 0.15-30 MG-MCG eCW1 ([facility]) Enskyce 0.15-30 MG-MCG Enskyce 0.15-30 MG-MCG 11/09/2020 12:00:00 A M EST 1.0 {tablet} active Enskyce 0.15-30 MG-MCG eCW1 ([facility]) Enskyce 0.15-30 MG-MCG Enskyce 0.15-30 MG-MCG 11/09/2020 12:00:00 A M EST 1.0 {tablet} active Enskyce 0.15-30 MG-MCG eCW1 ([facility]) Enskyce 0.15-30 MG-MCG Enskyce 0.15-30 MG-MCG 11/09/2020 12:00:00 A M EST 1.0 {tablet} active Enskyce 0.15-30 MG-MCG eCW1 ([facility]) Enskyce 0.15-30 MG-MCG Enskyce 0.15-30 MG-MCG 11/09/2020 12:00:00 A M EST 1.0 {tablet} active Enskyce 0.15-30 MG-MCG eCW1 ([facility]) Isibloom 28 Day Pack 0.15-0.03 mg DESOGESTREL-ETHINYL ESTRAD IOL 11/08/2020 12:00:00 AM EST tablet 28 TAKE ONE TABLET BY MOUTH EVERY DAY TAKE ONE TABLET BY MOUTH EVERY DAY SOLD: 11/15/2020 [facility] Fluconazole 150 MG Oral Tablet Fluconazole 150 MG 09/14/2020 12:00: 00 AM EST 1.0 {tablet} active Fluconazole 150 MG eCW1 ([facility]) Fluconazole 150 MG Oral Tablet Fluconazole 150 MG 09/14/2020 12:00: 00 AM EST 1.0 {tablet} active Fluconazole 150 MG eCW1 ([facility]) Fluconazole 150 MG Oral Tablet Fluconazole 150 MG 09/14/2020 12:00: 00 AM EST 1.0 {tablet} active Fluconazole 150 MG eCW1 ([facility]) Fluconazole 150 MG Oral Tablet Fluconazole 150 MG 09/14/2020 12:00: 00 AM EST 1.0 {tablet} active Fluconazole 150 MG eCW1 ([facility]) Fluconazole 150 MG Oral Tablet Fluconazole 150 MG 09/14/2020 12:00: 00 AM EST 1.0 {tablet} active Fluconazole 150 MG eCW1 ([facility]) Fluconazole 150 MG Oral Tablet Fluconazole 150 MG 09/14/2020 12:00: 00 AM EST 1.0 {tablet} active Fluconazole 150 MG eCW1 ([facility]) Fluconazole 150 MG Oral Tablet Fluconazole 150 MG 09/14/2020 12:00: 00 AM EST 1.0 {tablet} active Fluconazole 150 MG eCW1 ([facility]) Fluconazole 150 MG Oral Tablet Fluconazole 150 MG 09/14/2020 12:00: 00 AM EST 1.0 {tablet} active Fluconazole 150 MG eCW1 ([facility]) Fluconazole 150 MG Oral Tablet Fluconazole 150 MG 09/14/2020 12:00: 00 AM EST 1.0 {tablet} active Fluconazole 150 MG eCW1 ([facility]) Fluconazole 150 MG Oral Tablet Fluconazole 150 MG 09/14/2020 12:00: 00 AM EST 1.0 {tablet} active Fluconazole 150 MG eCW1 ([facility]) Fluconazole 150 MG Oral Tablet Fluconazole 150 MG 09/14/2020 12:00: 00 AM EST 1.0 {tablet} active Fluconazole 150 MG eCW1 ([facility]) Fluzone Quadrivalent Fluzone Quadrivalent 09/02/2020 12:00:00 AM EDT completed MEDENT ([facility]) Triamcinolone Acetonide 1 MG/ML Topical Cream Triamcin olone Acetonide 0.1 % Triamcinolone Acetonide 0.1 % 08/31/2020 12:00:00 AM EDT active Triamcinolone Acetonide 0.1 % eCW1 ([facility]) Cephalexin 500 MG Oral Capsule [Keflex] Keflex 500 MG Keflex 500 MG 08/31/2020 12:00:00 AM EDT active Keflex 5 00 MG eCW1 ([facility]) Cephalexin 500 MG Oral Capsule [Keflex] Keflex 500 MG Keflex 500 MG 08/31/2020 12:00:00 AM EDT active Keflex 5 00 MG eCW1 ([facility]) Cephalexin 500 MG Oral Capsule [Keflex] Keflex 500 MG Keflex 500 MG 08/31/2020 12:00:00 AM EDT active Keflex 5 00 MG eCW1 ([facility]) Triamcinolone Acetonide 1 MG/ML Topical Cream Triamcin olone Acetonide 0.1 % Triamcinolone Acetonide 0.1 % 08/31/2020 12:00:00 AM EDT active Triamcinolone Acetonide 0.1 % eCW1 ([facility]) 0.1 % 08/31/2020 12:00:00 AM EDT cream 80 APPLY TWO TIMES A DAY TO BILATERAL HANDS/WRISTS APPLY TWO TIMES A DAY TO BILATERAL HANDS/WRISTS SOLD: 2019 [facility] Triamcinolone Acetonide 1 MG/ML Topical Cream Triamcin olone Acetonide 0.1 % Triamcinolone Acetonide 0.1 % 08/31/2020 12:00:00 AM EDT suspended Triamcinolone Acetonide 0.1 % eCW1 ([facility]) Cephalexin 500 MG Oral Capsule [Keflex] Keflex 500 MG Keflex 500 MG 08/31/2020 12:00:00 AM EDT active Keflex 5 00 MG eCW1 ([facility]) Keflex 500 MG UNK 08/31/2020 12:00:00 AM EDT acti ve Keflex 500 MG eCW1 ([facility]) Triamcinolone Acetonide 1 MG/ML Topical Cream Triamcin olone Acetonide 0.1 % Triamcinolone Acetonide 0.1 % 08/31/2020 12:00:00 AM EDT active Triamcinolone Acetonide 0.1 % eCW1 ([facility]) Triamcinolone Acetonide 1 MG/ML Topical Cream Triamcin olone Acetonide 0.1 % Triamcinolone Acetonide 0.1 % 08/31/2020 12:00:00 AM EDT active Triamcinolone Acetonide 0.1 % eCW1 ([facility]) Cephalexin 500 MG Oral Capsule [Keflex] Keflex 500 MG Keflex 500 MG 08/31/2020 12:00:00 AM EDT active Keflex 5 00 MG eCW1 ([facility]) Cephalexin 500 MG Oral Capsule [Keflex] Keflex 500 MG Keflex 500 MG 08/31/2020 12:00:00 AM EDT active Keflex 5 00 MG eCW1 ([facility]) Keflex 500 MG UNK 08/31/2020 12:00:00 AM EDT acti ve Keflex 500 MG eCW1 ([facility]) Cephalexin 500 MG Oral Capsule [Keflex] Keflex 500 MG Keflex 500 MG 08/31/2020 12:00:00 AM EDT active Keflex 5 00 MG eCW1 ([facility]) Cephalexin 500 MG Oral Capsule [Keflex] Keflex 500 MG Keflex 500 MG 08/31/2020 12:00:00 AM EDT active Keflex 5 00 MG eCW1 ([facility]) Triamcinolone Acetonide 1 MG/ML Topical Cream Triamcin olone Acetonide 0.1 % Triamcinolone Acetonide 0.1 % 08/31/2020 12:00:00 AM EDT active Triamcinolone Acetonide 0.1 % eCW1 ([facility]) Triamcinolone Acetonide 1 MG/ML Topical Cream Triamcin olone Acetonide 0.1 % Triamcinolone Acetonide 0.1 % 08/31/2020 12:00:00 AM EDT active Triamcinolone Acetonide 0.1 % eCW1 ([facility]) Triamcinolone Acetonide 1 MG/ML Topical Cream Triamcin olone Acetonide 0.1 % Triamcinolone Acetonide 0.1 % 08/31/2020 12:00:00 AM EDT suspended Triamcinolone Acetonide 0.1 % eCW1 ([facility]) Triamcinolone Acetonide 1 MG/ML Topical Cream Triamcin olone Acetonide 0.1 % Triamcinolone Acetonide 0.1 % 08/31/2020 12:00:00 AM EDT active Triamcinolone Acetonide 0.1 % eCW1 ([facility]) Triamcinolone Acetonide 1 MG/ML Topical Cream Triamcin olone Acetonide 0.1 % Triamcinolone Acetonide 0.1 % 08/31/2020 12:00:00 AM EDT active Triamcinolone Acetonide 0.1 % eCW1 ([facility]) Triamcinolone Acetonide 1 MG/ML Topical Cream Triamcin olone Acetonide 0.1 % Triamcinolone Acetonide 0.1 % 08/31/2020 12:00:00 AM EDT active Triamcinolone Acetonide 0.1 % eCW1 ([facility]) Triamcinolone Acetonide 1 MG/ML Topical Cream Triamcin olone Acetonide 0.1 % Triamcinolone Acetonide 0.1 % 08/31/2020 12:00:00 AM EDT active Triamcinolone Acetonide 0.1 % eCW1 ([facility]) Keflex 500 MG UNK 08/31/2020 12:00:00 AM EDT acti ve Keflex 500 MG eCW1 ([facility]) Keflex 500 MG UNK 08/31/2020 12:00:00 AM EDT acti ve Keflex 500 MG eCW1 ([facility]) Triamcinolone Acetonide 1 MG/ML Topical Cream Triamcin olone Acetonide 0.1 % Triamcinolone Acetonide 0.1 % 08/31/2020 12:00:00 AM EDT active Triamcinolone Acetonide 0.1 % eCW1 ([facility]) Keflex 500 MG UNK 08/31/2020 12:00:00 AM EDT acti ve Keflex 500 MG eCW1 ([facility]) Cephalexin 500 MG Oral Capsule CEPHALEXIN 08/31/2020 12:00:00 AM EDT capsule 20 TAKE ONE CAPSULE BY MOUTH TWICE A DAY FOR 10 DAYS TAKE ONE CAPSULE BY MOUTH TWICE A DAY FOR 10 DAYS SOLD: 09/01/2020 [facility] Saline 08/19/2020 12:00:00 AM EDT completed MEDENT ([facility]) Insurance Providers Payer name Policy type / Coverage type Policy ID Covered green party ID Covered green party's relationship to sandoval Policy Sandoval Plan Information [place]BS [place] PPO 302/307 [id number] MO2 [id number] [facility] [facility] [place] [facility] 306/806 [id number] MO2 [id number] [employer] BC//BS Commercial [id number] Family Dependent [id number] [employer] BC//BS Commercial [id number] Family Dependent [employer] BC//BS Commercial [id number] Family Dependent [id number] [employer] BC//BS Commercial [id number] Family Dependent [id number] [employer] BC//BS Commercial [id number] Family Dependent [id number] [employer]//BS Commercial [id number] Family Dependent [id number] [employer]//BS Commercial [id number] Family Dependent [id number] [facility] 302/307 [id number] MO2 [id number] [facility] BCBS Health Maintenance Organization (HMO) [id number] Family Dependent [id number] [employer] UNAVAILABLE 19 [facility]ABLE [facility] BCBS Health Maintenance Organization (HMO) [id number] Family Dependent [id number] ANSI-Commercial [id number] ANSI-Commercial [id number] ANSI-Commercial [id number] ANSI-Commercial [id number] ANSI-Commercial [id number] ANSI-Commercial [id number]-c5uo-0950-257d-35p1knws5f42 1d2107q4-s5rf-2297-421y-24h4sdlv4o40 ANSI-Commercial f68ege98-9j8m-4l88-9dkz-[id number] m24zbv36-7g2o-5s91-6rre-062t34407g72 ANSI-Commercial 497v7913-mj36-973r-8033-09rba3fa8ab2 125c8025-wt86-237p-9567-37tnr5tk6sx7 ANSI-Commercial 3ozvdu2j-n750-2785-16wz-[id number] 8pvcyk9y-b662-2722-31hh-5z1723o52c29 ANSI-Commercial 258w683s-al29-0e4v-y536-988q8hebib31 549y888e-lr50-2d8z-z766-039o2bepmk76 ANSI-Commercial 71ivdf9g-880a-67x6-125p-7zs682155nwl 47ugbb4l-898g-44v7-195g-1ls101985rgk ANSI-Commercial 144h3h3v-2s87-16x6-k45k-5u880587np3z 071f9u4o-1p50-69c1-d67r-5f503576kg5y ANSI-Commercial b63o082p-jag2-428g-0j4h-w0v9221c11y2 t42n978y-dxh4-851b-7s6q-h5o6056v35t2 [employer] BCBS B [id number] C VYS [employer] [place] PPO 302/307 [id number] MO2 [id number] BLUE CROSS BLUE SHIELD-CLINIC [id number] 19 [id number] EXCELLUS BCBS P [id number] C VYA BC[employer] [place] PPO 302/307 [id number] MO2 [id number] BCBS of [facility] Other 0 [id number] Family D ependent Vanessa Matos 0 BCBS [place] PPO 302/307 [id number] MO2 [id number] BCBS of [facility] Other 0 [id number] Family D ependent Vanessa Matos 0 BCBS of [facility] Other 0 [id number] Family D ependent Vanessa Matos 0 BLUE CROSS BLUE SHIELD [place] [id number] 19 [id number] EXCELL[employer] BCBS B [id number] C VYS [employer] [place] PPO 302/307 [id number] MO2 [id number] [employer] [place] [id number] Other [id number] [employer] [place] [id number] Other [id number] Problems, Conditions, and Diagnoses Code Display Name Description Problem Type Effective Dates Data Source(s) R35.1 [id number] Nocturia Problem 04/06/2021 12:00:00 AM ED T eCW1 ([facility]) 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) Surgeries/Procedures Procedure Description Date Indications Data Source(s) Allergy Mixed Antigens 08/10/2021 12:00:00 AM EDT MEDENT ([facility]) OFFICE OUTPATIENT VISIT 25 MINUTES 05/26/2021 12:00:00 AM EDT MED[facility] ([facility]) uro PVR (Post Voiding Residual) Bladder Scan 12:00:00 AM EDT eCW1 ([facility]) ECG ROUTINE ECG W/LEAST 12 LDS W/I&R 03/17/2021 12:00: 00 AM EDT eCW1 ([facility]) Strapping Ankle/foot 02/24/2021 12:00:00 AM EDT MEDENT ([facility]) Allergy Mixed Antigens 01/26/2021 12:00:00 AM EDT MED[facility] ([facility]) OFFICE OUTPATIENT VISIT 25 MINUTES 01/20/2021 12:00:00 AM EST MED[facility] ([facility]) Allergy Mixed Antigens 10/21/2020 12:00:00 AM EST MED[facility] ([facility]) Results ID Date Data Source [facility] Knee, complete 09/02/2021 12:00:00 AM EDT eCW1 ([facility]) Name Value Range Interpretation Code Description Data Cora rce(s) Supporting Document(s) [facility] Knee, complete eCW1 ([facility]) ID Date Data Source FREE T4 & TSH PANEL 03/17/2021 12:00:00 AM EDT eCW1 ([facility]) Name Value Range Interpretation Code Description Data Cora rce(s) Supporting Document(s) 2.540 0.358-3.740 THYROID STIMULATING HORM ONE eCW1 ([facility]) 0.95 0.76-1.46 FREE T4 eCW1 ([facility]) ID Date Data Source [id number] 02/15/2021 11:19:00 AM EDT MEDENT ([facility]) Name Value Range Interpretation Code Description Data Cora rce(s) Supporting Document(s) QuantiFERON Criteria Laboratory test result Norm al (applies to non-numeric results) [facility] ([facility]) . The QuantiFERON-TB Gold Plus result is determined by subtracting the Nil value from either TB antigen (Ag) tube. The mitogen tube serves as a control for the test. QuantiFERON TB2 Ag Value 0.04 IU/ml Normal (applies to non -numeric results) [facility] ([facility]) QuantiFERON TB1 Ag Value 0.05 IU/ml Normal (applies to non -numeric results) [facility] ([facility]) QuantiFERON Mitogen Value Laboratory test result Normal (applies to non- numeric results) [facility] ([facility]) QuantiFERON Nil Value 0.03 IU/ml Normal (applies to non-nu meric results) [facility] ([facility]) QuantiFERON-TB Gold Plus Laboratory test result Normal (applies to non-numeric results) [facility] ([facility]) The specimen received for QuantiFERON te sting was incubated by the ordering institution. Specific procedures outlined in our Directory of Services and in the package insert for the QuantiFERON Gold (In Tube) test must be followed to enable for proper stimulation of cells for the production of interferon gamma. Chemiluminescence immunoassay methodology Performed at: RN - [facility] [address] [id number] Parts Counterperson: Galina Spence MD, Phone: [phone] ID Date Data Source [id number] 02/15/2021 11:18:00 AM EDT [facility] ([facility]) Name Value Range Interpretation Code Description Data Cora rce(s) Supporting Document(s) Monitr Crohn's Disease Laboratory test result No rmal (applies to non-numeric results) [facility] ([facility]) SEE SEPARATE REPORT Testing performed at reference lab . Report copy to follow on a separate form. 02/21/21 REF LAB#:[id number] ID Date Data Source [id number] 02/15/2021 11:18:00 AM EDT [facility] ([facility]) Name Value Range Interpretation Code Description Data Cora rce(s) Supporting Document(s) Iron (Fe) 55 ug/dL 50-170 Normal (applies to non-numeric resul ts) [facility] ([facility]) Percent Saturation 11.6 % 13.2-45.0 Below low normal [facility] ([facility]) Total Iron Binding Capacity 473 ug/dL 250-450 Above high normal [facility] ([facility]) ID Date Data Source [id number] 02/15/2021 11:18:00 AM EDT [facility] ([facility]) Name Value Range Interpretation Code Description Data Cora rce(s) Supporting Document(s) Erythrocyte sedimentation rate by Westergren method 27 mm/hr 0-20 Above high normal [facility] ([facility]) C reactive protein [Mass/volume] in Serum or Plasma by High sensitivity method 1.18 mg/dL 0.00-0.30 Above high normal [facility] ([facility]) <content>note:<nlbl:demographic_changed> </content>
<content></content> ID Date Data Source [id number] 02/15/2021 11:18:00 AM EDT [facility] ([facility]) Name Value Range Interpretation Code Description Data Cora rce(s) Supporting Document(s) Creatinine For GFR 0.67 mg/dL 0.55-1.30 Normal (applies to non -numeric results) [facility] ([facility]) Glomerular Filtration Rate Laboratory test result Normal (applies to non- numeric results) [facility] ([facility]) <content>Units are mL/min/1.73 m2</content>
<content></content>
<content>Chronic Kidney Disease Staging per NKF:</content>
<content></content>
<content>Stage I & II GFR >=60 Normal to Mildly Decreased</content>
<content>Stage III GFR 30- 59 Moderately Decreased</content>
<content>Stage IV GFR 15-29 Severely Decreased</content>
<content>Stage V GFR <15 Very Little GFR Left</content>
<content>ESRD GFR <15 on AMPOULE W[employer]ING MACHINE OPERATOR</content>
<content></content> ID Date Data Source [id number] 02/15/2021 11:18:00 AM EDT [facility]) Name Value Range Interpretation Code Description Data Cora rce(s) Supporting Document(s) Urea nitrogen [Mass/volume] in Serum or Plasma 8 mg/dL 7 -18 Normal (applies to non-numeric results) [facility] ([facility]) <content>note:<nlbl:demographic_changed> </content>
<content></content> ID Date Data Source [id number] 02/15/2021 11:18:00 AM EDT [facility] ([facility]) Name Value Range Interpretation Code Description Data Cora rce(s) Supporting Document(s) Alt/SGPT 16 U/L 12-78 Normal (applies to non-numeric resul ts) [facility] ([facility]) Ast/Sgot 13 U/L 7-37 Normal (applies to non-numeric resul ts) [facility] ([facility]) Bilirubin,Direct Laboratory test result 0.0-0.2 Normal ( applies to non-numeric results) [facility] ([facility]) Alkaline Phosphatase 136 U/L 45-117 Above high normal [facility] ([facility]) Bilirubin,Total 0.2 mg/dL 0.2-1.0 Normal (applies to non-numeric results) [facility] ([facility]) Albumin 3.3 GM/DL 3.2-5.2 Normal (applies to non-numeric resul ts) [facility] ([facility]) Total Protein 7.0 GM/DL 6.4-8.2 Normal (applies to non-numeric re sults) [facility] ([facility]) Albumin/Globulin Ratio 0.9 1.2-2.2 Below low normal [facility] ([facility]) ID Date Data Source [id number] 02/15/2021 11:18:00 AM EDT [facility] ([facility]) Name Value Range Interpretation Code Description Data Cora rce(s) Supporting Document(s) White Blood Count 5.5 10 4.0-10.0 Normal (applies to non-numeri c results) [facility], ) Red Blood Count 4.73 10 4.00-5.40 Normal (applies to non-numeric results) [facility] ([facility], ) Hemoglobin 12.0 g/dL 12.0-15.5 Normal (applies to non-numeric resul ts) [facility]) Hematocrit 38.2 % 36.0-47.0 Normal (applies to non-numeric resul ts) [facility] ([facility]) Mean Corpuscular Volume 80.8 fl 80.0-96.0 Normal ( applies to non-numeric results) [facility] ([facility]) Mean Corpuscular Hemoglobin 25.4 pg 27.0-33.0 Below low normal [facility] ([facility]) Red Cell Distribution Width 14.1 % 11.5-14.5 Norm al (applies to non-numeric results) [facility] ([facility]) Mean Corpuscular HGB Conc 31.4 g/dL 32.0-36.5 Below low normal [facility] ([facility]) Neutrophils % 61.3 % 36.0-66.0 Normal (applies to non-numeric re sults) [facility]) Platelet Count, Automated 309 10 150-450 Normal (applies to non-numeric results) [facility], ) Eos % 2.6 % 0.0-3.0 Normal (applies to non-numeric resul ts) [facility] ([facility], ) Lymph % 28.8 % 24.0-44.0 Normal (applies to non-numeric resul ts) [facility]) [place] % 6.6 % 2.0-8.0 Normal (applies to non-numeric resul ts) [facility]) Baso % 0.5 % 0.0-1.0 Normal (applies to non-numeric resul ts) [facility]) Immature Granulocyte % 0.2 % 0-3.0 Normal (applies to non-n umeric results) [facility]) Lymph # 1.6 10 1.5-5.0 Normal (applies to non-numeric resul ts) [facility] ([facility]) Nucleated Red Blood Cell % 0.0 % 0-0 Normal (applies to n on-numeric results) [facility] ([facility]) Neutrophils # 3.4 10 1.5-8.5 Normal (applies to non-numeric re sults) [facility] ([facility]) [place] # 0.4 10 0.0-0.8 Normal (applies to non-numeric resul ts) [facility] ([facility]) Eos # 0.1 10 0.0-0.5 Normal (applies to non-numeric resul ts) [facility] ([facility]) Baso # 0.0 10 0.0-0.2 Normal (applies to non-numeric resul ts) [facility] ([facility]) Procedure Social History Code Duration Value Status Description Data Source(s ) Smoking 10/13/2021 08:15:06 PM EST Never smoked tobacco (findi ng) completed Never smoked tobacco (finding) JORY (Rex Fontaine [facility]) Smoking 09/27/2021 12:00:00 AM EST Never Smoker completed Never S moker eCW1 ([facility]) Smoking 09/27/2021 12:00:00 AM EST Never Smoker completed Never S moker eCW1 ([facility]) Smoking 09/27/2021 12:00:00 AM EST Never Smoker completed Never S moker eCW1 ([facility]) Smoking 09/10/2021 10:21:14 AM EDT Never smoked tobacco (findi ng) completed Never smoked tobacco (finding) JORY (Rex Fontaine MD [facility]) Smoking 09/01/2021 12:00:00 AM EDT Never Smoker completed Never S moker eCW1 ([facility]) Smoking 06/07/2021 12:00:00 AM EDT Never Smoker completed Never S moker eCW1 ([facility]) Smoking 06/07/2021 12:00:00 AM EDT Never Smoker completed Never S moker eCW1 ([facility]) Smoking 06/07/2021 12:00:00 AM EDT Never Smoker completed Never S moker eCW1 ([facility]) Smoking 06/07/2021 12:00:00 AM EDT Never Smoker completed Never S moker eCW1 ([facility]) Smoking 06/07/2021 12:00:00 AM EDT Never Smoker completed Never S moker eCW1 ([facility]) Smoking 06/07/2021 12:00:00 AM EDT Never Smoker completed Never S moker eCW1 ([facility]) Smoking 06/07/2021 12:00:00 AM EDT Never Smoker completed Never S moker eCW1 ([facility]) Smoking 06/07/2021 12:00:00 AM EDT Never Smoker completed Never S moker eCW1 ([facility]) Smoking 06/07/2021 12:00:00 AM EDT Never Smoker completed Never S moker eCW1 ([facility]) Smoking 06/07/2021 12:00:00 AM EDT Never Smoker completed Never S moker eCW1 ([facility]) Smoking 06/01/2021 12:18:28 PM EDT Never smoked tobacco (arielai ng) completed Never smoked tobacco (finding) JORY (Rex Fontaine MD [facility]) Smoking 05/26/2021 12:00:00 AM EDT Patient has never smoked co mpleted Patient has never smoked [facility] ([facility]) Smoking 05/18/2021 12:00:00 AM EDT Never Smoker completed Never S moker eCW1 ([facility]) Smoking 04/14/2021 12:00:00 AM EDT Never Smoker completed Never S moker eCW1 ([facility]) Smoking 04/14/2021 12:00:00 AM EDT Never Smoker completed Never S moker eCW1 ([facility]) Smoking 04/14/2021 12:00:00 AM EDT Never Smoker completed Never S moker eCW1 ([facility]) Smoking 04/06/2021 12:00:00 AM EDT Never Smoker completed Never S moker eCW1 ([facility]) Smoking 03/17/2021 12:00:00 AM EDT Never Smoker completed Never S moker eCW1 ([facility]) Smoking 03/17/2021 12:00:00 AM EDT Never Smoker completed Never S moker eCW1 ([facility]) Smoking 02/24/2021 12:00:00 AM EDT Never Smoker completed Never S moker eCW1 ([facility]) Smoking 02/24/2021 12:00:00 AM EDT Never Smoker completed Never S moker eCW1 ([facility]) Smoking 02/24/2021 12:00:00 AM EDT Patient has never smoked co mpleted Patient has never smoked MEDENT ([facility]) Smoking 08/31/2020 12:00:00 AM EDT Never Smoker completed Never S moker eCW1 ([facility]) Smoking 08/31/2020 12:00:00 AM EDT Never Smoker completed Never S moker eCW1 ([facility]) Smoking 08/31/2020 12:00:00 AM EDT Never Smoker completed Never S moker eCW1 ([facility]) Smoking 08/31/2020 12:00:00 AM EDT Never Smoker completed Never S moker eCW1 ([facility]) Smoking 08/31/2020 12:00:00 AM EDT Never Smoker completed Never S moker eCW1 ([facility]) Smoking 08/31/2020 12:00:00 AM EDT Never Smoker completed Never S moker eCW1 ([facility]) Smoking 08/31/2020 12:00:00 AM EDT Never Smoker completed Never S moker eCW1 ([facility]) Smoking 08/31/2020 12:00:00 AM EDT Never Smoker completed Never S moker eCW1 ([facility]) Smoking 08/31/2020 12:00:00 AM EDT Never Smoker completed Never S moker eCW1 ([facility]) Smoking 08/31/2020 12:00:00 AM EDT Never Smoker completed Never S moker eCW1 ([facility]) Smoking 08/31/2020 12:00:00 AM EDT Never Smoker completed Never S moker eCW1 ([facility]) Vital Signs ID Date Data Source UNK Name Value Range Interpretation Code Description Data Source(s) Body weight 176.8 [lb_av] 176.8 [lb_av] eCW1 ([facility]) Body weight 80.2 kg 80.2 kg eCW1 ([facility]) Body height 59 [in_i] 59 [in_i] eCW1 ([facility]) Body mass index (BMI) [Ratio] 35.71 kg/m2 35.71 kg/m2 eCW1 ([facility]) Systolic blood pressure 122 mm[Hg] 122 mm[Hg] e CW1 ([facility]) Diastolic blood pressure 84 mm[Hg] 84 mm[Hg] eCW1 ([facility]) Body weight 175.4 [lb_av] 175.4 [lb_av] eCW1 ([facility]) Body weight 79.56 kg 79.56 kg eCW1 ([facility]) Body height 59 [in_i] 59 [in_i] eCW1 ([facility]) Body mass index (BMI) [Ratio] 35.42 kg/m2 35.42 kg/m2 W1 ([facility]) Heart rate 95 /min 95 /min eCW1 ([facility]) Respiratory rate 18 /min 18 /min eCW1 ([facility]) Body temperature 98.6 [degF] 98.6 [degF] eCW1 ( [facility]) Systolic blood pressure 142 mm[Hg] 142 mm[Hg] e CW1 ([facility]) Diastolic blood pressure 83 mm[Hg] 83 mm[Hg] eCW1 ([facility]) Body weight 165.6 [lb_av] 165.6 [lb_av] eCW1 ([facility]) Body height 59 [in_i] 59 [in_i] eCW1 ([facility]) Body mass index (BMI) [Ratio] 33.44 kg/m2 33.44 kg/m2 eCW1 ([facility]) Heart rate 100 /min 100 /min eCW1 ([facility]) Diastolic blood pressure 74 mm[Hg] 74 mm[Hg] eCW1 ([facility]) Respiratory rate 16 /min 16 /min eCW1 ([facility]) Body temperature 98.9 [degF] 98.9 [degF] eCW1 ( [facility]) Systolic blood pressure 119 mm[Hg] 119 mm[Hg] e CW1 ([facility]) Respiratory rate 16 /min 16 /min [facility] ( [facility]) Heart rate 130 /min 130 /min [facility] ([facility] Systolic blood pressure 110 mm[Hg] 110 mm[Hg] M EDENT ([facility]) left arm Diastolic blood pressure 78 mm[Hg] 78 mm[Hg] [facility] ([facility]) left arm Body height 59.5 [in_i] 59.5 [in_i] [facility] ([facility]) 4'11.50" Body weight 165.00 [lb_av] 165.00 [lb_av] MEDEN T ([facility]) Body temperature 98.8 [degF] 98.8 [degF] [facility] ([facility]) Oxygen saturation in Arterial blood by Pulse oximetry 98 % 98 % [facility] ([facility]) Body mass index (BMI) [Ratio] 32.8 kg/m2 32.8 k g/m2 [facility] ([facility]) Body weight 165 [lb_av] 165 [lb_av] eCW1 ([facility]) Body height 59 [in_i] 59 [in_i] eCW1 ([facility]) Body mass index (BMI) [Ratio] 33.32 kg/m2 33.32 kg/m2 eCW1 ([facility]) Heart rate 90 /min 90 /min eCW1 ([facility]) Respiratory rate 18 /min 18 /min eCW1 ([facility]) Body temperature 96.8 [degF] 96.8 [degF] eCW1 ( [facility]) Systolic blood pressure 110 mm[Hg] 110 mm[Hg] e CW1 ([facility]) Diastolic blood pressure 76 mm[Hg] 76 mm[Hg] eCW1 ([facility]) Body weight 164 [lb_av] 164 [lb_av] eCW1 ([facility]) Body height 59 [in_i] 59 [in_i] eCW1 ([facility]) Body mass index (BMI) [Ratio] 33.12 kg/m2 33.12 kg/m2 eCW1 ([facility]) Heart rate 86 /min 86 /min eCW1 ([facility]) Respiratory rate 18 /min 18 /min eCW1 ([facility]) Body temperature 98.8 [degF] 98.8 [degF] eCW1 ( [facility]) Systolic blood pressure 111 mm[Hg] 111 mm[Hg] e CW1 ([facility]) Diastolic blood pressure 76 mm[Hg] 76 mm[Hg] eCW1 ([facility]) Body weight 163 [lb_av] 163 [lb_av] eCW1 ([facility]) Body height 59 [in_i] 59 [in_i] eCW1 ([facility]) Body mass index (BMI) [Ratio] 32.92 kg/m2 32.92 kg/m2 eCW1 ([facility]) Body temperature 97.0 [degF] 97.0 [degF] eCW1 ( [facility]) Systolic blood pressure 126 mm[Hg] 126 mm[Hg] e CW1 ([facility]) Diastolic blood pressure 76 mm[Hg] 76 mm[Hg] eCW1 ([facility]) Respiratory rate 18 /min 18 /min eCW1 ([facility]) Body weight 164 [lb_av] 164 [lb_av] eCW1 ([facility]) Body height 59 [in_i] 59 [in_i] eCW1 ([facility]) Body mass index (BMI) [Ratio] 33.12 kg/m2 33.12 kg/m2 eCW1 ([facility]) Heart rate 83 /min 83 /min eCW1 ([facility]) Body temperature 98.4 [degF] 98.4 [degF] eCW1 ( [facility]) Systolic blood pressure 118 mm[Hg] 118 mm[Hg] e CW1 ([facility]) Diastolic blood pressure 68 mm[Hg] 68 mm[Hg] eCW1 ([facility]) Diastolic blood pressure 68 mm[Hg] 68 mm[Hg] eCW1 ([facility]) Body weight 164 [lb_av] 164 [lb_av] eCW1 ([facility]) Body height 59 [in_i] 59 [in_i] eCW1 ([facility]) Body mass index (BMI) [Ratio] 33.12 kg/m2 33.12 kg/m2 eCW1 ([facility]) Systolic blood pressure 120 mm[Hg] 120 mm[Hg] e CW1 ([facility]) Body mass index (BMI) [Ratio] 33.00 kg/m2 33.00 kg/m2 eCW1 ([facility]) Body weight 163.4 [lb_av] 163.4 [lb_av] eCW1 ([facility]) Body height 59 [in_i] 59 [in_i] eCW1 ([facility]) Heart rate 84 /min 84 /min eCW1 ([facility]) Respiratory rate 18 /min 18 /min eCW1 ([facility]) Body temperature 98 [degF] 98 [degF] eCW1 ([facility]) Systolic blood pressure 129 mm[Hg] 129 mm[Hg] e CW1 ([facility]) Diastolic blood pressure 87 mm[Hg] 87 mm[Hg] eCW1 ([facility]) Body weight 163.00 [lb_av] 163.00 [lb_av] NIYAH T ([facility], ) Body height 59 [in_i] 59 [in_i] SAVANAH ([facility], ) 4'11" Body mass index (BMI) [Ratio] 32.9 kg/m2 32.9 k g/m2 [facility] ([facility]) [place] body weight 100 [lb_av] 100 [lb_av] MEDEN T ([facility]) Body weight 73.937 kg 73.937 kg MED[facility] ([facility]) Body surface area Derived from formula 1.69 m2 1.69 m2 [facility] ([facility]) Systolic blood pressure 116 mm[Hg] 116 mm[Hg] M EDENT ([facility]) Diastolic blood pressure 70 mm[Hg] 70 mm[Hg] [facility] ([facility]) Respiratory rate 16 /min 16 /min [facility] ( [facility]) Systolic blood pressure 106 mm[Hg] 106 mm[Hg] M EDENT ([facility]) left arm Diastolic blood pressure 70 mm[Hg] 70 mm[Hg] [facility] ([facility]) left arm Body height 59.5 [in_i] 59.5 [in_i] [facility] ([facility]) 4'11.50" Body weight 164.25 [lb_av] 164.25 [lb_av] MEDEN T ([facility]) Body temperature 97.9 [degF] 97.9 [degF] [facility] ([facility]) Oxygen saturation in Arterial blood by Pulse oximetry 97 % 97 % [facility] ([facility]) Body mass index (BMI) [Ratio] 32.6 kg/m2 32.6 k g/m2 [facility] ([facility]) Heart rate 97 /min 97 /min [facility] ([facility] Body weight 152.0 [lb_av] 152.0 [lb_av] eCW1 ([facility]) Body height 59 [in_i] 59 [in_i] W1 ([facility]) Body mass index (BMI) [Ratio] 30.70 kg/m2 30.70 kg/m2 eCW1 ([facility]) Systolic blood pressure 116 mm[Hg] 116 mm[Hg] e CW1 ([facility]) Diastolic blood pressure 74 mm[Hg] 74 mm[Hg] eCW1 ([facility]) Systolic blood pressure 110 mm[Hg] 110 mm[Hg] e CW1 ([facility]) Body temperature 98.1 [degF] 98.1 [degF] eCW1 ( [facility]) Diastolic blood pressure 72 mm[Hg] 72 mm[Hg] eCW1 ([facility]) Body weight 151 [lb_av] 151 [lb_av] eCW1 ([facility]) Body height 59 [in_i] 59 [in_i] eCW1 ([facility]) Body mass index (BMI) [Ratio] 30.49 kg/m2 30.49 kg/m2 eCW1 ([facility]) Heart rate 88 /min 88 /min eCW1 ([facility]) Respiratory rate 18 /min 18 /min eCW1 ([facility]) Respiratory rate 16 /min 16 /min [facility] ( [facility]) Heart rate 84 /min 84 /min [facility] ([facility] Systolic blood pressure 110 mm[Hg] 110 mm[Hg] M EDENT ([facility]) Diastolic blood pressure 80 mm[Hg] 80 mm[Hg] [facility] ([facility]) Body height 59.5 [in_i] 59.5 [in_i] [facility] ([facility]) 4'11.50" Body weight 152.12 [lb_av] 152.12 [lb_av] MEDEN T ([facility]) Oxygen saturation in Arterial blood by Pulse oximetry 98 % 98 % [facility] ([facility]) Body mass index (BMI) [Ratio] 30.2 kg/m2 30.2 k g/m2 [facility] ([facility]) Patient Treatment Plan of Care Planned Activity Planned Date Details Description Data Source (s) Mupirocin 0.02 MG/MG Topical Ointment 09/27/2021 12:00:00 AM EST eCW1 ([facility]) Mupirocin 0.02 MG/MG Topical Ointment 09/27/2021 12:00:00 AM EST eCW1 ([facility]) Mupirocin 0.02 MG/MG Topical Ointment 09/27/2021 12:00:00 AM EST eCW1 ([facility]) venlafaxine 75 MG Oral Tablet 06/07/2021 12:00:00 AM EDT eCW1 ([facility]) venlafaxine 75 MG Oral Tablet 06/07/2021 12:00:00 AM EDT eCW1 ([facility]) venlafaxine 75 MG Oral Tablet 06/07/2021 12:00:00 AM EDT eCW1 ([facility]) venlafaxine 75 MG Oral Tablet 06/07/2021 12:00:00 AM EDT eCW1 ([facility]) venlafaxine 75 MG Oral Tablet 06/07/2021 12:00:00 AM EDT eCW1 ([facility]) venlafaxine 75 MG Oral Tablet 06/07/2021 12:00:00 AM EDT eCW1 ([facility]) venlafaxine 75 MG Oral Tablet 06/07/2021 12:00:00 AM EDT eCW1 ([facility]) venlafaxine 75 MG Oral Tablet 06/07/2021 12:00:00 AM EDT eCW1 ([facility]) venlafaxine 75 MG Oral Tablet 06/07/2021 12:00:00 AM EDT eCW1 ([facility]) venlafaxine 75 MG Oral Tablet 06/07/2021 12:00:00 AM EDT eCW1 ([facility]) Alprazolam 0.25 MG Oral Tablet 04/14/2021 12:00:00 AM EDT eCW1 ([facility]) venlafaxine 37.5 MG Oral Tablet 04/14/2021 12:00:00 AM EDT eCW1 ([facility]) Alprazolam 0.25 MG Oral Tablet 04/14/2021 12:00:00 AM EDT eCW1 ([facility]) venlafaxine 37.5 MG Oral Tablet 04/14/2021 12:00:00 AM EDT eCW1 ([facility]) Alprazolam 0.25 MG Oral Tablet 04/14/2021 12:00:00 AM EDT eCW1 ([facility]) venlafaxine 37.5 MG Oral Tablet 04/14/2021 12:00:00 AM EDT eCW1 ([facility]) Clindamycin 10 MG/ML Topical Lotion 02/24/2021 12:00:00 AM EDT eCW1 ([facility]) Clobetasol Propionate 0.0005 MG/MG Topical Ointment 02/25/20 12:00:00 AM EDT eCW1 ([facility]) Clindamycin 10 MG/ML Topical Lotion 02/24/2021 12:00:00 AM EDT eCW1 ([facility]) Clobetasol Propionate 0.0005 MG/MG Topical Ointment 02/25/20 12:00:00 AM EDT eCW1 ([facility]) 24 HR Oxybutynin chloride 15 MG Extended Release Oral Tablet 02/23/2021 12:00:00 AM EDT eCW1 ([facility]) 24 HR Oxybutynin chloride 15 MG Extended Release Oral Tablet 02/23/2021 12:00:00 AM EDT eCW1 ([facility]) 24 HR Oxybutynin chloride 15 MG Extended Release Oral Tablet 02/23/2021 12:00:00 AM EDT eCW1 ([facility]) 24 HR Oxybutynin chloride 15 MG Extended Release Oral Tablet 02/23/2021 12:00:00 AM EDT eCW1 ([facility]) 24 HR Oxybutynin chloride 15 MG Extended Release Oral Tablet 02/23/2021 12:00:00 AM EDT eCW1 ([facility]) 24 HR Oxybutynin chloride 15 MG Extended Release Oral Tablet 02/23/2021 12:00:00 AM EDT eCW1 ([facility]) 24 HR Oxybutynin chloride 15 MG Extended Release Oral Tablet 02/23/2021 12:00:00 AM EDT eCW1 ([facility]) 24 HR Oxybutynin chloride 15 MG Extended Release Oral Tablet 02/23/2021 12:00:00 AM EDT eCW1 ([facility]) 24 HR Oxybutynin chloride 15 MG Extended Release Oral Tablet 02/23/2021 12:00:00 AM EDT eCW1 ([facility]) 24 HR Oxybutynin chloride 15 MG Extended Release Oral Tablet 02/23/2021 12:00:00 AM EDT eCW1 ([facility]) 24 HR Oxybutynin chloride 15 MG Extended Release Oral Tablet 02/23/2021 12:00:00 AM EDT eCW1 ([facility]) [facility] - 01/04/2021 12:00:00 AM EST e CW1 ([facility]) [facility] - 01/04/2021 12:00:00 AM EST e CW1 ([facility]) [facility] - 01/03/2021 12:00:00 AM EST eCW1 ([facility]) [facility] - 01/03/2021 12:00:00 AM EST eCW1 ([facility]) [facility] - 01/03/2021 12:00:00 AM EST eCW1 ([facility]) [facility] - 01/03/2021 12:00:00 AM EST eCW1 ([facility]) Hydroxyzine Hydrochloride 25 MG Oral Tablet 11/22/2020 12:00:00 AM EST eCW1 ([facility]) Hydroxyzine Hydrochloride 25 MG Oral Tablet 11/22/2020 12:00:00 AM EST eCW1 ([facility]) Hydroxyzine Hydrochloride 25 MG Oral Tablet 11/22/2020 12:00:00 AM EST eCW1 ([facility]) Hydroxyzine Hydrochloride 25 MG Oral Tablet 11/22/2020 12:00:00 AM EST eCW1 ([facility]) Hydroxyzine Hydrochloride 25 MG Oral Tablet 11/22/2020 12:00:00 AM EST eCW1 ([facility]) Hydroxyzine Hydrochloride 25 MG Oral Tablet 11/22/2020 12:00:00 AM EST eCW1 ([facility]) Hydroxyzine Hydrochloride 25 MG Oral Tablet 11/22/2020 12:00:00 AM EST eCW1 ([facility]) Hydroxyzine Hydrochloride 25 MG Oral Tablet 11/22/2020 12:00:00 AM EST eCW1 ([facility]) Hydroxyzine Hydrochloride 25 MG Oral Tablet 11/22/2020 12:00:00 AM EST eCW1 ([facility]) Hydroxyzine Hydrochloride 25 MG Oral Tablet 11/22/2020 12:00:00 AM EST eCW1 ([facility]) Hydroxyzine Hydrochloride 25 MG Oral Tablet 11/22/2020 12:00:00 AM EST eCW1 ([facility]) Hydroxyzine Hydrochloride 25 MG Oral Tablet 11/22/2020 12:00:00 AM EST eCW1 ([facility]) Hydroxyzine Hydrochloride 25 MG Oral Tablet 11/22/2020 12:00:00 AM EST eCW1 ([facility]) Hydroxyzine Hydrochloride 25 MG Oral Tablet 11/22/2020 12:00:00 AM EST eCW1 ([facility]) Hydroxyzine Hydrochloride 25 MG Oral Tablet 11/22/2020 12:00:00 AM EST eCW1 ([facility]) Enskyce 0.15-30 MG-MCG 11/09/2020 12:00:00 AM EST eCW1 ([facility]) Enskyce 0.15-30 MG-MCG 11/09/2020 12:00:00 AM EST eCW1 ([facility]) Enskyce 0.15-30 MG-MCG 11/09/2020 12:00:00 AM EST eCW1 ([facility]) Enskyce 0.15-30 MG-MCG 11/09/2020 12:00:00 AM EST eCW1 ([facility]) Enskyce 0.15-30 MG-MCG 11/09/2020 12:00:00 AM EST eCW1 ([facility]) Enskyce 0.15-30 MG-MCG 11/09/2020 12:00:00 AM EST eCW1 ([facility]) Enskyce 0.15-30 MG-MCG 11/09/2020 12:00:00 AM EST eCW1 ([facility]) Enskyce 0.15-30 MG-MCG 11/09/2020 12:00:00 AM EST eCW1 ([facility]) Fluconazole 150 MG Oral Tablet 09/14/2020 12:00:00 AM EST eCW1 ([facility]) Fluconazole 150 MG Oral Tablet 09/14/2020 12:00:00 AM EST eCW1 ([facility]) Fluconazole 150 MG Oral Tablet 09/14/2020 12:00:00 AM EST eCW1 ([facility]) Fluconazole 150 MG Oral Tablet 09/14/2020 12:00:00 AM EST eCW1 ([facility]) Fluconazole 150 MG Oral Tablet 09/14/2020 12:00:00 AM EST eCW1 ([facility]) Fluconazole 150 MG Oral Tablet 09/14/2020 12:00:00 AM EST eCW1 ([facility]) Fluconazole 150 MG Oral Tablet 09/14/2020 12:00:00 AM EST eCW1 ([facility]) Fluconazole 150 MG Oral Tablet 09/14/2020 12:00:00 AM EST eCW1 ([facility]) Fluconazole 150 MG Oral Tablet 09/14/2020 12:00:00 AM EST eCW1 ([facility]) Keflex 500 MG 08/31/2020 12:00:00 AM EDT eCW1 ([facility]) Cephalexin 500 MG Oral Capsule [Keflex] 08/31/2020 12:00:00 AM EDT eCW1 ([facility]) Triamcinolone Acetonide 1 MG/ML Topical Cream 08/31/2020 12:00:00 A M EDT eCW1 ([facility]) Triamcinolone Acetonide 1 MG/ML Topical Cream 08/31/2020 12:00:00 A M EDT eCW1 ([facility]) Keflex 500 MG 08/31/2020 12:00:00 AM EDT eCW1 ([facility]) Triamcinolone Acetonide 1 MG/ML Topical Cream 08/31/2020 12:00:00 A M EDT eCW1 ([facility]) Triamcinolone Acetonide 1 MG/ML Topical Cream 08/31/2020 12:00:00 A M EDT eCW1 ([facility]) Keflex 500 MG 08/31/2020 12:00:00 AM EDT eCW1 ([facility]) Triamcinolone Acetonide 1 MG/ML Topical Cream 08/31/2020 12:00:00 A M EDT eCW1 ([facility]) Cephalexin 500 MG Oral Capsule [Keflex] 08/31/2020 12:00:00 AM EDT eCW1 ([facility]) Cephalexin 500 MG Oral Capsule [Keflex] 08/31/2020 12:00:00 AM EDT eCW1 ([facility]) Triamcinolone Acetonide 1 MG/ML Topical Cream 08/31/2020 12:00:00 A M EDT eCW1 ([facility]) Cephalexin 500 MG Oral Capsule [Keflex] 08/31/2020 12:00:00 AM EDT eCW1 ([facility]) Triamcinolone Acetonide 1 MG/ML Topical Cream 08/31/2020 12:00:00 A M EDT eCW1 ([facility]) Cephalexin 500 MG Oral Capsule [Keflex] 08/31/2020 12:00:00 AM EDT eCW1 ([facility]) Triamcinolone Acetonide 1 MG/ML Topical Cream 08/31/2020 12:00:00 A M EDT eCW1 ([facility]) Cephalexin 500 MG Oral Capsule [Keflex] 08/31/2020 12:00:00 AM EDT eCW1 ([facility]) Triamcinolone Acetonide 1 MG/ML Topical Cream 08/31/2020 12:00:00 A M EDT eCW1 ([facility]) Cephalexin 500 MG Oral Capsule [Keflex] 08/31/2020 12:00:00 AM EDT eCW1 ([facility]) Triamcinolone Acetonide 1 MG/ML Topical Cream 08/31/2020 12:00:00 A M EDT eCW1 ([facility]) Cephalexin 500 MG Oral Capsule [Keflex] 08/31/2020 12:00:00 AM EDT eCW1 ([facility]) Triamcinolone Acetonide 1 MG/ML Topical Cream 08/31/2020 12:00:00 A M EDT eCW1 ([facility])
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
[2021-10-17] MEDS ORDERED: NORCO, ANEXSIA 5/325MG TABLET (HYDROcodone/ACETAMINOPHEN) PO ONE (19:50)
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
[2021-10-17] MEDS ORDERED: NORCO 5/325MG TABLET (BULK FOR ED) PO ONE (20:35)
[2021-10-17 20:55] VITALS: BP 118/72
--- OUTSIDE RECORDS SUMMARY | 2021-10-17 20:56 | CCD ---
Author Author [facility] Organization [facility] Address Unknown Phone Unavailable Care Team Providers Care Carbonation Equipment Operator Name Role Phone Kathryn Fontaine, Kulwinder Goodman [...] Zhen, Kulwinder Goodman MD, FACS Unavailable Unavailable Kathryn Fontaine, Kulwinder Goodman MD, FACS Unavailable Unavailable Peralta Zhen, Kulwinder Goodman MD, FACS Unavailable Unavailable Peralta Zhen, Kulwinedr Goodman MD, FACS Unavailable Unavailable Peralta Fontaine, [...] Unavailable Unavailable Trae SOMMER MD Unavailable Unavailable rTae SOMMER MD Unavailable Unavailable Trae SOMMER MD [...] MIGUEL, [facility] Unavailable Unavailable MGIU[facility], [facility] Unavailable Unavailable MIGUEL, [...] MIGUEL, J [facility] Unavailable Unavailable TAMIA, [...] is protected by Article 27-F of the [facility] Public Health law. If you continue you may have access to information: Regarding HIV / AIDS; Provided by facilities licensed or operated by the [facility] Office of Mental Health; or Provided by the [facility] Office for People With Developmental Disabilities. If such information is present, then the following [facility] mandated warning applies: This information has [...] law may result in a fine or [place] health [place] sentence or both. A general authorization for the release of medical or other information is NOT sufficient authorization for further disc losure. Allergies and Adverse Reactions Type Description Substance Reaction Status Data Source(s ) Allergy to substance No Known Allergies No known allergies (situation ) JORY (Rex Fontaine MD [facility]) Allergy to substance No Known Allergies No known allergies (situation ) JORY (Rex Fontaine MD [facility]) Allergy to substance No Known Allergies No known allergies (situation ) [place]AM[place] (Rex Fontaine MD [facility]) No Known Drug Allergies No Known Drug Allergies [facility] Family History Family Member Name Family Member Gender Family Member Status Date o f Status Description Data Source(s) Unknown Unknown Problem MEDENT ([facility]) Unknown Female Problem [facility] ([facility] Unknown Female Problem MEDENT ([facility] Encounters Encounter Providers Location Date Indications Data Source(s ) [place] [address] [address] 10/14/2021 12:00:00 AM EST [facility] [place] [address] [facility] [place] [address] 10/14/2021 12:00:00 AM EST [facility] [place] [address] [address] 09/27/2021 12:00:00 AM EST [facility]CW1 [facility]) Outpatient [address] [facility] [place] [address] 09/01/2021 12:00:00 AM EDT [facility]CW1 [facility] [place] [place] [address] [facility] [place] [address] 08/24/2021 12:00:00 AM EDT eCW1 [facility]) [place] [address] [address] 08/21/2021 12:00:00 AM EDT eCW1 [facility]) Unknown [address] [facility] [place] [address] 08/16/2021 12:00:00 AM EDT eCW1 ([facility] [place] [address] [address] 08/16/2021 12:00:00 AM EDT eCW1 [facility] [place] [address] [address] 07/30/2021 12:00:00 AM EDT eCW1 ([facility] [place] [address] [address] 06/24/2021 12:00:00 AM EDT eCW1 ([facility] [place] [place] [address] [address] 06/19/2021 12:00:00 AM EDT eCW1 ([facility] [place] [address] [address] 06/14/2021 12:00:00 AM EDT eCW1 ([facility]) [place] [address] [address] 06/14/2021 12:00:00 AM EDT eCW1 ([facility]) [place] [address] [address] 06/07/2021 12:00:00 AM EDT eCW1 ([facility]) Outpatient<td ID="encounterTypeDescripti onID0">1 Year Follow-Up</td><td>Rex Nguyen MD, FACS</td><td>Rex Nguyen MD [facility]</td><td>06/01/2021</td><td>11:41AM</td><td>12:10PM</td><td><content ID="encounterDiagnosisID0-0">Congenital Ptosis</content>, <content ID="encounterDiagnosisID0-1">Conjunctivitis Chronic Allergic</content></td> Attender: Rex Fontaine MD, FACS Rex Nguyen MD [facility] 06/01/2021 11:41:0 0 AM EDT - 06/01/2021 12:10:00 PM EDT Congenital PtosisCongenital PtosisCongen ital PtosisConjunctivitis Chronic AllergicConjunctivitis Chronic AllergicConjunctivitis Chronic Allergic JORY (Rex Fontaine MD [facility]) 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 Chronic Allergic Conjunctivitis Chronic Allergic Conjunctivitis Chronic Allergic [place] [address] [address] 05/18/2021 12:00:00 AM EDT eCW1 ([facility] [place] [address] [address] 05/07/2021 12:00:00 AM EDT eCW1 ([facility] [place]) [place] [address] [address] 04/22/2021 12:00:00 AM EDT eCW1 ([facility] [place]) [place] [address] [address] 04/14/2021 12:00:00 AM EDT eCW1 ([facility]) [place] [address] [address] 04/06/2021 12:00:00 AM EDT eCW1 ([facility]) [place] [address] [address] 03/17/2021 12:00:00 AM EDT eCW1 [facility]) [place] [address] [address] 03/17/2021 12:00:00 AM EDT eCW1 ([facility] [place]) Outpatient Attender: [facility]OS RIVERA [facility] 02/24/2021 10:45:00 AM EDT MEDENT ([facility]) Outpatient Attender: RAMOS RIVERA DPM PCConsultant: ANTONIETTA MATA 02/24/2021 10:40:00 AM EDT - 02/24/2021 10:40:00 AM EDT [facility] [place]patient [address] [address] 02/24/2021 12:00:00 AM EDT eCW1 ([facility]) [place] [address] [address] 02/23/2021 12:00:00 AM EDT eCW1 ([facility]) Outpatient Attender: WILL Mckeon/William/Jorge garay/Reinmarsha 02/22/2021 01:30:00 PM EDT MEDENT ([facility]) [place] [address] [address] 01/09/2021 12:00:00 AM EST eCW1 ([facility]) [place] [address] [facility] [place] [address] 01/04/2021 12:00:00 AM EST eCW1 ([facility]) Unknown [address] [facility] [place] [address] 11/21/2020 12:00:00 AM EST eCW1 ([facility]) [place] [address] [address] 11/11/2020 12:00:00 AM EST eCW1 ([facility]) [place] [address] [address] 11/09/2020 12:00:00 AM EST eCW1 ([facility]) [place] [address] [address] 11/06/2020 12:00:00 AM EST eCW1 ([facility]) [place] [address] [address] 10/17/2020 12:00:00 AM EST eCW1 ([facility]) [place] [address] [address] 09/14/2020 12:00:00 AM EST eCW1 ([facility]) [place] [address] [facility] [place] [address] 09/12/2020 12:00:00 AM EDT eCW1 ([facility]) [place] [address] [address] 08/31/2020 12:00:00 AM EDT [facility] [address] [address] 08/25/2020 12:00:00 AM EDT [facility] Immunizations Vaccine Date Status Description Data Source(s) COVID-19 dose #2 given elsewhere Unspecified 03/14/2021 10:3 2:00 AM EDT completed [facility] COVID-19 dose #2 given elsewhere Unspecified 03/14/2021 10:3 2:00 AM EDT completed [facility] COVID-19 dose #2 given elsewhere Unspecified 03/14/2021 10:3 2:00 AM EDT completed [facility] COVID-19 dose #2 given elsewhere Unspecified 03/14/2021 10:3 2:00 AM EDT completed [facility]CW1 [facility] COVID-19 dose #2 given elsewhere Unspecified 03/14/2021 10:3 2:00 AM EDT completed [facility]CW1 [facility] COVID-19 dose #2 given elsewhere Unspecified 03/14/2021 10:3 2:00 AM EDT completed [facility]CW1 [facility] COVID-19 dose #2 given elsewhere Unspecified 03/14/2021 10:3 2:00 AM EDT completed [facility]CW1 [facility] COVID-19 dose #2 given elsewhere Unspecified 03/14/2021 10:3 2:00 AM EDT completed eCW1 [facility] COVID-19 dose #2 given elsewhere Unspecified 03/14/2021 10:3 2:00 AM EDT completed [facility]CW[facility] COVID-19 dose #2 given elsewhere Unspecified 03/14/2021 10:3 2:00 AM EDT completed [facility] COVID-19 dose #2 given elsewhere Unspecified 03/14/2021 10:3 2:00 AM EDT completed eCW1 [facility] COVID-19 dose #2 given elsewhere Unspecified 03/14/2021 10:3 2:00 AM EDT completed eCW1 [facility] COVID-19 dose #2 given elsewhere Unspecified 03/14/2021 10:3 2:00 AM EDT completed eCW1 [facility] COVID-19 dose #2 given elsewhere Unspecified 03/14/2021 10:3 2:00 AM EDT completed [facility]CW1 [facility] COVID-19 dose #2 given elsewhere Unspecified 03/14/2021 10:3 2:00 AM EDT completed eCW1 [facility] COVID-19 dose #2 given elsewhere Unspecified 03/14/2021 10:3 2:00 AM EDT completed eCW1 [facility] COVID-19 dose #2 given elsewhere Unspecified 03/14/2021 10:3 2:00 AM EDT completed eCW1 [facility] COVID-19 dose #2 given elsewhere Unspecified 03/14/2021 10:3 2:00 AM EDT completed eCW1 [facility] COVID-19 dose #2 given elsewhere Unspecified 03/14/2021 10:3 2:00 AM EDT completed [facility]CW1 [facility] COVID-19 dose #2 given elsewhere Unspecified 03/14/2021 10:3 2:00 AM EDT completed [facility]CW[facility] COVID-19 dose #2 given elsewhere Unspecified 03/14/2021 10:3 2:00 AM EDT completed [facility] COVID-19 VACC,MRNA(MODERNA)/PF 03/14/2021 12:00:00 AM EDT completed [facility] COVID-19 VACCINE Moderna 03/14/2021 12:00:00 AM EDT completed [facility] Vaccine Series Complete: YESThis Data wa s Submitted to [facility] Via [employer]. COVID-19 dose #1 given elsewhere Unspecified 02/11/2021 10:3 2:00 AM EDT completed [facility] COVID-19 dose #1 given elsewhere Unspecified 02/11/2021 10:3 2:00 AM EDT completed [facility]CW1 [facility] COVID-19 dose #1 given elsewhere Unspecified 02/11/2021 10:3 2:00 AM EDT completed [facility]CW1 [facility] COVID-19 dose #1 given elsewhere Unspecified 02/11/2021 10:3 2:00 AM EDT completed [facility]CW[facility] COVID-19 dose #1 given elsewhere Unspecified 02/11/2021 10:3 2:00 AM EDT completed eCW1 [facility] COVID-19 dose #1 given elsewhere Unspecified 02/11/2021 10:3 2:00 AM EDT completed eCW1 [facility] COVID-19 dose #1 given elsewhere Unspecified 02/11/2021 10:3 2:00 AM EDT completed eCW1 [facility] COVID-19 dose #1 given elsewhere Unspecified 02/11/2021 10:3 2:00 AM EDT completed [facility]CW1 [facility] COVID-19 dose #1 given elsewhere Unspecified 02/11/2021 10:3 2:00 AM EDT completed eCW1 [facility]) COVID-19 dose #1 given elsewhere Unspecified 02/11/2021 10:3 2:00 AM EDT completed eCW1 [facility] COVID-19 dose #1 given elsewhere Unspecified 02/11/2021 10:3 2:00 AM EDT completed [facility]CW1 [facility] COVID-19 dose #1 given elsewhere Unspecified 02/11/2021 10:3 2:00 AM EDT completed eCW1 [facility]) COVID-19 dose #1 given elsewhere Unspecified 02/11/2021 10:3 2:00 AM EDT completed eCW1 [facility]) COVID-19 dose #1 given elsewhere Unspecified 02/11/2021 10:3 2:00 AM EDT completed eCW1 [facility]) COVID-19 dose #1 given elsewhere Unspecified 02/11/2021 10:3 2:00 AM EDT completed eCW1 [facility]) COVID-19 dose #1 given elsewhere Unspecified 02/11/2021 10:3 2:00 AM EDT completed eCW1 [facility]) COVID-19 dose #1 given elsewhere Unspecified 02/11/2021 10:3 2:00 AM EDT completed eCW1 [facility] COVID-19 dose #1 given elsewhere Unspecified 02/11/2021 10:3 2:00 AM EDT completed [facility]CW1 [facility] COVID-19 dose #1 given elsewhere Unspecified 02/11/2021 10:3 2:00 AM EDT completed eCW1 [facility] COVID-19 dose #1 given elsewhere Unspecified 02/11/2021 10:3 2:00 AM EDT completed [facility]CW1 [facility] COVID-19 dose #1 given elsewhere Unspecified 02/11/2021 10:3 2:00 AM EDT completed eCW1 [facility] COVID-19 VACCINE Moderna 02/11/2021 12:00:00 AM EDT completed [facility] Vaccine Series Complete: NOThis Data was Submitted to [facility] Via [employer]. COVID-19 VACCINE, MRNA-1273, LNP-S (MODERNA)/PF 02/11/2021 1 2:00:00 AM EDT completed [facility] This CVX code allows reporting of a vacc ination when formulation is unknown (for example, when recording a Influenza vaccination when noted on a vaccination card) 09/02/2020 09:58:00 AM EDT completed MEDEN T ([facility]) INFLUENZA VIRUS VACCINE QUADRIVAL (6 MOS AND UP)/PF 09/02/2020 12:00:00 AM EDT [...] TABLET BY MOUTH EVERY DAY SOLD: 04/08/2021 [facility] 15 mg 04/07/2021 12:00:00 AM EDT tablet extended release 24hr 30 TAKE ONE TABLET BY MOUTH EVERY DAY TAKE ONE TABLET BY MOUTH EVERY DAY SOLD: 05/04/2021 [facility] Covid-19 vaccine, Unspecified 03/14/2021 12:00:00 AM EDT completed MEDENT ([facility]) Medication administered onsite 0.05 % 02/25/2021 12:00:00 AM EDT ointment 60 APPLY TO AFFECTED AREA(S) TWO TIMES A DAY FOR 14 DAYS APPLY TO AFFECTED AREA(S) TWO TIMES A DAY FOR 14 DAYS SOLD: 02/26/2021 [facility] 1 % 02/25/2021 12:00:00 AM EDT lotion 60 APPLY TO AFFECTED AREA(S) TWO TIMES A DAY FOR 30 DAYS APPLY TO AFFECTED AREA(S) TWO TIMES A DAY FOR 30 DAYS SOLD: 02/26/2021 [facility] Clobetasol Propionate 0.0005 MG/MG Topic al [...] 12:00:00 AM EDT 1.0 {application} suspended eCW1 ([facility] Clobetasol Propionate 0.0005 MG/MG Topic al Ointment [...] {application} suspended Clindamycin Phosphate 1 % eCW1 ([facility] Clobetasol Propionate 0.0005 MG/MG Topic al Ointment Clobetasol Propionate 0.05 % Clobetasol Propionate 0.05 % 02/24/2021 12:00:00 AM EDT 1.0 {application} suspended Clobetasol Propionate 0.05 % eCW1 ([facility]) Clindamycin 10 MG/ML Topical Lotion Clindamycin Phosph ate 1 % Clindamycin Phosphate 1 % 02/24/2021 12:00:00 AM EDT 1.0 {application} suspended Clindamycin Phosphate 1 % [facility]CW[facility] Clindamycin 10 MG/ML Topical Lotion Clindamycin Phosph ate 1 % Clindamycin Phosphate 1 % 02/24/2021 12:00:00 AM EDT 1.0 {application} suspended Clindamycin Phosphate 1 % eCW1 ([facility] Clobetasol Propionate 0.0005 MG/MG Topic al Ointment Clobetasol Propionate 0.05 % Clobetasol Propionate 0.05 % 02/24/2021 12:00:00 AM EDT 1.0 {application} suspended Clobetasol Propionate 0.05 % eCW1 ([facility]) Clindamycin 10 MG/ML Topical Lotion Clindamycin Phosph ate 1 % Clindamycin Phosphate 1 % 02/24/2021 12:00:00 AM EDT 1.0 {application} suspended Clindamycin Phosphate 1 % eCW1 [facility] Clobetasol Propionate 0.0005 MG/MG Topic al Ointment [...] {application} suspended Clindamycin Phosphate 1 % eCW1 [facility] Clindamycin 10 MG/ML Topical Lotion Clindamycin Phosph ate 1 % Clindamycin Phosphate 1 % 02/24/2021 12:00:00 AM EDT 1.0 {application} active Clindamycin Phosphate 1 % eCW1 ([facility]) Clindamycin 10 MG/ML Topical Lotion Clindamycin Phosph ate 1 % Clindamycin Phosphate 1 % 02/24/2021 12:00:00 AM EDT 1.0 {application} suspended Clindamycin Phosphate 1 % [facility]CW1 [facility] Clobetasol Propionate 0.0005 MG/MG Topic al Ointment Clobetasol Propionate 0.05 % Clobetasol Propionate 0.05 % 02/24/2021 12:00:00 AM EDT 1.0 {application} active Clobetasol Propionate 0.05 % eCW1 ([facility]) Clindamycin 10 MG/ML Topical Lotion Clindamycin Phosph ate 1 % Clindamycin Phosphate 1 % 02/24/2021 12:00:00 AM EDT 1.0 {application} suspended [facility]CW1 [facility] Clindamycin 10 MG/ML Topical Lotion Clindamycin Phosph ate 1 % Clindamycin Phosphate 1 % 02/24/2021 12:00:00 AM EDT 1.0 {application} active Clindamycin Phosphate 1 % eCW1 ([facility]) Clindamycin 10 MG/ML Topical Lotion Clindamycin Phosph ate 1 % Clindamycin Phosphate 1 % 02/24/2021 12:00:00 AM EDT 1.0 {application} suspended Clindamycin Phosphate 1 % eCW1 [facility] Clobetasol Propionate 0.0005 MG/MG Topic al Ointment Clobetasol Propionate 0.05 % Clobetasol Propionate 0.05 % 02/24/2021 12:00:00 AM EDT 1.0 {application} active Clobetasol Propionate 0.05 % eCW1 ([facility]) Clindamycin 10 MG/ML Topical Lotion Clindamycin Phosph ate 1 % Clindamycin Phosphate 1 % 02/24/2021 12:00:00 AM EDT 1.0 {application} suspended Clindamycin Phosphate 1 % [facility]CW1 [facility] Clobetasol Propionate 0.0005 MG/MG Topic al Ointment Clobetasol Propionate 0.05 % Clobetasol Propionate 0.05 % 02/24/2021 12:00:00 AM EDT 1.0 {application} active Clobetasol Propionate 0.05 % eCW1 ([facility]) Clindamycin 10 MG/ML Topical Lotion Clindamycin Phosph ate 1 % Clindamycin Phosphate 1 % 02/24/2021 12:00:00 AM EDT 1.0 {application} suspended Clindamycin Phosphate 1 % eCW1 [facility] Clobetasol Propionate 0.0005 MG/MG Topic al Ointment [...] {application} suspended Clindamycin Phosphate 1 % eCW1 ([facility] Clindamycin 10 MG/ML Topical Lotion Clindamycin Phosph ate 1 % Clindamycin Phosphate 1 % 02/24/2021 12:00:00 AM EDT 1.0 {application} suspended Clindamycin Phosphate 1 % eCW1 ([facility] Clobetasol Propionate 0.0005 MG/MG Topic al Ointment Clobetasol Propionate 0.05 % Clobetasol Propionate 0.05 % 02/24/2021 12:00:00 AM EDT 1.0 {application} active Clobetasol Propionate 0.05 % eCW1 ([facility]) Clindamycin 10 MG/ML Topical Lotion Clindamycin Phosph ate 1 % Clindamycin Phosphate 1 % 02/24/2021 12:00:00 AM EDT 1.0 {application} suspended Clindamycin Phosphate 1 % [facility]CW1 ([facility] Clobetasol Propionate 0.0005 MG/MG Topic al Ointment [...] 12:00:00 AM EDT 1.0 {tablet} active eCW1 ([facility]) 24 HR Oxybutynin chloride 15 MG Extended [...] 12:00:00 AM EDT 1.0 {tablet} active eCW1 ([facility]) 10 mg 02/23/2021 12:00:00 AM EDT tablet [...] 02/22/2021 12:00:00 AM EDT ORAL active MEDENT ([facility] Covid-19 vaccine, Unspecified 02/11/2021 [...] AM EST active Hylatopic Plus - eCW1 ([facility]) Hylatopic Plus - Hylatopic Plus - 01/03/2021 12:00:00 AM EST suspended eCW1 ([facility]) Hylatopic Plus - Hylatopic Plus - 01/03/2021 12:00:00 AM EST active Hylatopic Plus - eCW1 ([facility]) Hylatopic Plus - Hylatopic Plus - 01/03/2021 12:00:00 AM EST suspended eCW1 ([facility]) Hylatopic Plus - Hylatopic Plus - 01/03/2021 12:00:00 AM EST active Hylatopic Plus - eCW1 ([facility]) Hylatopic Plus - Hylatopic Plus - 01/03/2021 12:00:00 AM EST suspended Hylatopic Plus - eCW1 ([facility]) Hylatopic Plus - Hylatopic Plus - 01/03/2021 12:00:00 AM EST suspended Hylatopic Plus - eCW1 ([facility]) Hylatopic Plus - Hylatopic Plus - 01/03/2021 12:00:00 AM EST active Hylatopic Plus - eCW1 ([facility]) Hylatopic Plus - Hylatopic Plus - 01/03/2021 12:00:00 AM EST active Hylatopic Plus - eCW1 ([facility]) Hylatopic Plus - Hylatopic Plus - 01/03/2021 12:00:00 AM EST suspended Hylatopic Plus - eCW1 ([facility]) Hylatopic Plus - Hylatopic Plus - 01/03/2021 12:00:00 AM EST suspended Hylatopic Plus - eCW1 ([facility]) Hylatopic Plus - Hylatopic Plus - 01/03/2021 12:00:00 AM EST active Hylatopic Plus - eCW1 ([facility]) Hylatopic Plus - Hylatopic Plus - 01/03/2021 12:00:00 AM EST active Hylatopic Plus - eCW1 ([facility]) Hylatopic Plus - Hylatopic Plus - 01/03/2021 12:00:00 AM EST active Hylatopic Plus - eCW1 ([facility]) Hylatopic Plus - Hylatopic Plus - 01/03/2021 12:00:00 AM EST suspended Hylatopic Plus - eCW1 ([facility]) Hylatopic Plus - Hylatopic Plus - 01/03/2021 12:00:00 AM EST active Hylatopic Plus - eCW1 ([facility]) Hylatopic Plus - Hylatopic Plus - 01/03/2021 12:00:00 AM EST active Hylatopic Plus - eCW1 ([facility]) Hylatopic Plus - Hylatopic Plus - 01/03/2021 [...] AM EST active Hylatopic Plus - eCW1 ([facility] Hylatopic Plus - Hylatopic Plus - 01/03/2021 [...] BEFOR E BEDTIME NEEDED SOLD: 11/23/2020 [facility] Hydroxyzine Hydrochloride 25 MG Oral Tablet [...] TABLET BY MOUTH EVERY DAY SOLD: 11/15/2020 [facility] Fluconazole 150 MG Oral Tablet [...] EDT suspended Triamcinolone Acetonide 0.1 % eCW1 ([facility]) Cephalexin 500 MG Oral Capsule [Keflex] [...] EDT suspended Triamcinolone Acetonide 0.1 % eCW1 ([facility]) Triamcinolone Acetonide 1 MG/ML Topical Cream [...] type / Coverage type Policy ID Covered republican ID Covered republican's relationship to sandoval Policy Sandoval Plan Information [employer] [place] 302/307 [id number] MO2 [id number] [employer] [place] 306/806 [id number] MO2 [id number] [employer]BS Commercial [id number] Family Dependent [id number] [employer]BS Commercial [id number] Family Dependent [employer] Commercial [id number] Family Dependent [id number] [employer] Commercial [id number] Family Dependent [id number] [employer] Commercial [id number] Family Dependent [id number] [employer] Commercial [id number] Family Dependent [id number] [employer] Commercial [id number] Family Dependent [id number] [employer] [place] 302/307 [id number] MO2 [id number] [employer] [place] [id number] Other [id number] [employer] BCBS Health Maintenance Organization (HMO) [id number] Family Dependent [id number] [employer] UNAVAILABLE 19 UNAVAILABLE [employer] BCBS Health Maintenance Organization (HMO) [id number] Family Dependent [id number] ANSI-Commercial [id number] ANSI-Commercial [id number] ANSI-Commercial [id number] ANSI-Commercial [id number] ANSI-Commercial [id number] ANSI-Commercial [id number] ANSI-Commercial [id number] ANSI-Commercial [id number] ANSI-Commercial [id number] ANSI-Commercial [id number] ANSI-Commercial [id number] ANSI-Commercial [id number] ANSI-Commercial [id number] EXCELLUS BCBS B [id number] C VYS [place]BS [place] PPO 302/307 [id number] MO2 [id number] BLUE CROSS BLUE SH[facility]ELD[facility] [id number] 19 [id number] EXCELLUS BCBS P [id number] C VYA [facility] FAULT [id number] MO2 [id number] BCBS [place] PPO 302/307 [id number] MO2 [id number] BCBS of [facility] Other 0 [id number] Family D ependent Vanessa Matos 0 BCBS [place] PPO 302/307 [id number] MO2 [id number] BCBS of [facility] Other 0 [id number] Family D ependent Vanessa Matos 0 BCBS of [facility] Other 0 [id number] Family D ependent Vanessa Matos 0 BLUE CROSS BLUE SHIELD [place] [id number] 19 [id number] EXCELLUS BCBS B [id number] C VYS [id number] BCBS [place] PPO 302/307 [id number] MO2 [id number] EXCELLUS BCBS [place] [id number] Other [id number] Problems, Conditions, and Diagnoses Code Display Name Description Problem Type Effective Dates Data Source(s) R35.1 [id number] Nocturia Problem 04/06/2021 12:00:00 AM ED T eCW1 ([facility]) 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, primary osteoarthritis Localized, anthony lena osteoarthritis Problem 02/24/2021 12:00:00 AM EDT MEDENT ([facility]) Surgeries/Procedures Procedure Description Date Indications Data [...] Strapping Ankle/foot 02/24/2021 12:00:00 AM EDT MEDENT ([facility]) Allergy Mixed Antigens 01/26/2021 12:00:00 AM EDT MEDENT ([facility]) OFFICE OUTPATIENT VISIT 25 MINUTES 01/20/2021 12:00:00 AM EST MEDENT ([facility]) Allergy Mixed Antigens 10/21/2020 12:00:00 AM EST MEDENT ([facility]) Results ID Date Data Source [facility] Knee, complete 09/02/2021 12:00:00 AM EDT eCW1 ([facility]) Name Value Range Interpretation Code Description Data Cora rce(s) Supporting Document(s) [facility] Knee, complete eCW1 ([facility]) ID Date Data Source FREE T4 & TSH PANEL 03/17/2021 12:00:00 AM EDT eCW1 ([facility]) Name Value Range Interpretation Code Description Data Cora rce(s) Supporting Document(s) 2.540 0.358-3.740 THYROID STIMULATING HORM ONE eCW1 ([facility]) 0.95 0.76-1.46 FREE T4 eCW1 ([facility]) ID Date Data Source [id number] 02/15/2021 11:19:00 AM EDT [facility]) Name Value Range Interpretation Code Description Data Cora rce(s) Supporting Document(s) QuantiFERON Criteria Laboratory test result Norm al (applies to non-numeric results) [facility] ([facility]) . The QuantiFERON-TB Gold Plus result is determined by subtracting the Nil value from either TB antigen (Ag) tube. The mitogen tube serves as a control for the test. QuantiFERON TB2 Ag Value 0.04 IU/ml Normal (applies to non -numeric results) [facility] ([facility]) QuantiFERON TB1 Ag Value 0.05 IU/ml Normal (applies to non -numeric results) [facility]) QuantiFERON Mitogen Value Laboratory test result Normal (applies to non- numeric results) [facility]) QuantiFERON Nil Value 0.03 IU/ml Normal (applies to non-nu meric results) [facility] ([facility]) QuantiFERON-TB Gold Plus Laboratory test result Normal (applies to non-numeric results) [facility] ([facility]) The specimen received for QuantiFERON te sting was incubated by the ordering institution. Specific procedures outlined in our Directory of Services and in the package insert for the QuantiFERON Gold (In Tube) test must be followed to enable for proper stimulation of cells for the production of interferon gamma. Chemiluminescence immunoassay methodology Performed at: RN - [facility] [address] [id number] Net C Developer: Galina Spence MD, Phone: [phone] ID Date Data Source [id number] 02/15/2021 11:18:00 AM EDT [facility] ([facility]) Name Value Range Interpretation Code Description Data Cora rce(s) Supporting Document(s) Monitr Crohn's Disease Laboratory test result No rmal (applies to non-numeric results) [facility] ([facility]) SEE SEPARATE REPORT Testing performed at reference lab . Report copy to follow on a separate form. 02/21/21 REF LAB#:[id number] ID Date Data Source [id number] 02/15/2021 11:18:00 AM EDT [facility] ([facility]) Name Value Range Interpretation Code Description Data Coar rce(s) Supporting Document(s) Iron (Fe) 55 ug/dL 50-170 Normal (applies to non-numeric resul ts) [facility] ([facility]) Percent Saturation 11.6 % 13.2-45.0 Below low normal [facility] ([facility]) Total Iron Binding Capacity 473 ug/dL 250-450 Above high normal [facility] ([facility]) ID Date Data Source [id number] 02/15/2021 11:18:00 AM EDT [facility] ([facility]) Name Value Range Interpretation Code Description Data Cora rce(s) Supporting Document(s) Erythrocyte sedimentation rate by Westergren method 27 mm/hr 0-20 Above high normal [facility] ([facility]) C reactive protein [Mass/volume] in Serum or Plasma by High sensitivity method 1.18 mg/dL 0.00-0.30 Above high normal [facility] ([facility]) <content>note:<nlbl:demographic_changed> </content>
<content></content> ID Date Data Source [id number] 02/15/2021 11:18:00 AM EDT [facility] ([facility]) Name Value Range Interpretation Code Description Data Cora rce(s) Supporting Document(s) Creatinine For GFR 0.67 mg/dL 0.55-1.30 Normal (applies to non -numeric results) [facility] ([facility]) Glomerular Filtration Rate Laboratory test result Normal (applies to non- numeric results) [facility] ([facility]) <content>Units are mL/min/1.73 m2</content>
<content></content>
<content>Chronic Kidney Disease Staging per NKF:</content>
<content></content>
<content>Stage I & II GFR >=60 Normal to Mildly Decreased</content>
<content>Stage III GFR 30- 59 Moderately Decreased</content>
<content>Stage IV GFR 15-29 Severely Decreased</content>
<content>Stage V GFR <15 Very Little GFR Left</content>
<content>ESRD GFR <15 on COIN MACHINE SUPERVISOR</content>
<content></content> ID Date Data Source [id number] 02/15/2021 11:18:00 AM EDT [facility] ([facility], ) Name Value Range Interpretation Code Description Data Cora rce(s) Supporting Document(s) Urea nitrogen [Mass/volume] in Serum or Plasma 8 mg/dL 7 -18 Normal (applies to non-numeric results) [facility] ([facility], ) <content>note:<nlbl:demographic_changed> </content>
<content></content> ID Date Data Source [id number] 02/15/2021 11:18:00 AM EDT [facility] ([facility]) Name Value Range Interpretation Code Description Data Cora rce(s) Supporting Document(s) Alt/SGPT 16 U/L 12-78 Normal (applies to non-numeric resul ts) [facility] ([facility], ) Ast/Sgot 13 U/L 7-37 Normal (applies to non-numeric resul ts) [facility] ([facility], ) Bilirubin,Direct Laboratory test result 0.0-0.2 Normal ( applies to non-numeric results) [facility] ([facility], ) Alkaline Phosphatase 136 U/L 45-117 Above high normal [facility] ([facility]) Bilirubin,Total 0.2 mg/dL 0.2-1.0 Normal (applies to non-numeric results) [facility] ([facility], ) Albumin 3.3 GM/DL 3.2-5.2 Normal (applies to non-numeric resul ts) [facility] ([facility]) Total Protein 7.0 GM/DL 6.4-8.2 Normal (applies to non-numeric re sults) [facility] ([facility]) Albumin/Globulin Ratio 0.9 1.2-2.2 Below low normal [facility] ([facility]) ID Date Data Source [id number] 02/15/2021 11:18:00 AM EDT [facility] ([facility], ) Name Value Range Interpretation Code Description Data Cora rce(s) Supporting Document(s) White Blood Count 5.5 10 4.0-10.0 Normal (applies to non-numeri c results) [facility] ([facility], ) Red Blood Count 4.73 10 4.00-5.40 Normal (applies to non-numeric results) [facility] ([facility], ) Hemoglobin 12.0 g/dL 12.0-15.5 Normal (applies to non-numeric resul ts) [facility]) Hematocrit 38.2 % 36.0-47.0 Normal (applies to non-numeric resul ts) [facility]) Mean Corpuscular Volume 80.8 fl 80.0-96.0 Normal ( applies to non-numeric results) [facility] ([facility], ) Mean Corpuscular Hemoglobin 25.4 pg 27.0-33.0 Below low normal [facility] ([facility]) Red Cell Distribution Width 14.1 % 11.5-14.5 Norm al (applies to non-numeric results) [facility] ([facility]) Mean Corpuscular HGB Conc 31.4 g/dL 32.0-36.[address] [facility]) Neutrophils % 61.3 % 36.0-66.0 Normal (applies to non-numeric re sults) [facility] ([facility]) Platelet Count, Automated 309 10 150-450 Normal (applies to non-numeric results) [facility], ) Eos % 2.6 % 0.0-3.0 Normal (applies to non-numeric resul ts) [facility] Lymph % 28.8 % 24.0-44.0 Normal (applies to non-numeric resul ts) [facility] [place] % 6.6 % 2.0-8.0 Normal (applies to non-numeric resul ts) [facility] Baso % 0.5 % 0.0-1.0 Normal (applies to non-numeric resul ts) [facility] ([facility]) Immature Granulocyte % 0.2 % 0-3.0 Normal (applies to non-n umeric results) [facility] ([facility]) Lymph # 1.6 10 1.5-5.0 Normal (applies to non-numeric resul ts) [facility] ([facility]) Nucleated Red Blood Cell % 0.0 % 0-0 Normal (applies to n on-numeric results) [facility] ([facility]) Neutrophils # 3.4 10 1.5-8.5 Normal (applies to non-numeric re sults) [facility] ([facility]) [place] # 0.4 10 0.0-0.8 Normal (applies to non-numeric resul ts) [facility] ([facility]) Eos # 0.1 10 0.0-0.5 Normal (applies to non-numeric resul ts) [facility] ([facility]) Baso # 0.0 10 0.0-0.2 Normal (applies to non-numeric resul ts) [facility] ([facility]) Procedure Social History Code Duration Value Status Description Data Source(s ) Smoking 10/13/2021 08:15:06 PM EST Never smoked tobacco (findi ng) completed Never smoked tobacco (finding) JORY (Rex Fontaine MD [facility]) Smoking 09/27/2021 12:00:00 AM EST Never [...] smoked tobacco (finding) JORY (Rex Fontaine MD [facility]) Smoking 09/01/2021 12:00:00 AM EDT Never [...] 06/01/2021 12:18:28 PM EDT Never smoked tobacco (findi ng) completed Never smoked tobacco (finding) JORY (Rex Fontaine MD [facility]) Smoking 05/26/2021 12:00:00 AM EDT Patient [...] co mpleted Patient has never smoked MEDENT ([facility]) Smoking 08/31/2020 12:00:00 AM EDT Never [...] Range Interpretation Code Description Data Source(s) Body mass index (BMI) [Ratio] 35.71 kg/m2 35.71 kg/m2 eCW1 ([facility]) Systolic blood pressure 122 mm[Hg] 122 mm[Hg] e CW1 ([facility]) Diastolic blood pressure 84 mm[Hg] 84 mm[Hg] eCW1 ([facility]) Body weight 176.8 [lb_av] 176.8 [lb_av] eCW1 ([facility]) Body weight 80.2 kg 80.2 kg eCW1 ([facility]) Body height 59 [in_i] 59 [in_i] eCW1 ([facility]) Body weight 175.4 [lb_av] 175.4 [lb_av] eCW1 ([facility]) Body weight 79.56 kg 79.56 kg eCW1 ([facility]) Body height 59 [in_i] 59 [in_i] eCW1 ([facility]) Body mass index (BMI) [Ratio] 35.42 kg/m2 35.42 kg/m2 eCW1 ([facility]) Heart rate 95 /min 95 /min eCW1 ([facility]) Respiratory rate 18 /min 18 /min eCW1 ([facility]) Body temperature 98.6 [degF] 98.6 [degF] eCW1 ( [facility]) Systolic blood pressure 142 mm[Hg] 142 mm[Hg] e CW1 ([facility]) Diastolic blood pressure 83 mm[Hg] 83 mm[Hg] eCW1 ([facility]) Body weight 165.6 [lb_av] 165.6 [lb_av] eCW1 ([facility]) Respiratory rate 16 /min 16 /min eCW1 ([facility]) Body temperature 98.9 [degF] 98.9 [degF] eCW1 ( [facility]) Systolic blood pressure 119 mm[Hg] 119 mm[Hg] e CW1 ([facility]) Diastolic blood pressure 74 mm[Hg] 74 mm[Hg] eCW1 ([facility]) Body height 59 [in_i] 59 [in_i] eCW1 ([facility]) Body mass index (BMI) [Ratio] 33.44 kg/m2 33.44 kg/m2 eCW1 ([facility]) Heart rate 100 /min 100 /min eCW1 ([facility]) Respiratory rate 16 /min 16 /min MEDENT [...] MEDENT ([facility]) Heart rate 90 /min 90 /min eCW1 ([facility]) Body weight 165 [lb_av] 165 [lb_av] eCW1 ([facility]) Respiratory rate 18 /min 18 /min eCW1 ([facility]) Body height 59 [in_i] 59 [in_i] eCW1 ([facility]) Body mass index (BMI) [Ratio] 33.32 kg/m2 33.32 kg/m2 eCW1 ([facility]) Body temperature 96.8 [degF] 96.8 [degF] eCW1 ( [facility]) Systolic blood pressure 110 mm[Hg] 110 mm[Hg] e CW1 ([facility]) Diastolic blood pressure 76 mm[Hg] 76 mm[Hg] eCW1 ([facility]) Body weight 164 [lb_av] 164 [lb_av] eCW1 ([facility]) Body height 59 [in_i] 59 [in_i] eCW1 ([facility]) Body mass index (BMI) [Ratio] 33.12 kg/m2 33.12 kg/m2 eCW1 ([facility]) Heart rate 86 /min 86 /min eCW1 ([facility]) Respiratory rate 18 /min 18 /min eCW1 ([facility]) Body temperature 98.8 [degF] 98.8 [degF] eCW1 ( [facility]) Systolic blood pressure 111 mm[Hg] 111 mm[Hg] e CW1 ([facility]) Diastolic blood pressure 76 mm[Hg] 76 mm[Hg] eCW1 ([facility]) Body weight 163 [lb_av] 163 [lb_av] eCW1 ([facility]) Body height 59 [in_i] 59 [in_i] eCW1 ([facility]) Body mass index (BMI) [Ratio] 32.92 kg/m2 32.92 kg/m2 eCW1 ([facility]) Body temperature 97.0 [degF] 97.0 [degF] eCW1 ( [facility]) Systolic blood pressure 126 mm[Hg] 126 mm[Hg] e CW1 ([facility]) Diastolic blood pressure 76 mm[Hg] 76 mm[Hg] eCW1 ([facility]) Body weight 164 [lb_av] 164 [lb_av] eCW1 ([facility]) Body height 59 [in_i] 59 [in_i] eCW1 ([facility]) Body mass index (BMI) [Ratio] 33.12 kg/m2 33.12 kg/m2 eCW1 ([facility]) Heart rate 83 /min 83 /min eCW1 ([facility]) Respiratory rate 18 /min 18 /min eCW1 ([facility]) Body temperature 98.4 [degF] 98.4 [degF] eCW1 ( [facility]) Systolic blood pressure 118 mm[Hg] 118 mm[Hg] e CW1 ([facility]) Diastolic blood pressure 68 mm[Hg] 68 mm[Hg] eCW1 ([facility]) Diastolic blood pressure 68 mm[Hg] 68 mm[Hg] eCW1 ([facility]) Body weight 164 [lb_av] 164 [lb_av] eCW1 ([facility]) Body height 59 [in_i] 59 [in_i] eCW1 ([facility]) Body mass index (BMI) [Ratio] 33.12 kg/m2 33.12 kg/m2 eCW1 ([facility]) Systolic blood pressure 120 mm[Hg] 120 mm[Hg] e CW1 ([facility]) Body weight 163.4 [lb_av] 163.4 [lb_av] eCW1 ([facility]) Body height 59 [in_i] 59 [in_i] eCW1 ([facility]) Body mass index (BMI) [Ratio] 33.00 kg/m2 33.00 kg/m2 eCW1 ([facility]) Heart rate 84 /min 84 /min eCW1 ([facility]) Respiratory rate 18 /min 18 /min eCW1 ([facility]) Body temperature 98 [degF] 98 [degF] eCW1 ([facility]) Systolic blood pressure 129 mm[Hg] 129 mm[Hg] e CW1 ([facility]) Diastolic blood pressure 87 mm[Hg] 87 mm[Hg] eCW1 ([facility]) Body mass index (BMI) [Ratio] 32.9 kg/m2 32.9 k g/m2 MED[facility] ([facility]) [place] body weight 100 [lb_av] 100 [lb_av] MEDEN T ([facility]) Body weight 73.937 kg 73.937 kg MEDENT ([facility]) Body surface area Derived from formula 1.69 m2 1.69 m2 MED[facility] ([facility]) Body weight 163.00 [lb_av] 163.00 [lb_av] MEDEN T ([facility]) Body height 59 [in_i] 59 [in_i] MEDENT ([facility]) 4'11" Systolic blood pressure 116 mm[Hg] 116 mm[Hg] M EDENT ([facility]) Diastolic blood pressure 70 mm[Hg] 70 mm[Hg] MEDENT ([facility]) Heart rate 97 /min 97 /min [facility] ([facility] Systolic blood pressure 106 mm[Hg] [...] k g/m2 MED[facility] ([facility]) Respiratory rate 16 /min 16 /min MED[facility] ( [facility]) Body weight 152.0 [lb_av] 152.0 [lb_av] eCW1 ([facility]) Body height 59 [in_i] 59 [in_i] eCW1 ([facility]) Body mass index (BMI) [Ratio] 30.70 kg/m2 30.70 kg/m2 W1 ([facility]) Systolic blood pressure 116 mm[Hg] 116 mm[Hg] e CW1 ([facility]) Diastolic blood pressure 74 mm[Hg] 74 mm[Hg] eCW1 ([facility]) Body weight 151 [lb_av] 151 [lb_av] eCW1 ([facility]) Body temperature 98.1 [degF] 98.1 [degF] eCW1 ( [facility]) Body height 59 [in_i] 59 [in_i] eCW1 ([facility]) Body mass index (BMI) [Ratio] 30.49 kg/m2 30.49 kg/m2 eCW1 ([facility]) Systolic blood pressure 110 mm[Hg] 110 mm[Hg] e CW1 ([facility]) Heart rate 88 /min 88 /min eCW1 ([facility]) Diastolic blood pressure 72 mm[Hg] 72 mm[Hg] eCW1 ([facility]) Respiratory rate 18 /min 18 /min eCW1 ([facility]) Respiratory rate 16 /min 16 /min [...] Topical Ointment 02/25/20 12:00:00 AM EDT [facility] Clindamycin 10 MG/ML Topical Lotion 02/24/2021 12:00:00 AM EDT eCW1 ([facility]) Clobetasol Propionate 0.0005 MG/MG Topical Ointment 02/25/20 12:00:00 AM EDT [facility]CW[facility] 24 HR Oxybutynin chloride 15 MG Extended Release Oral Tablet 02/23/2021 12:00:00 AM EDT eCW1 ([facility]) 24 HR Oxybutynin chloride 15 MG Extended Release Oral Tablet 02/23/2021 12:00:00 AM EDT eCW1 ([facility]) 24 HR Oxybutynin chloride 15 MG Extended Release Oral Tablet 02/23/2021 12:00:00 AM EDT eCW1 ([facility]) 24 HR Oxybutynin chloride 15 MG Extended Release Oral Tablet 02/23/2021 12:00:00 AM EDT eCW1 ([facility]) 24 HR Oxybutynin chloride 15 MG Extended Release Oral Tablet 02/23/2021 12:00:00 AM EDT eCW1 ([facility]) 24 HR Oxybutynin chloride 15 MG Extended Release Oral Tablet 02/23/2021 12:00:00 AM EDT eCW1 ([facility]) 24 HR Oxybutynin chloride 15 MG Extended Release Oral Tablet 02/23/2021 12:00:00 AM EDT eCW1 ([facility]) 24 HR Oxybutynin chloride 15 MG Extended Release Oral Tablet 02/23/2021 12:00:00 AM EDT eCW1 ([facility]) 24 HR Oxybutynin chloride 15 MG Extended Release Oral Tablet 02/23/2021 12:00:00 AM EDT eCW1 ([facility]) 24 HR Oxybutynin chloride 15 MG Extended Release Oral Tablet 02/23/2021 12:00:00 AM EDT eCW1 ([facility]) 24 HR Oxybutynin chloride 15 MG Extended Release Oral Tablet 02/23/2021 12:00:00 AM EDT eCW1 ([facility]) [facility] 12:00:00 AM EST e CW1 ([facility]) [facility] 12:00:00 AM EST e CW1 [...]
== END 2021-10-17 20:57 | disposition home or self-care (01) ==
LOC: M ED 16:17
DX: S09.90XA Unspecified injury of head, initial encounter (principal); M79.9 Soft tissue disorder, unspecified; V43.62XA Car passenger injured in collision with other type car in traffic accident, initial encounter; Y92.9 Unspecified place or not applicable; Y93.9 Activity, unspecified; Y99.9 Unspecified external cause status; F41.9 Anxiety disorder, unspecified; F32.9 Major depressive disorder, single episode, unspecified; Z79.3 Long term (current) use of hormonal contraceptives; Z79.899 Other long term (current) drug therapy

== ENCOUNTER → 2021-12-12 | Outpatient (RCR) | payer BC, OTHER | LOC: M PT 11-21 08:06 | PROVIDERS: ATTEND Nurse Practitioner Family | DX: F07.81 Postconcussional syndrome (principal) ==

== ENCOUNTER 2021-12-19 06:57 | Outpatient (RCR) | payer OTHER | END 2022-01-09 | LOC: M PT 06:57 | PROVIDERS: ATTEND Nurse Practitioner Family | DX: F07.81 Postconcussional syndrome (principal) ==

== ENCOUNTER → 2021-12-30 | Outpatient (CLI) | payer BC ==
[2021-12-30 08:03] LABS: BASO # 0.1 10^3/uL (0.0-0.2); BASO % 0.7 % (0.0-1.0); EOS # 0.2 10^3/uL (0.0-0.5); EOS % 2.6 % (0.0-3.0); HEMATOCRIT 37.4 % (36.0-47.0); HEMOGLOBIN 11.7 g/dl (12.0-15.5); LYMPH # 2.2 10^3/uL (1.5-5.0); LYMPH % 29.1 % (24.0-44.0); MEAN CORPUSCULAR HEMOGLOBIN 24.4 pg (27.0-33.0); MEAN CORPUSCULAR HGB CONC 31.3 g/dl (32.0-36.5); MEAN CORPUSCULAR VOLUME 78.1 fl (80.0-96.0); MONO # 0.4 10^3/uL (0.0-0.8); MONO % 5.8 % (2.0-8.0); NEUTROPHILS # 4.7 10^3/uL (1.5-8.5); NEUTROPHILS % 61.5 % (36.0-66.0); PLATELET COUNT, AUTOMATED 355 10^3/uL (150-450); RED BLOOD COUNT 4.79 10^6/uL (4.00-5.40); WHITE BLOOD COUNT 7.6 10^3/uL (4.0-10.0)
[2021-12-30 08:28] LABS: ALBUMIN 3.1 GM/DL (3.2-5.2); ALT/SGPT 23 U/L (12-78); BILIRUBIN,TOTAL 0.3 MG/DL (0.2-1.0); BLOOD UREA NITROGEN 5 MG/DL (7-18); CALCIUM LEVEL 8.4 MG/DL (8.5-10.1); CARBON DIOXIDE LEVEL 23 MEQ/L (21-32); CHLORIDE LEVEL 110 MEQ/L (98-107); CREATININE FOR GFR 0.69 MG/DL (0.55-1.30); FREE T4 1.29 NG/DL (0.76-1.46); GLOMERULAR FILTRATION RATE > 60.0 (>60); GLUCOSE, FASTING 77 MG/DL (70-100); POTASSIUM SERUM 4.3 MEQ/L (3.5-5.1); SODIUM LEVEL 142 MEQ/L (136-145); TOTAL PROTEIN 7.1 GM/DL (6.4-8.2)
== END ==
LOC: M LAB 07:09
PROVIDERS: ATTEND Student in an Organized Health Care Education/Training Program
DX: R53.83 Other fatigue (principal)

== ENCOUNTER → 2022-03-14 | Outpatient (CLI) | payer BC ==
[2022-03-14 10:46] LABS: BASO # 0.1 10^3/uL (0.0-0.2); BASO % 0.7 % (0.0-1.0); EOS # 0.1 10^3/uL (0.0-0.5); EOS % 1.5 % (0.0-3.0); HEMATOCRIT 41.2 % (36.0-47.0); HEMOGLOBIN 13.1 g/dl (12.0-15.5); LYMPH # 1.7 10^3/uL (1.5-5.0); LYMPH % 19.5 % (24.0-44.0); MEAN CORPUSCULAR HEMOGLOBIN 25.3 pg (27.0-33.0); MEAN CORPUSCULAR HGB CONC 31.8 g/dl (32.0-36.5); MEAN CORPUSCULAR VOLUME 79.5 fl (80.0-96.0); MONO # 0.5 10^3/uL (0.0-0.8); MONO % 5.3 % (2.0-8.0); NEUTROPHILS # 6.4 10^3/uL (1.5-8.5); NEUTROPHILS % 72.7 % (36.0-66.0); PLATELET COUNT, AUTOMATED 348 10^3/uL (150-450); RED BLOOD COUNT 5.18 10^6/uL (4.00-5.40); WHITE BLOOD COUNT 8.8 10^3/uL (4.0-10.0)
[2022-03-14 11:04] LABS: ERYTHROCYTE SEDIMENTATION RATE 43 mm/hr (0-20)
[2022-03-14 11:23] LABS: ALBUMIN 3.6 GM/DL (3.2-5.2); ALT/SGPT 39 U/L (12-78); BILIRUBIN,DIRECT 0.1 MG/DL (0.0-0.2); BILIRUBIN,TOTAL 0.4 MG/DL (0.2-1.0); BLOOD UREA NITROGEN 7 MG/DL (7-18); C REACTIVE PROTEIN QUANTITATIV 1.53 MG/DL (0.00-0.30); CREATININE FOR GFR 0.79 MG/DL (0.55-1.30); FERRITIN 43 NG/ML (8-252); GLOMERULAR FILTRATION RATE > 60.0 (>60); IRON (FE) 65 UG/DL (50-170); PERCENT SATURATION 12.5 % (13.2-45.0); TOTAL IRON BINDING CAPACITY 521 UG/DL (250-450); TOTAL PROTEIN 7.9 GM/DL (6.4-8.2)
== END ==
LOC: M LAB 08:47
PROVIDERS: ATTEND Internal Medicine Gastroenterology
DX: K50.80 Crohn's disease of both small and large intestine without complications (principal)

== ENCOUNTER → 2022-04-04 | Outpatient (CLI) | payer BC ==
[~2022-04-04] MED LIST changes: -AZAT50TA2; +AZAT50TA37
== END ==
LOC: M LAB 09:09
PROVIDERS: ATTEND Student in an Organized Health Care Education/Training Program
DX: R74.8 Abnormal levels of other serum enzymes (principal)

== ENCOUNTER 2023-12-31 10:27 | Day surgery (SDC) | payer BC ==
[~2023-12-31] VITALS: Ht 149.9 cm; Wt 68.2 kg
[~2023-12-31 10:27] MED LIST changes: +BRIN1TAB3 PO; -DULE100A IN; +ISIB1TAB PO; +MOME13HF8 IN; +MONT-5 PO; -SING10TA32 PO; +STEL90IN SQ
[2023-12-31] MEDS: NS 1,000 ML IV ONE (11:34)
[2023-12-31] MEDS ORDERED: propofoL 200 MG/20 ML VIAL As Ordered ONE (12:53)
[2023-12-31] MEDS ORDERED: LIDOCAINE 2% 100MG/5ML SDV (FOR ANES.) As Ordered ONE (12:53)
[2023-12-31 13:23] VITALS: TEMP 97.7
[2023-12-31 13:39] VITALS: BP 110/69; O2SAT 100
== END 2023-12-31 13:39 | disposition home or self-care (01) ==
LOC: M OPP 10:27
PROVIDERS: ATTEND Internal Medicine Gastroenterology
DX: Z12.11 Encounter for screening for malignant neoplasm of colon (principal); K50.018 Crohn's disease of small intestine with other complication; K64.4 Residual hemorrhoidal skin tags; K64.8 Other hemorrhoids; K56.699 Other intestinal obstruction unspecified as to partial versus complete obstruction; Z79.3 Long term (current) use of hormonal contraceptives; Z79.51 Long term (current) use of inhaled steroids; Z79.620 Long term (current) use of immunosuppressive biologic; Z79.899 Other long term (current) drug therapy

== ENCOUNTER → 2024-02-19 | Outpatient (REF) | payer BC | LOC: M SFHCPLAZ 14:01 | PROVIDERS: ATTEND Student in an Organized Health Care Education/Training Program | DX: Z30.41 Encounter for surveillance of contraceptive pills (principal); K50.90 Crohn's disease, unspecified, without complications; E55.9 Vitamin D deficiency, unspecified; D50.9 Iron deficiency anemia, unspecified ==

== ENCOUNTER → 2024-02-21 | Outpatient (CLI) | payer BC ==
[2024-02-21 14:10] LABS: BASO # 0.1 10^3/uL (0.0-0.2); BASO % 1.1 % (0.0-1.0); EOS # 0.2 10^3/uL (0.0-0.5); EOS % 2.7 % (0.0-3.0); HEMOGLOBIN 13.1 g/dl (12.0-15.5); LYMPH # 2.1 10^3/uL (1.5-5.0); LYMPH % 28.4 % (24.0-44.0); MEAN CORPUSCULAR HEMOGLOBIN 26.6 pg (27.0-33.0); MEAN CORPUSCULAR VOLUME 83.3 fl (80.0-96.0); MONO # 0.4 10^3/uL (0.0-0.8); MONO % 5.9 % (2.0-8.0); NEUTROPHILS # 4.5 10^3/uL (1.5-8.5); NEUTROPHILS % 61.8 % (36.0-66.0); PLATELET COUNT, AUTOMATED 313 10^3/uL (150-450); RED BLOOD COUNT 4.92 10^6/uL (4.00-5.40); WHITE BLOOD COUNT 7.3 10^3/uL (4.0-10.0)
[2024-02-21 14:18] LABS: FERRITIN 15.6 NG/ML (7.3-270.7); THYROID STIMULATING HORMONE 1.779 uIU/ML (0.55-4.78); TOTAL IRON BINDING CAPACITY 469 UG/DL (250-425)
[2024-02-21 14:19] LABS: ALBUMIN 3.6 G/DL (3.2-5.2); ALKALINE PHOSPHATASE 122 U/L (46-116); ALT/SGPT 13 U/L (7.0-40); AST/SGOT 12 U/L (<34); BILIRUBIN,TOTAL 0.4 MG/DL (0.3-1.2); BLOOD UREA NITROGEN 8 MG/DL (9-23); CARBON DIOXIDE LEVEL 27 MMOL/L (20-31); CHLORIDE LEVEL 104 MMOL/L (98-107); CHOLESTEROL LEVEL 204 MG/DL (<200); CHOLESTEROL RISK RATIO 3.47 (<5); CREATININE FOR GFR 0.67 MG/DL (0.55-1.30); GLOMERULAR FILTRATION RATE > 60.0 (>60); GLUCOSE, FASTING 74 MG/DL (60-100); HDL CHOLESTEROL 58.7 MG/DL (>40); IRON (FE) 71 UG/DL (50-170); LDL CHOLESTEROL 108.9 MG/DL (<100); NON-HDL-C 145.3 MG/DL; PERCENT SATURATION 15.1 % (13.2-45.0); POTASSIUM SERUM 4.3 MMOL/L (3.5-5.1); SODIUM LEVEL 139 MMOL/L (136-145); TOTAL PROTEIN 7.2 G/DL (5.7-8.2); TRIGLYCERIDES LEVEL 182 MG/DL (<150)
== END ==
LOC: M PLALAB 09:03
PROVIDERS: ATTEND Student in an Organized Health Care Education/Training Program
DX: R05.3 Chronic cough (principal); Z30.41 Encounter for surveillance of contraceptive pills; K50.90 Crohn's disease, unspecified, without complications; E55.9 Vitamin D deficiency, unspecified; D50.9 Iron deficiency anemia, unspecified

== ENCOUNTER → 2024-02-21 | Outpatient (CLI) | payer BC ==
[2024-02-21 14:20] LABS: ALBUMIN 3.5 G/DL (3.2-5.2); ALKALINE PHOSPHATASE 122 U/L (46-116); ALT/SGPT 14 U/L (7.0-40); AST/SGOT 12 U/L (<34); BILIRUBIN,DIRECT < 0.1 MG/DL (<0.4); BILIRUBIN,TOTAL 0.4 MG/DL (0.3-1.2); BLOOD UREA NITROGEN 8 MG/DL (9-23); CREATININE FOR GFR 0.66 MG/DL (0.55-1.30); GLOMERULAR FILTRATION RATE > 60.0 (>60); TOTAL PROTEIN 7.2 G/DL (5.7-8.2)
== END ==
LOC: M PLALAB 09:08
PROVIDERS: ATTEND Internal Medicine Gastroenterology
DX: K50.80 Crohn's disease of both small and large intestine without complications (principal)

== ENCOUNTER → 2024-03-27 | Outpatient (REF) | payer BC | LOC: M SFHCDERM 12:36 | PROVIDERS: ATTEND Nurse Practitioner Family | DX: T14.8XXA Other injury of unspecified body region, initial encounter (principal) ==

== ENCOUNTER → 2024-05-06 | Outpatient (CLI) | payer MEDICAID ==
[~2024-05-06] MED LIST changes: +ONDA-282 PO; -ONDA4TAB6 PO
[2024-05-06 11:12] LABS: CHOLESTEROL RISK RATIO 3.47 (<5); HDL CHOLESTEROL 63.3 MG/DL (>40); LDL CHOLESTEROL 120.9 MG/DL (<100); NON-HDL-C 156.7 MG/DL
== END ==
LOC: M PLALAB 07:47
PROVIDERS: ATTEND Psychiatry & Neurology Psychiatry
DX: F42.9 Obsessive-compulsive disorder, unspecified (principal); F41.1 Generalized anxiety disorder; F40.10 Social phobia, unspecified

== ENCOUNTER 2024-05-13 11:51 | Inpatient (IN) | payer MEDICAID, OTHER ==
[~2024-05-13] VITALS: Ht 149.9 cm; Wt 71.0 kg
[2024-05-13] MEDS: ALPRAZolam 0.5 MG TAB PO ONE (12:45)
[2024-05-13 13:24] LABS: AMPHETAMINES LEVEL URINE NEGATIVE (NEGATIVE); BARBITURATES URINE NEGATIVE (NEGATIVE); BENZODIAZEPINES URINE NEGATIVE (NEGATIVE); CANNABINOIDS URINE NEGATIVE (NEGATIVE); COCAINE METABOLITE URINE NEGATIVE (NEGATIVE); METHADONE URINE NEGATIVE (NEGATIVE); OPIATES URINE NEGATIVE (NEGATIVE); PHENCYCLIDINE URINE NEGATIVE (NEGATIVE)
[2024-05-13 14:03] LABS: HEMATOCRIT 40.8 % (36.0-47.0); MEAN CORPUSCULAR HEMOGLOBIN 26.3 pg (27.0-33.0); MEAN CORPUSCULAR HGB CONC 31.9 g/dl (32.0-36.5); MEAN CORPUSCULAR VOLUME 82.6 fl (80.0-96.0); PLATELET COUNT, AUTOMATED 337 10^3/uL (150-450); RED BLOOD COUNT 4.94 10^6/uL (4.00-5.40); WHITE BLOOD COUNT 8.4 10^3/uL (4.0-10.0)
[2024-05-13] MEDS ORDERED: ENSK1TAB3 PO (14:27)
[2024-05-13] MEDS ORDERED: VENTAER INH (14:27)
[2024-05-13] MEDS ORDERED: ADVA45AE INH (14:27)
[2024-05-13 14:29] LABS: ETHYL ALCOHOL (ETHANOL) 0.004 % (0.000-0.010)
[2024-05-13 14:31] LABS: ALBUMIN 3.6 G/DL (3.2-5.2); ALKALINE PHOSPHATASE 153 U/L (46-116); ALT/SGPT 22 U/L (7.0-40); AST/SGOT 16 U/L (<34); BILIRUBIN,DIRECT 0.1 MG/DL (<0.4); BILIRUBIN,TOTAL 0.4 MG/DL (0.3-1.2); BLOOD UREA NITROGEN 6 MG/DL (9-23); CALCIUM LEVEL 9.1 MG/DL (8.5-10.1); CARBON DIOXIDE LEVEL 24 MMOL/L (20-31); CHLORIDE LEVEL 106 MMOL/L (98-107); GLOMERULAR FILTRATION RATE > 60.0 (>60); GLUCOSE, FASTING 72 MG/DL (60-100); HCG, SERUM QUALITATIVE NEGATIVE (NEGATIVE); POTASSIUM SERUM 4.1 MMOL/L (3.5-5.1); SALICYLATE LEVEL < 3.0 MG/DL (<30); SODIUM LEVEL 139 MMOL/L (136-145); TOTAL PROTEIN 7.3 G/DL (5.7-8.2)
[2024-05-13 14:33] LABS: THYROID STIMULATING HORMONE 1.432 uIU/ML (0.55-4.78)
[2024-05-13] MEDS ORDERED: STEL90IN SC (14:35)
[2024-05-13] MEDS ORDERED: HOME MED LIST COMPLETE! XX SCH (14:55)
[2024-05-14] MEDS: ADVAIR HFA 45/21MCG INHALER INH SCH ×2 (08:00→21:50)
[2024-05-14] MEDS ORDERED: ADVAIR HFA 45/21MCG INHALER INH SCH (09:00)
[2024-05-14] MEDS ORDERED: MOM 30ML SUSPENSION UDC PO PRN (12:25)
[2024-05-14] MEDS ORDERED: IBUPROFEN 400MG TAB PO PRN (12:25)
[2024-05-14] MEDS ORDERED: ACETAMINOPHEN TAB 650MG DOSE (2X325MG) PO PRN (12:25)
[2024-05-14] MEDS ORDERED: traZODone 50 MG TAB PO PRN (12:25)
[2024-05-14] MEDS ORDERED: MAALOX 30 ML SUSP *UDC PO PRN (12:25)
[2024-05-14 14:05] VITALS: BP 113/66; TEMP 97.4; O2SAT 100
[2024-05-14] MEDS: OLANZapine ORAL DISINTEGRATING TAB 5MG PO PRN (15:08)
[2024-05-14] MEDS ORDERED: ALBUTEROL 90 MCG/ACT 8GM HFA INHALER INH PRN (19:55)
[2024-05-14] MEDS ORDERED: ENSKYCE PO SCH (21:00)
[2024-05-14] MEDS ORDERED: ENTER DRUG NAME HERE (PATIENT'S OWN MED) PO SCH (21:00)
[2024-05-14] MEDS: ENSKYCE PO SCH (22:21)
[2024-05-15] MEDS ORDERED: UNRESOLVED CLARIFICATION ENTRY XX SCH (00:01)
[2024-05-15 06:20] VITALS: BP 104/61; TEMP 98; O2SAT 98
[2024-05-15] MEDS: diphenhydrAMINE 25MG CAP PO PRN (15:11)
[2024-05-15 15:35] VITALS: BP 115/80; TEMP 98.2; O2SAT 99
[2024-05-15] MEDS: OLANZapine 5 MG TAB PO SCH (20:57)
[2024-05-16 06:20] VITALS: BP 113/78; TEMP 98.1; O2SAT 98
[2024-05-16] MEDS: OLANZapine 5 MG TAB PO SCH (11:22)
[2024-05-16 15:40] VITALS: BP 110/62; TEMP 98.2; O2SAT 100
[2024-05-17 06:18] VITALS: BP 113/78; TEMP 97.9; O2SAT 99
[2024-05-17 16:25] VITALS: BP 112/70; TEMP 98.2; O2SAT 100
[2024-05-18 05:57] VITALS: BP 109/72; TEMP 97.7; O2SAT 97
[2024-05-19 07:02] VITALS: BP 115/71; TEMP 98.1; O2SAT 99
[2024-05-19 18:45] VITALS: BP 112/78; TEMP 97.9
[2024-05-20 06:25] VITALS: BP 112/73; TEMP 97.9; O2SAT 98
[2024-05-20] MEDS ORDERED: OLAN1TAB16 PO (09:52)
== END 2024-05-20 12:25 | disposition home or self-care (01) | DRG 753 ==
LOC: EDBD 11:51 → M ED 11:51 → M ED INP 05-14 12:22 → EDBEDREQ 05-14 12:38 → M PSY 05-14 14:17
PROVIDERS: ADMIT Student in an Organized Health Care Education/Training Program; ATTEND Student in an Organized Health Care Education/Training Program
DX: F31.5 Bipolar disorder, current episode depressed, severe, with psychotic features (principal); F41.9 Anxiety disorder, unspecified; F42.9 Obsessive-compulsive disorder, unspecified; Z79.899 Other long term (current) drug therapy; J45.909 Unspecified asthma, uncomplicated; K50.90 Crohn's disease, unspecified, without complications

== ENCOUNTER 2024-06-10 12:59 | Inpatient (IN) | payer MEDICAID, OTHER ==
[~2024-06-10] VITALS: Ht 149.9 cm; Wt 74.3 kg
[~2024-06-10 12:59] MED LIST changes: +ADVA45AE INH; +ENSK1TAB3 PO; +OLAN1TAB16 PO; +STEL90IN SC; +VENTAER INH
[2024-06-10 14:39] LABS: HEMATOCRIT 38.9 % (36.0-47.0); HEMOGLOBIN 12.5 g/dl (12.0-15.5); MEAN CORPUSCULAR HEMOGLOBIN 26.2 pg (27.0-33.0); MEAN CORPUSCULAR HGB CONC 32.1 g/dl (32.0-36.5); MEAN CORPUSCULAR VOLUME 81.4 fl (80.0-96.0); PLATELET COUNT, AUTOMATED 351 10^3/uL (150-450); RED BLOOD COUNT 4.78 10^6/uL (4.00-5.40); WHITE BLOOD COUNT 7.8 10^3/uL (4.0-10.0)
[2024-06-10 14:43] LABS: ETHYL ALCOHOL (ETHANOL) < 0.003 % (0.000-0.010)
[2024-06-10 14:44] LABS: SALICYLATE LEVEL < 3.0 MG/DL (<30)
[2024-06-10 14:45] LABS: ALBUMIN 3.3 G/DL (3.2-5.2); ALKALINE PHOSPHATASE 143 U/L (46-116); ALT/SGPT 13 U/L (7.0-40); AST/SGOT 10 U/L (<34); BILIRUBIN,DIRECT < 0.1 MG/DL (<0.4); BILIRUBIN,TOTAL 0.2 MG/DL (0.3-1.2); BLOOD UREA NITROGEN 10 MG/DL (9-23); CALCIUM LEVEL 8.9 MG/DL (8.5-10.1); CARBON DIOXIDE LEVEL 22 MMOL/L (20-31); CHLORIDE LEVEL 107 MMOL/L (98-107); CREATININE FOR GFR 0.64 MG/DL (0.55-1.30); GLOMERULAR FILTRATION RATE > 60.0 (>60); GLUCOSE, FASTING 95 MG/DL (60-100); POTASSIUM SERUM 4.1 MMOL/L (3.5-5.1); SODIUM LEVEL 139 MMOL/L (136-145)
[2024-06-10 14:47] LABS: THYROID STIMULATING HORMONE 2.266 uIU/ML (0.55-4.78)
[2024-06-10 14:54] LABS: AMPHETAMINES LEVEL URINE NEGATIVE (NEGATIVE); BARBITURATES URINE NEGATIVE (NEGATIVE); BENZODIAZEPINES URINE NEGATIVE (NEGATIVE); CANNABINOIDS URINE NEGATIVE (NEGATIVE); COCAINE METABOLITE URINE NEGATIVE (NEGATIVE); METHADONE URINE NEGATIVE (NEGATIVE); OPIATES URINE NEGATIVE (NEGATIVE); PHENCYCLIDINE URINE NEGATIVE (NEGATIVE)
[2024-06-10 14:54] LABS: HCG, SERUM QUALITATIVE NEGATIVE (NEGATIVE)
[2024-06-10] MEDS: LORazepam 0.5 MG TAB PO ONE (15:27)
[2024-06-10] MEDS ORDERED: diphenhydrAMINE 25MG CAP PO PRN (17:10)
[2024-06-10] MEDS ORDERED: MAALOX 30 ML SUSP *UDC PO PRN (17:10)
[2024-06-10] MEDS ORDERED: MOM 30ML SUSPENSION UDC PO PRN (17:10)
[2024-06-10 19:00] VITALS: BP 123/80; TEMP 97; O2SAT 99
[2024-06-10] MEDS: traZODone 50 MG TAB PO PRN (20:08)
[2024-06-10] MEDS: ACETAMINOPHEN TAB 650MG DOSE (2X325MG) PO PRN (21:28)
[2024-06-11 06:15] VITALS: BP 128/65; TEMP 97; O2SAT 99
[2024-06-11] MEDS ORDERED: OLAN1TAB20 PO (08:28)
[2024-06-11] MEDS ORDERED: HOME MED LIST COMPLETE! XX SCH (08:30)
[2024-06-11] MEDS: PALIPERIDONE 3MG ER TAB (INVEGA) PO SCH (12:09)
[2024-06-11 18:39] VITALS: BP 120/58; TEMP 98
[2024-06-11] MEDS: ETHINYL ESTRADIOL PO SCH (21:07)
[2024-06-11] MEDS: DESOGESTREL PO SCH (21:07)
[2024-06-11 21:28] VITALS: BP 120/58; TEMP 98; O2SAT 99
[2024-06-12 06:47] VITALS: BP 104/63; TEMP 98.2; O2SAT 99
[2024-06-12] MEDS: IBUPROFEN 400MG TAB PO PRN (17:16)
[2024-06-12 18:25] VITALS: BP 136/87; TEMP 98.7; O2SAT 99
[2024-06-13 06:01] VITALS: BP 119/76; TEMP 97.7; O2SAT 99
[2024-06-13 15:32] VITALS: BP 131/80; TEMP 97.8; O2SAT 98
[2024-06-13] MEDS: PALIPERIDONE 3MG ER TAB (INVEGA) PO SCH (20:06)
[2024-06-14 06:25] VITALS: BP 120/74; TEMP 97.9; O2SAT 95
[2024-06-14 16:02] VITALS: BP 134/84; TEMP 98.1; O2SAT 100
[2024-06-15 06:24] VITALS: BP 103/63; TEMP 98.2; O2SAT 97
[2024-06-15 15:53] VITALS: BP 128/76; TEMP 97.6; O2SAT 99
[2024-06-16 06:05] VITALS: BP 124/71; TEMP 97.7; O2SAT 99
[2024-06-16 18:38] VITALS: BP 129/70; TEMP 98; O2SAT 98
[2024-06-16] MEDS: oxyBUTYnin *DITROPAN XL* 5 MG TABCR PO SCH (20:03)
[2024-06-17 06:05] VITALS: BP 123/70; TEMP 98.5; O2SAT 98
[2024-06-17 15:52] VITALS: BP 130/78; TEMP 98.4; O2SAT 100
[2024-06-18 06:26] VITALS: BP 129/74; TEMP 97.7; O2SAT 100
[2024-06-18] MEDS ORDERED: OXYB-54 PO (12:25)
[2024-06-18] MEDS ORDERED: PALI1TAB2 PO (12:26)
[2024-06-18] MEDS ORDERED: TRAZ-252 PO (12:26)
== END 2024-06-18 14:56 | disposition home or self-care (01) | DRG 750 ==
LOC: M ED 12:59 → M ED INP 17:06 → M PSY 18:14
PROVIDERS: ADMIT Psychiatry & Neurology Psychiatry; ATTEND Psychiatry & Neurology Child & Adolescent Psychiatry
DX: F25.9 Schizoaffective disorder, unspecified (principal); K50.90 Crohn's disease, unspecified, without complications; F32.A Depression, unspecified; J45.20 Mild intermittent asthma, uncomplicated; Z79.899 Other long term (current) drug therapy

== ENCOUNTER → 2024-07-01 | Outpatient (REF) | payer OTHER, MEDICAID ==
[~2024-07-01] MED LIST changes: +OLAN1TAB20 PO; +OXYB-54 PO; +PALI1TAB2 PO; +TRAZ-252 PO
== END ==
LOC: M SFHCPLAZ 14:21
PROVIDERS: ATTEND Student in an Organized Health Care Education/Training Program
DX: Z00.00 Encounter for general adult medical examination without abnormal findings (principal); E55.9 Vitamin D deficiency, unspecified

== ENCOUNTER → 2024-07-03 | Outpatient (CLI) | payer OTHER, MEDICAID ==
[2024-07-03 13:44] LABS: BASO # 0.1 10^3/uL (0.0-0.2); BASO % 1.1 % (0.0-1.0); EOS # 0.1 10^3/uL (0.0-0.5); EOS % 1.7 % (0.0-3.0); HEMOGLOBIN 12.5 g/dl (12.0-15.5); LYMPH # 2.8 10^3/uL (1.5-5.0); LYMPH % 51.2 % (24.0-44.0); MEAN CORPUSCULAR HEMOGLOBIN 25.9 pg (27.0-33.0); MEAN CORPUSCULAR HGB CONC 32.1 g/dl (32.0-36.5); MEAN CORPUSCULAR VOLUME 80.7 fl (80.0-96.0); MONO # 0.2 10^3/uL (0.0-0.8); MONO % 4.3 % (2.0-8.0); NEUTROPHILS # 2.2 10^3/uL (1.5-8.5); NEUTROPHILS % 41.5 % (36.0-66.0); PLATELET COUNT, AUTOMATED 224 10^3/uL (150-450); RED BLOOD COUNT 4.83 10^6/uL (4.00-5.40); WHITE BLOOD COUNT 5.4 10^3/uL (4.0-10.0)
[2024-07-03 13:49] LABS: ALBUMIN 3.3 G/DL (3.2-5.2); ALKALINE PHOSPHATASE 139 U/L (46-116); ALT/SGPT 18 U/L (7.0-40); AST/SGOT 14 U/L (<34); BILIRUBIN,TOTAL 0.4 MG/DL (0.3-1.2); BLOOD UREA NITROGEN 8 MG/DL (9-23); CALCIUM LEVEL 8.7 MG/DL (8.5-10.1); CARBON DIOXIDE LEVEL 24 MMOL/L (20-31); CHLORIDE LEVEL 106 MMOL/L (98-107); CHOLESTEROL LEVEL 169 MG/DL (<200); CHOLESTEROL RISK RATIO 3.89 (<5); CREATININE FOR GFR 0.63 MG/DL (0.55-1.30); GLOMERULAR FILTRATION RATE > 60.0 (>60); GLUCOSE, FASTING 72 MG/DL (60-100); HDL CHOLESTEROL 43.4 MG/DL (>40); LDL CHOLESTEROL 97.2 MG/DL (<100); NON-HDL-C 125.6 MG/DL; POTASSIUM SERUM 4.2 MMOL/L (3.5-5.1); SODIUM LEVEL 137 MMOL/L (136-145); TOTAL PROTEIN 7.2 G/DL (5.7-8.2); TRIGLYCERIDES LEVEL 142 MG/DL (<150)
== END ==
LOC: M PLALAB 10:38
PROVIDERS: ATTEND Student in an Organized Health Care Education/Training Program
DX: Z00.00 Encounter for general adult medical examination without abnormal findings (principal); E55.9 Vitamin D deficiency, unspecified

== ENCOUNTER → 2024-08-19 | Outpatient (CLI) | payer OTHER | LOC: M PLALAB 14:18 | PROVIDERS: ATTEND Nurse Practitioner Family | DX: Z12.4 Encounter for screening for malignant neoplasm of cervix (principal); N64.3 Galactorrhea not associated with childbirth ==

== ENCOUNTER → 2024-10-22 | Outpatient (CLI) | payer OTHER | LOC: M WHC 08:28 | PROVIDERS: ATTEND Nurse Practitioner Family | DX: N64.3 Galactorrhea not associated with childbirth (principal); R92.8 Other abnormal and inconclusive findings on diagnostic imaging of breast ==

== ENCOUNTER 2024-10-31 10:37 | Outpatient (RCR) | payer OTHER | END 2024-11-11 | LOC: M PT 10:37 | PROVIDERS: ATTEND Nurse Practitioner Family | DX: N94.2 Vaginismus (principal) ==

== ENCOUNTER 2024-12-05 09:53 | Outpatient (RCR) | payer OTHER | END 2024-12-12 | LOC: M PT 09:53 | PROVIDERS: ATTEND Nurse Practitioner Family | DX: N94.2 Vaginismus (principal) ==

== ENCOUNTER → 2024-12-11 | Outpatient (CLI) | payer OTHER ==
[2024-12-11 09:04] VITALS: TEMP 98.7
[2024-12-11 10:09] VITALS: BP 104/76; O2SAT 100
== END ==
LOC: M WHCPRO 08:58
PROVIDERS: ATTEND Nurse Practitioner Family
DX: R92.8 Other abnormal and inconclusive findings on diagnostic imaging of breast (principal); N63.21 Unspecified lump in the left breast, upper outer quadrant

== ENCOUNTER → 2024-12-24 | Outpatient (CLI) | payer OTHER | LOC: M WHC 08:39 | PROVIDERS: ATTEND Nurse Practitioner Family | DX: N64.4 Mastodynia (principal) ==

== ENCOUNTER → 2025-01-09 | Outpatient (RCR) | payer OTHER | LOC: M PT 12-15 09:56 | PROVIDERS: ATTEND Nurse Practitioner Family | DX: N94.2 Vaginismus (principal) ==

== ENCOUNTER 2025-02-06 13:00 | Outpatient (RCR) | payer OTHER | END 2025-02-09 | LOC: M PT 13:00 | PROVIDERS: ATTEND Nurse Practitioner Family | DX: N94.2 Vaginismus (principal) ==

== ENCOUNTER 2025-03-06 09:07 | Outpatient (RCR) | payer OTHER | END 2025-03-11 | LOC: M PT 09:07 | PROVIDERS: ATTEND Nurse Practitioner Family | DX: N94.2 Vaginismus (principal) ==

== ENCOUNTER 2025-04-16 08:27 | Outpatient (RCR) | payer OTHER | END 2025-05-11 | LOC: M PT 08:27 | PROVIDERS: ATTEND Nurse Practitioner Family | DX: N94.2 Vaginismus (principal) ==

== ENCOUNTER 2025-05-29 12:08 | Outpatient (CLI) | payer OTHER ==
[~2025-05-29] VITALS: Ht 149.9 cm; Wt 76.6 kg
[2025-05-29 12:25] VITALS: BP 127/81; O2SAT 100
[2025-05-29] MEDS: VEDOLIZUMAB 300 MG in NS 250 ML IV ONE (13:10)
[2025-05-29 14:00] VITALS: BP 101/66; O2SAT 100
== END 2025-05-29 14:00 ==
LOC: M INFU 12:08
PROVIDERS: ATTEND Internal Medicine Gastroenterology
DX: K50.90 Crohn's disease, unspecified, without complications (principal)
CPT/HCPCS: 96413; J3380

== ENCOUNTER → 2025-06-03 | Outpatient (CLI) | payer OTHER ==
[~2025-06-03] MED LIST changes: +CLOZ50TA4
[2025-06-03 15:25] LABS: C REACTIVE PROTEIN QUANTITATIV 1.18 MG/DL (<1.0)
[2025-06-03 18:29] LABS: RHEUMATOID FACTOR QUANT < 3.5 IU/ML (<14)
== END ==
LOC: M PLAIMG 11:58
PROVIDERS: ATTEND Physician Assistant Medical
DX: M54.50 Low back pain, unspecified (principal); R20.2 Paresthesia of skin; M47.816 Spondylosis without myelopathy or radiculopathy, lumbar region; M43.06 Spondylolysis, lumbar region; M53.84 Other specified dorsopathies, thoracic region

== ENCOUNTER 2025-06-04 10:03 | Emergency (ER) | payer OTHER ==
[~2025-06-04] VITALS: Ht 149.9 cm; Wt 74.8 kg
[~2025-06-04 10:03] MED LIST changes: -CLOZ50TA4
[2025-06-04] MEDS ORDERED: CLOZ50TA4 (10:14)
[2025-06-04] MEDS: GABAPENTIN 300 MG CAP PO ONE (11:57)
[2025-06-04 12:20] LABS: BASO # 0.1 10^3/uL (0.0-0.2); BASO % 0.6 % (0.0-1.0); EOS # 0.2 10^3/uL (0.0-0.5); EOS % 2.0 % (0.0-3.0); LYMPH # 1.9 10^3/uL (1.5-5.0); LYMPH % 18.7 % (24.0-44.0); MONO # 0.5 10^3/uL (0.0-0.8); MONO % 5.0 % (2.0-8.0); NEUTROPHILS # 7.6 10^3/uL (1.5-8.5); NEUTROPHILS % 73.5 % (36.0-66.0); PLATELET COUNT, AUTOMATED 354 10^3/uL (150-450)
[2025-06-04 12:40] LABS: CALCIUM LEVEL 8.8 MG/DL (8.5-10.1); CARBON DIOXIDE LEVEL 24 MMOL/L (20-31); CHLORIDE LEVEL 104 MMOL/L (98-107); CREATININE FOR GFR 0.69 MG/DL (0.55-1.30); GLOMERULAR FILTRATION RATE > 90.0 (>60); MAGNESIUM LEVEL 2.0 MG/DL (1.8-2.4); POTASSIUM SERUM 4.0 MMOL/L (3.5-5.1); SODIUM LEVEL 142 MMOL/L (136-145)
[2025-06-04 13:15] VITALS: BP 125/80; TEMP 97.1; O2SAT 100
== END 2025-06-04 13:39 | disposition home or self-care (01) ==
LOC: M ED 10:03
DX: R20.2 Paresthesia of skin (principal); M54.9 Dorsalgia, unspecified; F31.9 Bipolar disorder, unspecified; F42.9 Obsessive-compulsive disorder, unspecified; F25.9 Schizoaffective disorder, unspecified; K50.90 Crohn's disease, unspecified, without complications; Z87.19 Personal history of other diseases of the digestive system

== ENCOUNTER → 2025-06-10 | Outpatient (CLI) | payer OTHER ==
[~2025-06-10] MED LIST changes: +CLOZ50TA4
== END ==
LOC: M PLAIMG 09:59
PROVIDERS: ATTEND Student in an Organized Health Care Education/Training Program
DX: R29.898 Other symptoms and signs involving the musculoskeletal system (principal); M43.16 Spondylolisthesis, lumbar region; M48.061 Spinal stenosis, lumbar region without neurogenic claudication; M47.817 Spondylosis without myelopathy or radiculopathy, lumbosacral region

== ENCOUNTER 2025-06-12 12:07 | Outpatient (CLI) | payer OTHER ==
[~2025-06-12] VITALS: Ht 180.3 cm; Wt 65.9 kg
[2025-06-12 12:15] VITALS: BP 128/81; O2SAT 100
[2025-06-12] MEDS: VEDOLIZUMAB 300 MG in NS 250 ML IV ONE (12:49)
== END 2025-06-12 13:28 | disposition home or self-care (01) ==
LOC: M INFU 12:07
PROVIDERS: ATTEND Internal Medicine Gastroenterology
DX: K50.90 Crohn's disease, unspecified, without complications (principal)
CPT/HCPCS: 96413; J3380

== ENCOUNTER → 2025-06-18 | Outpatient (CLI) | payer OTHER | LOC: M WHC 07:46 | PROVIDERS: ATTEND Nurse Practitioner Family | DX: R92.8 Other abnormal and inconclusive findings on diagnostic imaging of breast (principal); N60.02 Solitary cyst of left breast ==

== ENCOUNTER 2025-07-03 15:17 | Emergency (ER) | payer OTHER ==
[~2025-07-03] VITALS: Ht 149.9 cm; Wt 77.3 kg
[2025-07-03] MEDS: NS (Normal Saline) 0.9% 1,000 ML IV ONE (17:40)
[2025-07-03 18:37] LABS: KETONE, URINE AUTO RFX 1+ mg/dL (NEGATIVE); LEUKOCYTE ESTERASE UR AUTO RFX NEGATIVE (NEGATIVE); MUCUS, URINE RFX SMALL (NEGATIVE); NITRITE, URINE AUTO RFX NEGATIVE (NEGATIVE); RBC, URINE AUTO RFX 0 /HPF (0-3); SQUAM EPITHELIAL CELL UR AURFX 13 /HPF (0-6); WBC, URINE AUTO RFX 3 /HPF (0-3)
[2025-07-03 18:39] LABS: BASO # 0.1 10^3/uL (0.0-0.2); BASO % 0.7 % (0.0-1.0); EOS # 0.1 10^3/uL (0.0-0.5); EOS % 1.5 % (0.0-3.0); LYMPH # 2.2 10^3/uL (1.5-5.0); LYMPH % 25.0 % (24.0-44.0); MONO # 0.4 10^3/uL (0.0-0.8); MONO % 4.2 % (2.0-8.0); NEUTROPHILS # 5.9 10^3/uL (1.5-8.5); NEUTROPHILS % 68.3 % (36.0-66.0); PLATELET COUNT, AUTOMATED 364 10^3/uL (150-450)
[2025-07-03 19:06] LABS: CK-MB VALUE MASS < 1.0 NG/ML (<3.6)
[2025-07-03 19:07] LABS: ALT/SGPT 28 U/L (7.0-40); AST/SGOT 25 U/L (<34); CALCIUM LEVEL 9.8 MG/DL (8.5-10.1); CARBON DIOXIDE LEVEL 24 MMOL/L (20-31); CHLORIDE LEVEL 105 MMOL/L (98-107); CREATININE FOR GFR 0.74 MG/DL (0.55-1.30); GLOMERULAR FILTRATION RATE > 90.0 (>60); HCG, SERUM QUALITATIVE NEGATIVE (NEGATIVE); MAGNESIUM LEVEL 1.9 MG/DL (1.8-2.4); POTASSIUM SERUM 4.3 MMOL/L (3.5-5.1); SODIUM LEVEL 143 MMOL/L (136-145)
[2025-07-03 19:11] LABS: FREE T4 1.29 NG/DL (0.89-1.76)
[2025-07-03 19:15] LABS: CPK CREATINE PHOSPHOKINASE 42 U/L (34-145)
[2025-07-03] MEDS ORDERED: NEUR100C PO (21:27)
[2025-07-03 21:30] VITALS: BP 104/62; TEMP 97.2; O2SAT 99
[2025-07-03] MEDS: GABAPENTIN 100 MG CAP PO ONE (21:36)
== END 2025-07-03 21:45 | disposition home or self-care (01) ==
LOC: M ED 15:17
DX: G25.3 Myoclonus (principal); R26.81 Unsteadiness on feet; Z87.19 Personal history of other diseases of the digestive system; F32.A Depression, unspecified; F41.9 Anxiety disorder, unspecified; F25.9 Schizoaffective disorder, unspecified; F42.9 Obsessive-compulsive disorder, unspecified; Z79.899 Other long term (current) drug therapy

== ENCOUNTER → 2025-07-10 | Outpatient (CLI) | payer OTHER ==
[~2025-07-10] VITALS: Ht 149.9 cm; Wt 77.3 kg
[~2025-07-10] MED LIST changes: +NEUR100C PO
[2025-07-10 12:59] VITALS: BP 105/59; O2SAT 97
[2025-07-10] MEDS: VEDOLIZUMAB 300 MG in NS 250 ML IV ONE (13:40)
[2025-07-10 14:15] VITALS: BP 112/65; O2SAT 99
== END ==
LOC: M INFU 12:26
PROVIDERS: ATTEND Internal Medicine Gastroenterology
DX: K50.90 Crohn's disease, unspecified, without complications (principal)
CPT/HCPCS: 96413; J3380

== ENCOUNTER → 2025-09-28 | Outpatient (CLI) | payer OTHER ==
[2025-09-28 15:10] LABS: FREE T4 1.28 NG/DL (0.89-1.76)
[2025-09-28 15:12] LABS: PROLACTIN 7.25 NG/ML
[2025-09-28 15:26] LABS: ESTIMATED AVERAGE GLUCOSE 100.0 MG/DL (60-110)
[2025-09-29 08:54] LABS: DEHYDROEPIANDROSTERONE SULFATE 107 mcg/dL (14-349)
== END ==
LOC: M PLALAB 11:43
PROVIDERS: ATTEND Nurse Practitioner Family
DX: N92.6 Irregular menstruation, unspecified (principal)

== ENCOUNTER → 2025-10-07 | Outpatient (CLI) | payer OTHER ==
[~2025-10-07] MED LIST changes: +PROHANCE 279.3MG/ML 15ML VIAL ONE
== END ==
LOC: M PLAIMG 14:12
PROVIDERS: ATTEND Family Medicine
DX: G70.9 Myoneural disorder, unspecified (principal)
CPT/HCPCS: 70553; A9579

== ENCOUNTER → 2025-10-12 | Outpatient (CLI) | payer OTHER | LOC: M PLAIMG 10:34 | PROVIDERS: ATTEND Family Medicine | DX: G70.9 Myoneural disorder, unspecified (principal) | CPT/HCPCS: 72156; 72157; 90834; A9579 ==

== ENCOUNTER → 2025-10-29 | Outpatient (CLI) | payer OTHER ==
[~2025-10-29] MED LIST changes: -PROHANCE 279.3MG/ML 15ML VIAL ONE
== END ==
LOC: M RAD 06:33
PROVIDERS: ATTEND Nurse Practitioner Family
DX: N92.6 Irregular menstruation, unspecified (principal); R93.89 Abnormal findings on diagnostic imaging of other specified body structures